=== PATIENT | female | born 1940 | race Caucasian/White ===

== ENCOUNTER 2017-02-08 12:32 | Inpatient (IN) | payer OTHER, MEDICARE ==
[~2017-02-08] VITALS: Ht 170.2 cm; Wt 90.7 kg
--- NOTE | 2017-02-08 12:36 | ED DYSPNEA/ASTHMA COMPLAINT ---
See Addendum History of Present Illness General Chief Complaint: Dyspnea (COPD, CHF, Other) Stated Complaint: FEVER/SOB Source: old records, EMS Exam Limitations: confusion Vital Signs & Intake/Output Vital Signs & Intake/Output Vital Signs Date Time Temp Pulse Resp B/P Pulse O2 O2 Flow FiO2 Ox Delivery Rate 02/08 1320 97 Part 100% ReBreather 02/08 1317 96 Non 10L ReBreather 02/08 1250 85 24 96 Non 10L ReBreather 02/08 1235 97.3 85 30 147/69 71 Room Air F (NORTH DOS SANTOS) Allergies Coded Allergies: Penicillins (02/08/17) Sulfa (Sulfonamide Antibiotics) (02/08/17) amoxicillin (02/08/17) crab (02/08/17) erythromycin base (02/08/17) potassium iodide (02/08/17) Triage Nurses Notes Reviewed? yes Onset: Gradual Duration: getting worse Timing: recent history Severity: severe Activities at Onset: none HPI: Patient is a 76-year-old female with a past medical history of COPD, osteoarthritis, DIABETES, hyperlipidemia, HYPOTHYROIDISM, morbid obesity, opiate abuse, hypertension who presents to emergency room brought in by ambulance in which patient resides at [facility] for concerns of a 3 to four-day history of worsening gradual onset of lethargy confusion fevers chills and decrease O2 saturation and wheezing. It is noted through [facility] 10 the patient had negative chest x-ray however EMS states that patient was febrile and normotensive however O2 saturation on 3 L was noted to be 82%. Blood sugar was 108 on arrival patient's history is limited due to clinical condition of being confused. Old records do indicate the patient has positive urine culture susceptible to ampicillin (NORTH DOS SANTOS) Past History Medical History Any Pertinent Medical History? see below for history Cardiovascular: hypertension, hyperlipidemia Respiratory: COPD Endocrine: diabetes Surgical History Surgical History: non-contributory Family History Hx Contributory? No (NORTH DOS SANTOS) Review of Systems Review of Systems Constitutional: Reports: see HPI, fever. EENTM: Reports: no symptoms. Respiratory: Reports: see HPI, short of breath, wheezing. Cardiovascular: Denies: chest pain, peripheral edema. GI: Reports: no symptoms. Genitourinary: Reports: no symptoms. Musculoskeletal: Reports: no symptoms. Skin: Reports: no symptoms. Neurological/Psychological: Reports: no symptoms. Hematologic/Endocrine: Reports: no symptoms. Immunologic/Allergic: Reports: no symptoms. All Other Systems: Reviewed and Negative (NORTH DOS SANTOS) Physical Exam Physical Exam General Appearance: mild distress Respiratory: wheezing, respiratory distress (MILD) Comments: HEENT: Normal EENT exam, Neck: Supple, no lymphadenopathy, normal range of motion without pain or tenderness Back: , no CVA tenderness. Cardiovascular: Regular rate and rhythms no murmurs rubs or gallops, normal JVP Abdomen: Soft, nontender nondistended, no appreciable organomegaly. Normal bowel sounds. No ascites Extremity: No edema, no calf tenderness to palpation, normal and equal pulses. Right lower leg chronic well-healing old wound anterior aspect Neuro: Alert oriented x 0, motor sensory normal, Skin: No appreciable rash on exposed skin, skin is warm and dry. Psych: Mood and affect is normal, memory and judgment is normal. Core Measures ACS in differential dx? Yes Severe Sepsis Present: No BC x2: Yes Lactic Acid x2: Yes IV ABX Broad Spectrum: Yes NS/LR Started: Yes Septic Shock Present: No (NORTH DOS SANTOS) Progress Differential Diagnosis: asthma, AMI, bronchitis, costochondritis, CHF, COPD, musculoskeletal pain, pericarditis, pulmonary embolism, pneumonia, pneumothorax, unstable angina Plan of Care: Orders Procedure Date/time Status Renal Dialysis Diet 02/08 D Active LACTIC ACID 02/08 1535 Active URINE DRUGS OF ABUSE 02/08 1412 Active URINALYSIS 02/08 1411 Active Patient Data 02/08 1342 Active OXYGEN SETUP (GEN) 02/08 1341 Active Saline Lock 02/08 1341 Active Admit to inpatient 02/08 1341 Active Vital Signs 02/08 1341 Active Activity/Ambulation 02/08 1341 Active Code Status 02/08 1341 Active Intake & Output 02/08 1245 Active EKG 02/08 1240 Active ARTERIAL BLOOD GAS (GEN) 02/08 1235 Complete Telemetry/Posting Specialist 02/08 1235 Active RAPID VIRAL INFLUENZA A 02/08 1235 Complete BLOOD CULTURE 02/08 1235 Active VIRAL CULTURE 02/08 1235 Active THYROID STIMULATING HORMONE 02/08 1235 Complete TROPONIN LEVEL 02/08 1235 Complete LACTIC ACID 02/08 1235 Complete FREE T4 02/08 1235 Complete D-DIMER 02/08 1235 Complete COMPREHENSIVE METABOLIC PANEL 03/14 1235 Complete CBC WITHOUT DIFFERENTIAL 02/08 1235 Complete Current Medications Sig/[place] Start time Last Medication Dose Stop Time Status Admin Sodium Chloride 1,000 ML BOLUS ONE 02/08 1330 AC (Normal Saline 0.9%) 02/08 142 Sodium Chloride 1,000 ML BOLUS ONE 02/08 1330 AC (Normal Saline 0.9%) 02/08 142 Vancomycin HCl 1,000 MG ONCE ONE 02/08 133 CAN Dextrose/Water 250 ML 02/08 142 (D5W) Laboratory Tests 02/08/17 1255: pH 7.35, pCO2 44, pO2 140 H, HCO3 23, ABG O2 Sat (Measured) 98.0, P-50 (Temp Corrected) N, Carboxyhemoglobin 0.3 L, O2 Concentration % 100%, O2 Delivery Method NRB, Phlebotomy Draw Site RIGHT BRACHIAL 02/08/17 125: TSH Cancelled, Free T4 Cancelled 02/08/17 1253: Anion Gap 14, Estimated GFR 11 L, BUN/Creatinine Ratio 16.1, Glucose 165 H, Lactic Acid 1.9, Calcium 8.3 L, Total Bilirubin 0.4, AST 66 H, ALT 43, Alkaline Phosphatase 69, Troponin I 0.02, Total Protein 6.7, Albumin 3.9, Globulin 2.8, Albumin/Globulin Ratio 1.4, TSH 1.660, Free T4 1.55, D-Dimer 635 H, CBC w Diff NO MAN DIFF REQ, RBC 3.60 L, MCV 84.9, MCH 27.6, RDW 16.2 H, MPV 8.8, Gran % 72.4, Lymphocytes % 17.3 L, Monocytes % 9.8 H, Eosinophils % 0.1, Basophils % 0.4, Absolute Granulocytes 5.5, Absolute Lymphocytes 1.3, Absolute Monocytes 0.7 H, Absolute Eosinophils 0, Absolute Basophils 0, PUBS MCHC 32.5 L 02/08/17 1235: Virus Culture Pending, Urine Color Cancelled, Urine Clarity Cancelled, Urine pH Cancelled, Ur Specific [place] Cancelled, Urine Protein Cancelled, Urine Ketones Cancelled, Urine Nitrite Cancelled, Urine Bilirubin Cancelled, Urine Urobilinogen Cancelled, Ur Leukocyte Esterase Cancelled, Ur Microscopic Cancelled, Urine Hemoglobin Cancelled, Urine Glucose Cancelled Microbiology 02/08 1335 BLOOD: Blood Culture - RECD 02/08 1334 NASOPHARYN: Influenza Virus A & B Rapid Smear - COMP INFLUENZA TYPE B 02/08 1253 BLOOD: Blood Culture - RECD 02/08 1235 URINE ROUT: Urine Culture - CAN Cancelled: Cancelled via OE: Per MD Decision Patient had noted hypoxia with 3 L initially of O2 and which this was increased to nonrebreather patient responded well and then she was subsequently decreased to 6 L currently at 91% no respiratory distress. Patient does have concerns of wheezing and crackles and chest x-ray showing concerns OF pneumonia and which patient initially was administered vancomycin and Fortaz however due to critical findings of acute kidney injury that vancomycin was withheld and per hospital staffed they said that they will administer the antibiotics. Fortaz was continued and vancomycin was discontinued. Patient was ordered IV fluid resuscitation. I discussed admission with patient who agrees Patient had elevated d-dimer in which a pulmonary embolism isn't not essentially ruled out however patient will require a VQ scan Patient was given nebulizer treatment and IV steroids (NORTH DOS SANTOS) Diagnostic Imaging: Viewed by Me: Radiology Read. CXR Impression: see comments Initial ED EKG: normal p-waves, normal QRS complex, normal sinus rhythm, 82 BPM NSR Comments: PATIENT: RORY ZUNIGA PRESENT AGE: 76 PATIENT ACCOUNT NO: [id number] : 42 LOCATION: [facility] ORDERING PHYSICIAN: NORTH YOUNG SERVICE DATE: 02/08/17 EXAM TYPE: RAD - XRY-PORTABLE CHEST XRAY EXAMINATION: XR PORTABLE CHEST CLINICAL INFORMATION: Hypoxia. COPD. COMPARISON: None TECHNIQUE: Portable AP view of the chest was obtained. FINDINGS: Evaluation is limited by patient body habitus. Linear opacity in the right upper lobe is consistent with scarring or subsegmental atelectasis. No focal consolidation is demonstrated. There is no evidence for pulmonary edema. Heart size is mildly enlarged. There is unfolding of the thoracic aorta. IMPRESSION: Limited evaluation. Small linear opacity right upper lobe. Mildly enlarged cardiac silhouette. (NORTH DOS SANTOS) Departure Departure Disposition: STILL A PATIENT Condition: Guarded Clinical Impression Primary Impression: Pneumonia Secondary Impressions: Acute kidney failure, COPD (chronic obstructive pulmonary disease), Respiratory failure Referrals: ROB HICKS MD (PCP/Family) Departure Forms: Customer Survey General Discharge Information Admission Note Spoke With: ESTUARDO VERMA MD Documentation of Exam: Documentation of any treatments & extenuating circumstances including Concerns Regarding Discharge (functional status, medication knowledge or non-compliance, living conditions, etc.) that warrant an admission rather than observation: [ Discussed admission with Dr. Verma who agrees with general medicine admission for concerns of pneumonia, respiratory failure and kidney failure in which patient requires IV antibiotics, IV fluid resuscitation and IV steroids and NEB treatments repeat labs outpatient treatment at this time due to critical findings would be medically harmful] (NORTH DOS SANTOS) PA/MOLD MAKER PLASTER Co-Sign Statement Statement: ED Attending supervision documentation- x I saw and evaluated the patient. I have also reviewed all the pertinent lab results and diagnostic results. I agree with the findings and the plan of care as documented in the PA's/MOLD MAKER PLASTER's documentation. [] I have reviewed the ED Record and agree with the PA's/MOLD MAKER PLASTER's documentation. [] Additions or exceptions (if any) to the PAs/MOLD MAKER PLASTER's note and plan are summarized below: [] (BLANCHE ARAGON,ANTONIO) Critical Care Note Critical Care Note Critical Care Time: 30-74 min (NORTH DOS SANTOS)
--- NOTE | 2017-02-08 12:45 | NUR ---
SUSAN FROM [facility] C/C FEVERS AND AMS SINCE TUESDAY. PT ARRIVES AGITATED AND O2 SAT 71% ON ROOM AIR, ONLY IMPROVED TO 77% ON 6LNC. DIFFUSE WHEEZES THROUGHOUT LUNG MENDEZ, TACHYPNIC RATE 30. PLACED ON HIGH FLOW NRB IMPROVED O2 SAT 96% AND RESP THERAPIST PAGED FOR BREATHING TREATMENT. ARRIVES DISORIENTED TO PLACE AND TIME, IRRITABLE AND DEMANDING TO GO HOME. ABLE TO BE VERBALLY DEESCALATED WITH EMOTIONAL SUPPORT PROVIDED. DENIES N/V/D BUT ABDOMEN SLIGHTLY DISTENDED AND LEGS SWOLLEN R>L WITH WELL HEALING CHRONIC ULCER.
--- NOTE | 2017-02-08 12:59 | NUR ---
RT AT BEDSIDE FOR DUONEB AND ABG. LABS DRAWN AND SENT (BLUE, SST X2, LAV, MENDOSA, CULTURES X1 SET). PT REMAINS IRRITABLE AND RESISTANT TO TX. SINUS RATE 83 ON CM AND AFEBRILE BUT COLD AND CLAMMY TO TOUCH. O2 SAT 96% DURING TX
[2017-02-08 13:07] LABS: ABSOLUTE BASOPHIL COUNT 0 /CUMM (0.0-0.2); ABSOLUTE EOSINOPHIL COUNT 0 /CUMM (0.0-0.7); ABSOLUTE GRANULOCYTE CT 5.5 /CUMM (1.4-6.5); ABSOLUTE LYMPH COUNT 1.3 /CUMM (1.2-3.4); ABSOLUTE MONOCYTE COUNT 0.7 /CUMM (0.10-0.60); BASOPHIL % 0.4 % (0.0-2.0); EOSINOPHIL % 0.1 % (0-5); GRANULOCYTE % 72.4 % (42.2-75.2); HEMATOCRIT 30.6 % (37-47); MEAN CORPUSCULAR HGB 27.6 PG (27.0-31.0); MEAN CORPUSCULAR HGB CONC 32.5 G/DL (33.0-37.0); MEAN CORPUSCULAR VOLUME 84.9 FL (81.0-99.0); MEAN PLATELET VOLUME 8.8 FL (7.4-10.4); PLATELET COUNT 214 /CUMM (130-400); RBC DISTRIBUTION WIDTH 16.2 % (11.5-14.5); WHITE BLOOD CELL COUNT 7.6 /CUMM (4.8-10.8)
--- NOTE | 2017-02-08 13:17 | RADIOLOGY REPORT ---
EXAMINATION: XR PORTABLE CHEST CLINICAL INFORMATION: Hypoxia. COPD. COMPARISON: None TECHNIQUE: Portable AP view of the chest was obtained. FINDINGS: Evaluation is limited by patient body habitus. Linear opacity in the right upper lobe is consistent with scarring or subsegmental atelectasis. No focal consolidation is demonstrated. There is no evidence for pulmonary edema. Heart size is mildly enlarged. There is unfolding of the thoracic aorta. IMPRESSION: Limited evaluation. Small linear opacity right upper lobe. Mildly enlarged cardiac silhouette.
--- NOTE | 2017-02-08 13:17 | NUR ---
PT DECREASED TO 60% AND TOLERATING WELL. LETHARGIC AND AROUSABLE TO VERBAL STIMULI
--- NOTE | 2017-02-08 13:36 | NUR ---
FLU SWAB OBTAINED/SENT TO LAB. NORTH YOUNG IN RE-EVAL AND SPEAK WITH PT REGARDING PLAN OF CARE, BAILEY. XIAO MCHUGH AT BEDSIDE FOR BLOOD CULTURE # 2.
--- NOTE | 2017-02-08 13:44 | NUR ---
UPDATE GIVEN TO NURSE AT [facility] REGARDING ADMISSION
--- NOTE | 2017-02-08 13:50 | NUR ---
MED WITH FORTAZ 1GM IV ORDERED, TOLERATED WELL. IVF'S NS 1L BOLUS #1 INFUSING WITHOUT DIFFICULTY AT THIS TIME.
--- NOTE | 2017-02-08 14:01 | NUR ---
CRITICAL TEST RESULTS [id number] RORY ZUNIGA 76 F TESTS AND RESULTS: INFLUENZA B Results received and read back by: ADDY SIM Results received date and time: 02/08/17 1402 The following provider was notified of the results, and read the results back: HANNAH JACKSON Notified date and time: 02/08/17 at 1400
--- NOTE | 2017-02-08 14:24 | NUR ---
PT ADMITTED TO ROOM 184-1
--- NOTE | 2017-02-08 14:27 | NUR ---
DAUGHTER TINO ZUNIGA [phone] ( CELL) , (HOME), PLEASE UPDATE.
--- NOTE | 2017-02-08 14:30 | NUR ---
PT SLEEPING, VERBALLY AROUSABLE. HOUSE STAFF AT BEDSIDE FOR EVAL AT THIS [facility].
--- NOTE | 2017-02-08 15:23 | NUR ---
REPORT CALLED TO TELE NURSE DEIDRE. PT ASKING TO GO HOME "I HAVE TO GET HOME TO MY ", O2 DECREASED TO PT'S BASELINE 4L NC, PT UP TO BEDSIDE COMMODE TO VOID, URINE APPEARS CLOUDY DARK YELLOW, STRONG ODOR. URINE TRIO SENT TO LAB. O2 SATS WHEN RETURNED TO STRETCHER, 77% ON 4L NC, HOUSE STAFF IN TO EVAL AND AWARE. O2 SATS 90-91% ON 6L NC AT THIS TIME.
--- NOTE | 2017-02-08 15:25 | NUR ---
IVF'S NS 1L # 2 BOLUS INFUSING WITHOUT DIFFICULTY AT THIS TIME.
--- NOTE | 2017-02-08 15:49 | NUR ---
PT ACCIDENTLY PULLED IV OUT, # 20 PLACE TO RW, IVF'S NS 1L # 2 RE-STARTED, INFUSING WITHOUT DIFFICULTY AT THIS TIME, HOSPITALIST DR PAVON IN TO EVAL AT PRESENT.
--- NOTE | 2017-02-08 16:00 | NUR ---
PT REQUESTING TO GO BACK TO [facility] TO BE WITH HER , PT SPEAKING ON PHONE WITH DAUGHTER, DR PAVON REMAINS AT BEDSIDE.
--- NOTE | 2017-02-08 16:09 | History & Physical ---
See Addendum NEISHA ARAGON,[facility] 02/08/17 1608: General Information and HPI MD Statement: I have seen and personally examined RORY ZUNIGA and documented this H&P. The patient is a 76 year old F who presented with a patient stated chief complaint of [alter mental status confusion]. Source of Information: patient, old records, W10 Exam Limitations: poor historian History of Present Illness: 76/F with PMH of COPD, hypertension, hyperlipidemia, diabetes who was send [facility] by [facility] because of altered mental status and confusion that started last Tuesday. Initially patient refused admission, because she would like to stay with her at [facility], after more than an hour she agreed to be admitted if we allowed her to leave AMA when she want to. Patient was mildly agitated and did not provide sufficient history. Most of the history was obtained from the nurse home staff and W 10. Last Tuesday she had a fever, confusion and altered mental status soon after she started respiratory distress and started to desaturate. Patient present to the ED 3 days ago for which UA and urine culture was done, result was back positive for enterococcus that sensitive to ampicillin, vancomycin, nitrofurantion. Allergies/Medications Allergies: Coded Allergies: Penicillins (02/08/17) Sulfa (Sulfonamide Antibiotics) (02/08/17) amoxicillin (02/08/17) crab (02/08/17) erythromycin base (02/08/17) potassium iodide (02/08/17) Past History Travel History Traveled to [place] past 21 day No Medical History Neurological: migraine EENT: NONE Cardiovascular: hypertension, hyperlipidemia Respiratory: COPD Gastrointestinal: NONE Hepatic: NONE Renal: NONE Musculoskeletal: osteoarthritis, CHRONIC PAIN Psychiatric: OPIOID ABUSE Endocrine: diabetes Blood Disorders: NONE Cancer(s): NONE Surgical History Surgical History: non-contributory Review of Systems Review of Systems Constitutional: Denies: chills, fever. Comments She refused to give review system, because she was refusing the admissions Exam & Diagnostic Data Last 24 Hrs of Vital Signs/I&O Vital Signs Date Time Temp Pulse Resp B/P Pulse O2 O2 Flow FiO2 Ox Delivery Rate 02/08 1849 93 Nasal 75% Cannula 02/08 184 91 Nasal 75% Cannula 02/08 181 98.5 80 20 138/70 91 Nasal 75% Cannula 02/08 1744 Nasal 70% Cannula 02/08 1620 99.8 88 20 128/90 92 02/08 1534 91 Nasal 6.0L Cannula 02/08 1534 77 Nasal 4.0L Cannula 02/08 1430 97.5 88 24 132/84 91 Nasal 6.0L Cannula 02/08 1320 97 Part 100% ReBreather 02/08 1317 96 Non 10L ReBreather 02/08 1250 85 24 96 Non 10L ReBreather 02/08 1235 97.3 85 30 147/69 71 Room Air Intake & Output 02/08 1600 02/08 0800 02/08 0000 Intake Total 2000 Output Total Balance 1999 Intake, IV 2000 Patient 108.862 kg Weight Physical Exam General Appearance Alert, Oriented X3, not cooperative and refusing admission Skin No Rashes HEENT Atraumatic, PERRLA, dry mucous membrane Cardiovascular Regular Rate, Normal S1, Normal S2, No Murmurs Lungs decreased air entry over both lungs Abdomen Soft, No Tenderness Neurological Normal Speech Extremities right leg has a large scar because of previous nonhealing ulcer that was treated surgically Last 24 Hrs of Labs/Carl[place]: Laboratory Tests 02/08/17 1936: pH 7.33 L, pCO2 44, pO2 89, HCO3 23, ABG O2 Sat (Measured) 95.0 L, P-50 (Temp Corrected) N, Carboxyhemoglobin 0.2 L, O2 Concentration % 75%, Temperature 98.5 , O2 Delivery Method HIGH FLOW N/C, Phlebotomy Draw Site RIGHT BRACHIAL 02/08/17 1800: Lactic Acid 1.0 02/08/17 1800: Anion Gap 10, Estimated GFR 15 L, BUN/Creatinine Ratio 19.0, Urinalysis LIGHT H, Urine Color YEL, Urine Clarity HAZY H, Urine pH 6.0, Ur Specific [place] 1.015, Urine Protein TRACE H, Urine Ketones NEG, Urine Nitrite POS H, Urine Bilirubin NEG, Urine Urobilinogen 0.2, Ur Leukocyte Esterase SMALL H, Ur Microscopic SEDIMENT EXAMINED, Urine RBC 1-3, Urine WBC 15-25 H, Ur Epithelial Cells FEW, Urine Bacteria MOD H, Urine Hemoglobin MOD H, Urine Glucose NEG 02/08/17 1520: Urine Color YEL, Urine Clarity HAZY H, Urine pH 5.5, Ur Specific [place] 1.025, Urine Protein TRACE H, Urine Ketones NEG, Urine Nitrite POS H, Urine Bilirubin NEG, Urine Urobilinogen 0.2, Ur Leukocyte Esterase MOD H, Ur Microscopic SEDIMENT EXAMINED, Urine RBC PACKD H, Urine WBC PACKD H, Ur Epithelial Cells MANY H, Urine Bacteria MANY H, Urine Hemoglobin MOD H, Urine Glucose NEG 02/08/17 1520: Urine Opiates Screen 1387.00, Methadone Screen 82, Barbiturate Screen < 60, Ur Phencyclidine Scrn < 6.00, Amphetamines Screen < 100, U Benzodiazepines Scrn < 85, Urine Cocaine Screen < 50, Urine Cannabis Screen < 5.00, Ur Random Creatinine 136.2, Ur Random Sodium 49, Ur Random Potassium 21.1, Fraction Sodium Excret 1.1 H 02/08/17 1255: pH 7.35, pCO2 44, pO2 140 H, HCO3 23, ABG O2 Sat (Measured) 98.0, P-50 (Temp Corrected) N, Carboxyhemoglobin 0.3 L, O2 Concentration % 100%, O2 Delivery Method NRB, Phlebotomy Draw Site RIGHT BRACHIAL 02/08/17 1253: TSH Cancelled, Free T4 Cancelled 02/08/17 1253: Anion Gap 14, Estimated GFR 11 L, BUN/Creatinine Ratio 16.1, Glucose 165 H, Lactic Acid 1.9, Calcium 8.3 L, Total Bilirubin 0.4, AST 66 H, ALT 43, Alkaline Phosphatase 69, Troponin I 0.02, Total Protein 6.7, Albumin 3.9, Globulin 2.8, Albumin/Globulin Ratio 1.4, TSH 1.660, Free T4 1.55, D-Dimer 635 H, CBC w Diff NO MAN DIFF REQ, RBC 3.60 L, MCV 84.9, MCH 27.6, RDW 16.2 H, MPV 8.8, Gran % 72.4, Lymphocytes % 17.3 L, Monocytes % 9.8 H, Eosinophils % 0.1, Basophils % 0.4, Absolute Granulocytes 5.5, Absolute Lymphocytes 1.3, Absolute Monocytes 0.7 H, Absolute Eosinophils 0, Absolute Basophils 0, PUBS MCHC 32.5 L 02/08/17 1235: Virus Culture Pending, Urine Color Cancelled, Urine Clarity Cancelled, Urine pH Cancelled, Ur Specific [place] Cancelled, Urine Protein Cancelled, Urine Ketones Cancelled, Urine Nitrite Cancelled, Urine Bilirubin Cancelled, Urine Urobilinogen Cancelled, Ur Leukocyte Esterase Cancelled, Ur Microscopic Cancelled, Urine Hemoglobin Cancelled, Urine Glucose Cancelled Microbiology 02/08 1800 URINE ROUT: Urine Culture - RECD 02/08 1335 BLOOD: Blood Culture - RECD 02/08 1334 NASOPHARYN: Influenza Virus A & B Rapid Smear - COMP INFLUENZA TYPE B 02/08 1253 BLOOD: Blood Culture - RECD 02/08 1235 URINE ROUT: Urine Culture - CAN Cancelled: Cancelled via OE: Per MD Decision Assessment/Plan Assessment: #Alter mental status and confusion Patient presented with confusion that started last Tuesday, she was found to have UTI that proven by urine culture that was done 3 days ago. The culture grew enterococci that's sensitive for penicillin and vancomycin, however she is allergic to penicillin. * We will start patient on vancomycin * We will order random Vanco level in the morning and dose accordingly #Acute hypoxic respiratory failure Patient has a history of COPD she is on 4 L of oxygen at home. She was found to have influenza B. . She desaturated in the ED and now she oxygen requirement has increased. * Patient will be on Tamiflu * She will be given oxygen as needed #Acute kidney injury Patient creatinine was 4.1 on admission, it was WNL 3 days ago, this is most likely because of the dehydration. At BUN/creatinine is above 15 which indicated prerenal. * We will order urine electrolytes * We will continue hydration * We will recheck renal function tonight * We will place Vaca to strictly control I/os * If did not improve we will consult nephrology #Hypertension and DM * We will continue antihypertensive medication * We will place patient on Levemir and sliding scale Consistent carbohydrate 3 DVT prophylaxis heparin subcutaneous DNR/DNI As Ranked By This Provider Problem List: 1. Acute kidney failure 2. Respiratory failure Core Measures/Miscellaneous Acute Coronary Syndrome ACS Diagnosis: No Cerebrovascular Accident CVA/TIA Diagnosis: No Congestive Heart Failure CHF Diagnosis: No Venous Thromboembolism VTE Risk Factors: Acute medical illness, Age > 40, Obesity [facility] prophylaxis d/t: No contraindications No VTE Pharm Prophylaxis d/t: No contraindications VTE Diagnosis: No VTE Type: NONE VTE Confirmed by (Test): NONE Severe Sepsis Severe Sepsis Present: No BC x2: Yes Lactic Acid x2: Yes IV ABX Broad Spectrum: Yes NS/LR Started: Yes Septic Shock Septic Shock Present: No Miscellaneous Documentation Attending Case Discussed With: ESTUARDO PAVON MD Primary Care Physician: ROB HICKS MD Patient sees these Specialists ROB HICKS MD Level of Patient Care: Telemetry JOHN ARAGONCATARINA 02/08/17 1752: General Information and HPI Allergies/Medications Home Med list Diltiazem HCl (Cardizem Cd) 180 MG CAP.ER.24H 1 CAP PO DAILY HTN (Reported) Hydrochlorothiazide 25 MG TABLET 1 TAB PO DAILY BLOOD PRESSURE (Reported) Insulin Aspart (Novolog) 100 UNIT/ML VIAL 12 UNITS SC TIDAC DM (Reported) Insulin Detemir (Levemir) 100 UNIT/ML VIAL 26 UNITS SC BID DM (Reported) Levothyroxine Sodium 75 MCG TABLET 1 TAB PO DAILY HYPOTHYROID (Reported) Linagliptin (Tradjenta) 5 MG TABLET 1 TAB PO DAILY DM (Reported) Liraglutide (Victoza 2-Juan) 0.6 MG/0.1 ML (18 MG/3 ML) PEN.INJCTR 1.2 MG SC DAILY DM (Reported) Meloxicam 15 MG TABLET 1 TAB PO DAILY PAIN (Reported) Metformin HCl 1,000 MG TABLET 1 TAB PO BID DM (Reported) Montelukast Sodium 10 MG TABLET 1 TAB PO DAILY COUGH (Reported) Resident Review Statement Resident Statement: examined this patient, discussed with fall intern, agreed with fall intern, discussed with family, reviewed EMR data (avail) Other Findings: 76-year-old female with past medical history of COPD, hypertension, hyperlipidemia, diabetes presents from [facility] with complaints of confusion that started last Tuesday. Patient was unable to give information as she was very agitated and adamant about being discharged. Information was obtained from the halfway staff. According to the staff She was febrile this last Tuesday associated with confusion. Patient also was have respiratory distress which started at the same time. Mohamud has some forgetfullness at base line but other hurley able to make decisions. ROS was unobtainable as she was refusing to be admitted SHe has UA done 3 days ago and clutures are growing enterococcus sensitive to vancomycin, nitrofuratoin, ampicillin Please refer to H&P for Labs and Imaging Assesment and plan: 1. Confusion in the setting of UTI/flu positive: We will admit patietn in GM floor. Start her on Vancomycin as she is allergic to penicillin and she is unable to give information on allergy. We will give one dose and check random vanco and dose accordingly. Will follow up CBC. Start tamiflu renally adjusted. Her dose should be inreased in AM if cr normalises. 2. Acute hyoxic respiratory failure in the setting of flu and h/o COPD: Her O2 sats stabelized and she was in 6 L NC( 4 L at baseline) We will continue TRC nebs. 3. JAIRO: moslty prerenal. We will add on Fena( unclear if this will beof any use as patient received IV fluids) We will continue hydraion. Recheck BEPtonight. If cr does not normalize we will check renal u/. s and nephrology consult in AM. We will place foles in for I/O's 4. HTN: we will continue her home medication 5. DM: we will continue on Levemir and NSS with finger sticks DNR/DNI DVT ppx with heparin ESTUARDO WEBB MD 02/08/172125: Attending MD Review Statement Attending Statement Attending MD Statement: examined this patient, discuss w/resident/PA/HEADER BOSS, agreed w/resident/PA/HEADER BOSS, discussed with family, reviewed EMR data (avail), discussed with nursing, reviewed images, amended to note Attending Assessment/Plan: The patient is a 76 yo female with h/o COPD, HTN, DM2, & HL who was sent from [facility] today to the [place] ED with c/o dyspnea, hypoxemia and cough. She was found to be hypoxic with pulse ox 82% and required oxygen. Was also found to have JAIRO with Cr 3.1. Her rapid flu test in the ED was positive for influenza B. She denied any fever though has had some chills. Cough has been non -productive. She initially wished to leave the ED as her is also a patient at [facility]. Once discussed with me and her daughter (via phone), she agreed to stay. She had been noted to be confused on initial presentation, however her mental status improved post oxygen and treatment. She had a positive urine culture done at the [facility] that grew enterococcus. Physical Exam: VS: T 97.3, P 84, R 30 BP 17/69, PO 71% on RA on presentation- PO 91R on 75% mask- improved post treatment. HEENT: eyes- PERRLA, EOMI nisreen- dry mucosa Neck: no JVD or bruits Chest: diminished breath sounds and mild rhonchi/wheeze Cor: RRR, nl S1, S2 w/o murm Abd: BS+, soft, NT Ext: RLE scar as described above, trace edema Neuro: alert & oriented at time of my exam, non-focal neuro exam Labs/Tests- as above Impression/Plan: #Altered Mental Status- presented with increased confusion that is most likely multifactorial. She has been hypoxemia and with UTI. Also positive for influenza B. Plan: Will treat above and monitor mental status. #Acute & Chronic Hypoxic Respiratory Failure- due to COPD exacerbation and influenza. Oxygen requirement has increased. Flu was not known initially in ED. Plan: Agree with Tamiflu (adjust for renal failure) and follow. #Acute Kidney Injury- most likely secondary to volume depletion. Plan: Agree with hydration & close follow-up. If not improving will do renal US and obtain nephrology consult. #COPD- does have some wheezing. Plan: Albuterol aerosol, etc. Continue to evaluate for steroids, however will hold at present due to known influenza. #HTN- BP as above. Plan: Continue usual medications. #UTI- has enterococcal UTI. Patient is PCN allergic (anaphylaxis) Plan: Agree with 1 dose of Vanco and will decide tomorrow regarding alternatives.
--- NOTE | 2017-02-08 16:18 | NUR ---
NS 1L BOLUS # 3 INFUSING WITHOUT DIFFICULTY AT THIS TIME.
--- NOTE | 2017-02-08 16:19 | NUR ---
PT ROOM # 184-01 VIA STRETCHER WITH DISTRIBUTION AT THIS TIME.
[2017-02-08] MEDS ORDERED: HYDROCHLOROTHIA25 M1 PO (16:40)
[2017-02-08] MEDS ORDERED: LEVOTHYROXINE75 MCG PO (16:41)
[2017-02-08] MEDS ORDERED: TRADJENTA5 M1 PO (16:41)
[2017-02-08] MEDS ORDERED: METFORMIN HCL1000 M1 PO (16:42)
[2017-02-08] MEDS ORDERED: NOVOLOG100 UNIT/2 SC (16:43)
[2017-02-08] MEDS ORDERED: VICTOZA 2-0.6 MG/0.1 SC (16:43)
[2017-02-08] MEDS ORDERED: LEVEMIR100 UNIT/1 SC (16:44)
[2017-02-08] MEDS ORDERED: MELOXICAM15 M1 PO (16:44)
[2017-02-08] MEDS ORDERED: MONTELUKAST SOD10 M1 PO (16:44)
[2017-02-08] MEDS ORDERED: CARDIZEM CD180 M1 PO (16:45)
[2017-02-08 18:12] VITALS: BP 138/70
--- NOTE | 2017-02-08 18:19 | Admission Certification ---
Admission Certification Certification Statement - As attending physician, I certify that at the time of - admission, based on clinical presentation, severity of - symptoms, need for further diagnostic testing and - therapeutic interventions, and risk of adverse outcomes - without in-hospital treatment, in my clinical assessment, - this patient requires an acute hospital stay for a minimum - of two nights or longer. I have also considered psychsocial - factors such as support system, advanced age, financial - issues, cognitive issues, and failed out-patient treatments, - past re-admission history, safety of patient, and lack of - compliance as applicable. Specific rationale supporting this admission is: The patient presents with acute hypoxic respiratory failure secondary to influenza B and acute renal failure. Needs IV hydration, Tamiflu, close respiratory monitoring and nasal oxygen. Close follow-up of renal function.
--- NOTE | 2017-02-08 19:39 | NUR ---
PT ADMITTED FROM ED. CARNEY CATH PLACED, UA/UC SENT. K AND LACTIC SENT. BS 252, COVERED W NOVOLOG AND DIET OREDERED AND PROVIDED TO PT. PROGRESIVELY BECAME AGITATED, RESTLESS, AGITATED, SOB, DIAPHORETIC. 02 SATS 80'S ON 6L. PT PLACED ON HIGH FLOW NC 70 %, INCREASED TO 75%. DR CAREY TO BEDSIDE. ABG DRAWN. PT GIVEN RESP TX. PUT ON BEDSIDE PULSE OX MONITOR. PT SATS STABLE ON 75% NC. LESS AGITATED AT THIS TIME. REPORT GIVEN TO ONCOMING RN.
[2017-02-09 04:54] VITALS: BP 142/86
--- NOTE | 2017-02-09 07:10 | PN- Housestaff ---
MORENA CAREY 02/09/17 0709: Subjective Follow-up For: - UTI - JAIRO - Flu Tele-Events Since Last Visit: Currently [facility] hold Subjective: The patient was comfortable this morning. Has been complaining of difficulty breathing. Has been unhappy that she is being admitted in the hospital. Vitals were stable overnight. Oxygen saturation, drop noted when supplemental oxygen was being titrated down. Gave a history of COPD 1 year, and no clear knowledge of pulmonary evaluation being done. Requested Freddie Ritter MD for evaluation. Discussed with the patient about the possibility of getting ultrasound Dopplers lower extremities to rule out any DVT, ultrasound abdomen to rule out any intra- abdominal pathology. Also recommended CT chest. The patient declined the above -mentioned tests. Review of Systems Constitutional: Reports: see HPI. Objective Last 24 Hrs of Vital Signs/I&O Vital Signs Date Time Temp Pulse Resp B/P Pulse O2 O2 Flow FiO2 Ox Delivery Rate 02/09 0454 96.8 79 22 142/86 94 Nasal 75% Cannula 02/09 0358 97 Nasal 75% Cannula 02/09 0000 97 Nasal 70% Cannula 02/08 2051 95 Nasal 75% Cannula 02/08 1849 93 Nasal 75% Cannula 02/08 1843 91 Nasal 75% Cannula 02/08 1812 98.5 80 20 138/70 91 Nasal 75% Cannula 02/08 1744 Nasal 70% Cannula 02/08 1620 99.8 88 20 128/90 92 02/08 1534 91 Nasal 6.0L Cannula 02/08 1534 77 Nasal 4.0L Cannula 02/08 1430 97.5 88 24 132/84 91 Nasal 6.0L Cannula 02/08 1320 97 Part 100% ReBreather 02/08 1317 96 Non 10L ReBreather 02/08 1250 85 24 96 Non 10L ReBreather 02/08 1235 97.3 85 30 147/69 71 Room Air Intake & Output 02/09 0800 02/09 0000 02/08 1600 Intake Total 1040 2280 2000 Output Total 1900 1800 Balance -746 074 9473 Intake, IV 800 1800 2000 Intake, Oral 240 480 Output, Urine 1900 1800 Patient 200 lb 240 lb Weight Physical Exam General Appearance: No Acute Distress Other Physical Findings: General Exam: AAOx3, No acute distress, Skin: No rashes, no breakdown HEENT: PERRLA Neck: Supple, No JVD No cervical lymphadenopathy CVS: Reg Rate, Normal S1,S2, No MGR Resp: Decreased air entry, no ronchi/rales Abdomen: Soft, No tenderness, Normal Bowel Sounds Neuro: Normal Speech, limited neurological exam, the patient uncooperative. Extremities: No cyanosis, pedal edema Current Medications: Current Medications Sig/[place] Start time Last Medication Dose Route Stop Time Status Admin Acetaminophen 650 MG Q8P PRN 02/08 1715 AC 02/09 PO 0034 Acetaminophen 1,000 MG Q8P PRN 02/08 1715 AC IV Albuterol Sulfate 3 ML BID 02/08 2200 AC 02/08 INH 1846 Albuterol Sulfate 3 ML ONCE ONE 02/08 1245 DC 02/08 INH 02/08 1246 1258 Ceftazidime 0 .STK-MED ONE 02/08 1342 DC .ROUTE Ceftazidime 1,000 MG ONCE ONE 02/08 1330 DC 02/08 IV 02/08 1331 1340 Diltiazem HCl 180 MG DAILY 02/09 1000 AC PO Heparin Sodium 5,000 UNIT Q8 02/08 2200 AC 02/09 (Porcine) SC 0601 Insulin Aspart 0 TIDAC 02/08 1700 AC 02/08 SC 1805 Insulin Detemir 26 UNITS BID 02/08 2200 AC 02/08 SC 2131 Ipratropium [place] 2.5 ML BID 02/08 2200 AC 02/08 INH 1846 Ipratropium [place] 2.5 ML ONCE ONE 02/08 1245 DC 02/08 INH 02/08 1246 1258 Levothyroxine Sodium 0.075 MG DAILY AC 02/09 0700 AC 02/09 PO 0601 Methylprednisolone 0 .STK-MED ONE 02/08 1306 DC .ROUTE Methylprednisolone 125 MG ONCE ONE 02/08 1245 DC 02/08 IV 02/08 1246 1310 Montelukast Sodium 10 MG DAILY 02/09 1000 AC PO Morphine Sulfate 1 MG Q8P PRN 02/08 1715 AC IV Oseltamivir Phosphate 75 MG BID 02/08 2200 CAN PO 02/12 2159 Oseltamivir Phosphate 30 MG 1800 02/08 1800 AC 02/08 PO 02/12 1759 2129 Ramelteon 8 MG ONCE ONE 02/08 2300 DC 02/08 PO 02/08 2301 2249 Sodium Chloride 1,000 ML Q10H 02/08 1645 AC 02/09 IV 0027 Sodium Chloride 1,000 ML BOLUS ONE 02/08 1330 DC 02/08 IV 02/08 1429 1340 Sodium Chloride 1,000 ML BOLUS ONE 02/08 1330 DC 02/08 IV 02/08 1429 1518 Sodium Chloride 1,000 ML BOLUS ONE 02/08 1330 DC / IV 02/08 1429 1620 Sodium Polystyrene 60 ML ONCE ONE 02/08 2015 DC 02/08 Sulfonate PO 02/08 Vancomycin HCl 1,500 MG ONCE ONE 02/08 1730 DC 02/08 Dextrose/Water 250 ML IV 02/08 1829 1957 Vancomycin HCl 1,000 MG ONCE ONE 02/08 1330 CAN Dextrose/Water 250 ML IV 02/08 1429 Last 24 Hrs of Lab/[place] Results Last 24 Hrs of Labs/Mics: Laboratory Tests 02/08/17 1936: pH 7.33 L, pCO2 44, pO2 89, HCO3 23, ABG O2 Sat (Measured) 95.0 L, P-50 (Temp Corrected) N, Carboxyhemoglobin 0.2 L, O2 Concentration % 75%, Temperature 98.5 , O2 Delivery Method HIGH FLOW N/C, Phlebotomy Draw Site RIGHT BRACHIAL 02/08/17 1800: Lactic Acid 1.0 02/08/17 1800: Anion Gap 10, Estimated GFR 15 L, BUN/Creatinine Ratio 19.0, Urinalysis LIGHT H, Urine Color YEL, Urine Clarity HAZY H, Urine pH 6.0, Ur Specific [place] 1.015, Urine Protein TRACE H, Urine Ketones NEG, Urine Nitrite POS H, Urine Bilirubin NEG, Urine Urobilinogen 0.2, Ur Leukocyte Esterase SMALL H, Ur Microscopic SEDIMENT EXAMINED, Urine RBC 1-3, Urine WBC 15-25 H, Ur Epithelial Cells FEW, Urine Bacteria MOD H, Urine Hemoglobin MOD H, Urine Glucose NEG 02/08/17 1520: Urine Color YEL, Urine Clarity HAZY H, Urine pH 5.5, Ur Specific [place] 1.025, Urine Protein TRACE H, Urine Ketones NEG, Urine Nitrite POS H, Urine Bilirubin NEG, Urine Urobilinogen 0.2, Ur Leukocyte Esterase MOD H, Ur Microscopic SEDIMENT EXAMINED, Urine RBC PACKD H, Urine WBC PACKD H, Ur Epithelial Cells MANY H, Urine Bacteria MANY H, Urine Hemoglobin MOD H, Urine Glucose NEG 02/08/17 1520: Urine Opiates Screen 1387.00, Methadone Screen 82, Barbiturate Screen < 60, Ur Phencyclidine Scrn < 6.00, Amphetamines Screen < 100, U Benzodiazepines Scrn < 85, Urine Cocaine Screen < 50, Urine Cannabis Screen < 5.00, Ur Random Creatinine 136.2, Ur Random Sodium 49, Ur Random Potassium 21.1, Fraction Sodium Excret 1.1 H 02/08/17 1255: pH 7.35, pCO2 44, pO2 140 H, HCO3 23, ABG O2 Sat (Measured) 98.0, P-50 (Temp Corrected) N, Carboxyhemoglobin 0.3 L, O2 Concentration % 100%, O2 Delivery Method NRB, Phlebotomy Draw Site RIGHT BRACHIAL 02/08/17 1253: TSH Cancelled, Free T4 Cancelled 02/08/17 1253: Anion Gap 14, Estimated GFR 11 L, BUN/Creatinine Ratio 16.1, Glucose 165 H, Lactic Acid 1.9, Calcium 8.3 L, Total Bilirubin 0.4, AST 66 H, ALT 43, Alkaline Phosphatase 69, Troponin I 0.02, Total Protein 6.7, Albumin 3.9, Globulin 2.8, Albumin/Globulin Ratio 1.4, TSH 1.660, Free T4 1.55, D-Dimer 635 H, CBC w Diff NO MAN DIFF REQ, RBC 3.60 L, MCV 84.9, MCH 27.6, RDW 16.2 H, MPV 8.8, Gran % 72.4, Lymphocytes % 17.3 L, Monocytes % 9.8 H, Eosinophils % 0.1, Basophils % 0.4, Absolute Granulocytes 5.5, Absolute Lymphocytes 1.3, Absolute Monocytes 0.7 H, Absolute Eosinophils 0, Absolute Basophils 0, PUBS MCHC 32.5 L 02/08/17 1235: Virus Culture Pending, Urine Color Cancelled, Urine Clarity Cancelled, Urine pH Cancelled, Ur Specific [place] Cancelled, Urine Protein Cancelled, Urine Ketones Cancelled, Urine Nitrite Cancelled, Urine Bilirubin Cancelled, Urine Urobilinogen Cancelled, Ur Leukocyte Esterase Cancelled, Ur Microscopic Cancelled, Urine Hemoglobin Cancelled, Urine Glucose Cancelled Microbiology 02/08 1800 URINE ROUT: Urine Culture - RECD 02/08 1335 BLOOD: Blood Culture - RECD 02/08 1334 NASOPHARYN: Influenza Virus A & B Rapid Smear - COMP INFLUENZA TYPE B 02/08 1253 BLOOD: Blood Culture - RECD 02/08 1235 URINE ROUT: Urine Culture - CAN Cancelled: Cancelled via OE: Per MD Decision Assessment/Plan Assessment: Mrs. Lynn is a 76-year-old woman with a history of COPD (severe-3.5 L home oxygen), hypertension, diabetes is being evaluated and treated for shortness of breath, hypoxemia, cough and altered mental status. At the time of admission, vitals temperature 97.3, pulse rate 84, respiration 30 , blood pressure 147/69, 71% on room air (improved to 92% on 75% mask), lab findings indicated no leukocytosis (WBC 7.6, hemoglobin 9.9, electrolytes sodium 135, potassium 5.4, chloride 97, serum creatinine 4.1, d-dimer 635, urinalysis revealed leukocyte esterase positive (small), pyuria 15-25, with moderate bacteria and hemoglobin. Past history of enterococci in the urine. Positive for influenza type B. Radiological finding-chest x-ray revealed small linear opacity on the right upper lobe likely from pneumonia. Admission diagnosis: #1 influenza #2 urinary tract infection #3 pneumonia Below is the problem list and plan: #1 shortness of breath-acute hypoxic respiratory failure. Currently requiring higher amount of oxygen to high flow nasal cannula. Reason-likely viral infection. Pulmonary embolism is not completely ruled out. Patient declining all imaging. Continue to taper oxygen as tolerated. No steroids, in view of influenza B positive. Continue Tamiflu. Serum creatinine improved in the last 24 hours. Dose of Tamiflu 3 adjusted. TRC. Inhalers as needed. #2 acute kidney injury-serum creatinine improving. Serum creatinine 1.6. Fluids have been discontinued after current infusion/back. Encourage by mouth intake of fluids. Continues to have elevated serum creatinine and potassium. Kayexalate to be administered in the a.m. after rechecking potassium. #3 altered mental status-patient aggressive at times. Alert and oriented 3. #4 COPD-continue inhalers. Problem List: 1. UTI (urinary tract infection) 2. Acute kidney failure Pain Ratin Pain Location: back Pain Goal: Pain 4 or less Pain Plan: tylenol prn Tomorrow's Labs & Rationales: BEP- abnormal renal function, and sr electrolytes HOOD ARAGONMARIAZENIA 02/09/17 1109: Attending MD Review Statement Attending Statement Attending MD Statement: examined this patient, discuss w/resident/PA/STRAIGHT SLICING MACHINE OPERATOR, agreed w/resident/PA/STRAIGHT SLICING MACHINE OPERATOR, reviewed EMR data (avail) Attending Assessment/Plan: 76F PMH COPD, HTN, HLD, T2DM admitted for shortness of breath and confusion in the setting of Influenza B pneumonia, JAIRO, and Enterococcal UTI. Patient still requiring high flow oxygen and reports intermittent shortness of breath, though she feels adequate right now. No other complaints other than not wanting to be in the hospital. Had been treated with Vancomycin for Enterococcus but no signs of UTI at this time. Cultures thus far have been negative. 1. Influenza B pneumonia 2. Acute on chronic hypoxemic respiratory failure 3. JAIRO 4. Enterococcal UTI Plan - No telemetry monitoring, may go to [facility] when bed [facility] available - Titrate down oyxgen as tolerated - Continue nebulizer treatment - Continue Tamiflu - Pulmonary consult - Continue home medications - DVT PPx
[2017-02-09 08:00] VITALS: BP 148/90
[2017-02-09 08:31] LABS: ABSOLUTE BASOPHIL COUNT 0 /CUMM (0.0-0.2); ABSOLUTE EOSINOPHIL COUNT 0 /CUMM (0.0-0.7); ABSOLUTE GRANULOCYTE CT 5.4 /CUMM (1.4-6.5); ABSOLUTE LYMPH COUNT 0.9 /CUMM (1.2-3.4); ABSOLUTE MONOCYTE COUNT 0.6 /CUMM (0.10-0.60); BASOPHIL % 0.2 % (0.0-2.0); EOSINOPHIL % 0.2 % (0-5); GRANULOCYTE % 77.8 % (42.2-75.2); HEMATOCRIT 29.3 % (37-47); MEAN CORPUSCULAR HGB 27.7 PG (27.0-31.0); MEAN CORPUSCULAR HGB CONC 32.8 G/DL (33.0-37.0); MEAN CORPUSCULAR VOLUME 84.5 FL (81.0-99.0); MEAN PLATELET VOLUME 8.6 FL (7.4-10.4); PLATELET COUNT 185 /CUMM (130-400); RED BLOOD CELL CT 3.47 /CUMM (4.20-5.40); WHITE BLOOD CELL COUNT 6.9 /CUMM (4.8-10.8)
--- NOTE | 2017-02-09 11:01 | Cons- Pulmonary ---
General Information and HPI Consulting Request Date of Consult: 02/09/17 Requested By: crissy History of Present Illness: 76/F with PMH of COPD, hypertension, hyperlipidemia, diabetes who was send him by Jamaal Cramer because of altered mental status and confusion that started last Tuesday. Last Tuesday she had a fever, confusion and altered mental status soon after she started respiratory distress and started to desaturate. Since admission she has been sig hypoxic and was found to have influenza and was in acute renal failure now is improving after ivf pt is a poor historian and wishes not to go through with any further questioning regarding her history No sig sputum but wheeznig Her old records were reviewed from [facility] and she does have copd and previous lung nodules and she had not had a follow up ct Has been on chronic oxygen, but never been intubated Previous echo and cxr and ct suggestive of pulm htn Review of symptoms could not be obtained as patient was anxious and was unable to give good history Follow past history was reviewed she has had previous history of anxiety and opiate use. SIGNIFICANT DATA Chest x-ray revealed bibasilar atelectasis and right upper lobe linear atelectasis with no pulmonary edema Flu swab positive for influenza B Previous urine culture positive for enterococci Initial creatinine is 4.1 now down to 1.6 after IV fluids with adequate urine output with the [place] catheter. Recently she also did have enterococci and a urine which was pansensitive Potassium was slightly elevated Liver enzymes were slightly elevated ABG reviewed which was 7.33/44/89/95 Allergies/Medications Allergies: Coded Allergies: Penicillins (02/08/17) Sulfa (Sulfonamide Antibiotics) (02/08/17) amoxicillin (02/08/17) crab (02/08/17) erythromycin base (02/08/17) potassium iodide (02/08/17) Home Med List: Diltiazem HCl (Cardizem Cd) 180 MG CAP.ER.24H 1 CAP PO DAILY HTN (Reported) Hydrochlorothiazide 25 MG TABLET 1 TAB PO DAILY BLOOD PRESSURE (Reported) Insulin Aspart (Novolog) 100 UNIT/ML VIAL 12 UNITS SC TIDAC DM (Reported) Insulin Detemir (Levemir) 100 UNIT/ML VIAL 26 UNITS SC BID DM (Reported) Levothyroxine Sodium 75 MCG TABLET 1 TAB PO DAILY HYPOTHYROID (Reported) Linagliptin (Tradjenta) 5 MG TABLET 1 TAB PO DAILY DM (Reported) Liraglutide (Victoza 2-Juan) 0.6 MG/0.1 ML (18 MG/3 ML) PEN.INJCTR 1.2 MG SC DAILY DM (Reported) Meloxicam 15 MG TABLET 1 TAB PO DAILY PAIN (Reported) Metformin HCl 1,000 MG TABLET 1 TAB PO BID DM (Reported) Montelukast Sodium 10 MG TABLET 1 TAB PO DAILY COUGH (Reported) Current Medications: Current Medications Sig/[place] Start time Last Medication Dose Route Stop Time Status Admin Acetaminophen 650 MG .STK-MED ONE 02/09 0032 DC PO 02/09 0033 Acetaminophen 650 MG Q8P PRN 02/08 1715 AC 02/09 PO 0034 Acetaminophen 1,000 MG Q8P PRN 02/08 1715 AC IV Albuterol Sulfate 3 ML BID 02/08 2200 AC 02/09 INH 0924 Albuterol Sulfate 3 ML ONCE ONE 02/08 1245 DC 02/08 INH 02/08 1246 1258 Ceftazidime 0 .STK-MED ONE 02/08 1342 DC .ROUTE Ceftazidime 1,000 MG ONCE ONE 02/08 1330 DC 02/08 IV 02/08 1331 1340 Diltiazem HCl 180 MG DAILY 02/09 1000 AC 02/09 PO 1032 Heparin Sodium 5,000 UNIT Q8 02/08 2200 AC 02/09 (Porcine) SC 0601 Insulin Aspart 0 TIDAC 02/08 1700 AC 02/08 SC 1805 Insulin Detemir 26 UNITS BID 02/08 2200 AC 02/09 SC 1031 Ipratropium [place] 2.5 ML BID 02/08 2200 AC 02/09 INH 0924 Ipratropium [place] 2.5 ML ONCE ONE 02/08 1245 DC 02/08 INH 02/08 1246 1258 Levothyroxine Sodium 0.075 MG DAILY AC 02/09 0700 AC 02/09 PO 0601 Methylprednisolone 0 .STK-MED ONE 02/08 1306 DC .ROUTE Methylprednisolone 125 MG ONCE ONE 02/08 1245 DC 02/08 IV 02/08 1246 1310 Montelukast Sodium 10 MG DAILY 02/09 1000 AC 02/09 PO 1032 Morphine Sulfate 1 MG Q8P PRN 02/08 1715 AC IV Oseltamivir Phosphate 30 MG BID 03/15 1035 AC PO 02/13 1034 Oseltamivir Phosphate 75 MG BID 02/08 2200 CAN PO 02/12 2159 Oseltamivir Phosphate 30 MG 1800 02/08 1800 DC 02/08 PO 02/12 1759 2129 Ramelteon 8 MG ONCE ONE 02/08 2300 DC 02/08 PO 02/08 2301 2249 Sodium Chloride 1,000 ML Q10H 02/08 1645 AC 02/09 IV 0027 Sodium Chloride 1,000 ML BOLUS ONE 02/08 1330 DC 02/08 IV 02/08 1429 1340 Sodium Chloride 1,000 ML BOLUS ONE 02/08 1330 DC 02/08 IV 02/08 1429 1518 Sodium Chloride 1,000 ML BOLUS ONE 02/08 1330 DC 02/08 IV 02/08 1429 1620 Sodium Polystyrene 60 ML ONCE ONE 02/08 2015 DC 02/08 Sulfonate PO 02/08 Vancomycin HCl 1,500 MG ONCE ONE 02/08 1730 DC 02/08 Dextrose/Water 250 ML IV 02/08 1829 1957 Vancomycin HCl 1,000 MG ONCE ONE 02/08 1330 CAN Dextrose/Water 250 ML IV 02/08 1429 Past History Travel History Traveled to [place] past 21 day No Medical History Neurological: migraine EENT: NONE Cardiovascular: hypertension, hyperlipidemia Respiratory: COPD Gastrointestinal: NONE Hepatic: NONE Renal: NONE Musculoskeletal: osteoarthritis, CHRONIC PAIN Psychiatric: OPIOID ABUSE Endocrine: diabetes Blood Disorders: NONE Cancer(s): NONE Surgical History Surgical History: non-contributory Psychosocial History Where Do You Live? Extended [facility] Smoking Status: Unknown If Ever Smoked Exam & Diagnostic Data Last 24 Hrs of Vital Signs/I&O Vital Signs Date Time Temp Pulse Resp B/P Pulse O2 O2 Flow FiO2 Ox Delivery Rate 02/09 0925 97 Nasal 80% Cannula 02/09 0924 92 Nasal 70% Cannula 02/09 0800 96.7 93 20 148/90 99 02/09 0454 96.8 79 22 142/86 94 Nasal 75% Cannula 02/09 0358 97 Nasal 75% Cannula 02/09 0000 97 Nasal 70% Cannula 02/08 2051 95 Nasal 75% Cannula 02/08 1849 93 Nasal 75% Cannula 02/08 1843 91 Nasal 75% Cannula 02/08 1812 98.5 80 20 138/70 91 Nasal 75% Cannula 02/08 1744 Nasal 70% Cannula 02/08 1620 99.8 88 20 128/90 92 02/08 1534 91 Nasal 6.0L Cannula 02/08 1534 77 Nasal 4.0L Cannula 02/08 1430 97.5 88 24 132/84 91 Nasal 6.0L Cannula 02/08 1320 97 Part 100% ReBreather 02/08 1317 96 Non 10L ReBreather 02/08 1250 85 24 96 Non 10L ReBreather 02/08 1235 97.3 85 30 147/69 71 Room Air Intake & Output 02/09 1600 02/09 0800 02/09 0000 Intake Total 1040 2280 Output Total 1900 1800 Balance -860 480 Intake, IV 800 1800 Intake, Oral 240 480 Output, Urine 1900 1800 Patient 200 lb Weight Last 48 Hrs of Labs/[place]: Laboratory Tests 02/09/17 0630: Anion Gap 11, Estimated GFR 32 L, BUN/Creatinine Ratio 30.6 H, CBC w Diff NO MAN DIFF REQ, RBC 3.47 L, MCV 84.5, MCH 27.7, RDW 16.0 H, MPV 8.6, Gran % 77.8 H, Lymphocytes % 13.5 L, Monocytes % 8.3, Eosinophils % 0.2, Basophils % 0.2, Absolute Granulocytes 5.4, Absolute Lymphocytes 0.9 L, Absolute Monocytes 0.6, Absolute Eosinophils 0, Absolute Basophils 0, PUBS MCHC 32.8 L, Random Vancomycin 9.9 02/08/17 1936: pH 7.33 L, pCO2 44, pO2 89, HCO3 23, ABG O2 Sat (Measured) 95.0 L, P-50 (Temp Corrected) N, Carboxyhemoglobin 0.2 L, O2 Concentration % 75%, Temperature 98.5 , O2 Delivery Method HIGH FLOW N/C, Phlebotomy Draw Site RIGHT BRACHIAL 02/08/17 1800: Lactic Acid 1.0 02/08/17 1800: Anion Gap 10, Estimated GFR 15 L, BUN/Creatinine Ratio 19.0, Urinalysis LIGHT H, Urine Color YEL, Urine Clarity HAZY H, Urine pH 6.0, Ur Specific [place] 1.015, Urine Protein TRACE H, Urine Ketones NEG, Urine Nitrite POS H, Urine Bilirubin NEG, Urine Urobilinogen 0.2, Ur Leukocyte Esterase SMALL H, Ur Microscopic SEDIMENT EXAMINED, Urine RBC 1-3, Urine WBC 15-25 H, Ur Epithelial Cells FEW, Urine Bacteria MOD H, Urine Hemoglobin MOD H, Urine Glucose NEG 02/08/17 1520: Urine Color YEL, Urine Clarity HAZY H, Urine pH 5.5, Ur Specific [place] 1.025, Urine Protein TRACE H, Urine Ketones NEG, Urine Nitrite POS H, Urine Bilirubin NEG, Urine Urobilinogen 0.2, Ur Leukocyte Esterase MOD H, Ur Microscopic SEDIMENT EXAMINED, Urine RBC PACKD H, Urine WBC PACKD H, Ur Epithelial Cells MANY H, Urine Bacteria MANY H, Urine Hemoglobin MOD H, Urine Glucose NEG 02/08/17 1520: Urine Opiates Screen 1387.00, Methadone Screen 82, Barbiturate Screen < 60, Ur Phencyclidine Scrn < 6.00, Amphetamines Screen < 100, U Benzodiazepines Scrn < 85, Urine Cocaine Screen < 50, Urine Cannabis Screen < 5.00, Ur Random Creatinine 136.2, Ur Random Sodium 49, Ur Random Potassium 21.1, Fraction Sodium Excret 1.1 H 02/08/17 1255: pH 7.35, pCO2 44, pO2 140 H, HCO3 23, ABG O2 Sat (Measured) 98.0, P-50 (Temp Corrected) N, Carboxyhemoglobin 0.3 L, O2 Concentration % 100%, O2 Delivery Method NRB, Phlebotomy Draw Site RIGHT BRACHIAL 02/08/17 1253: TSH Cancelled, Free T4 Cancelled 02/08/17 1253: Anion Gap 14, Estimated GFR 11 L, BUN/Creatinine Ratio 16.1, Glucose 165 H, Lactic Acid 1.9, Calcium 8.3 L, Total Bilirubin 0.4, AST 66 H, ALT 43, Alkaline Phosphatase 69, Troponin I 0.02, Total Protein 6.7, Albumin 3.9, Globulin 2.8, Albumin/Globulin Ratio 1.4, TSH 1.660, Free T4 1.55, D-Dimer 635 H, CBC w Diff NO MAN DIFF REQ, RBC 3.60 L, MCV 84.9, MCH 27.6, RDW 16.2 H, MPV 8.8, Gran % 72.4, Lymphocytes % 17.3 L, Monocytes % 9.8 H, Eosinophils % 0.1, Basophils % 0.4, Absolute Granulocytes 5.5, Absolute Lymphocytes 1.3, Absolute Monocytes 0.7 H, Absolute Eosinophils 0, Absolute Basophils 0, PUBS MCHC 32.5 L 02/08/17 1235: Virus Culture Pending, Urine Color Cancelled, Urine Clarity Cancelled, Urine pH Cancelled, Ur Specific [place] Cancelled, Urine Protein Cancelled, Urine Ketones Cancelled, Urine Nitrite Cancelled, Urine Bilirubin Cancelled, Urine Urobilinogen Cancelled, Ur Leukocyte Esterase Cancelled, Ur Microscopic Cancelled, Urine Hemoglobin Cancelled, Urine Glucose Cancelled Microbiology 02/08 1334 NASOPHARYN: Influenza Virus A & B Rapid Smear - COMP INFLUENZA TYPE B Assessment/Plan Impression/Plan: Physical Exam General Appearance Alert, Oriented X3, not cooperative and refusing admission Skin No Rashes HEENT Atraumatic, PERRLA, dry mucous membrane Cardiovascular Regular Rate, Normal S1, Normal S2, No Murmurs Lungs decreased air entry over both lungs Abdomen Soft, No Tenderness Neurological Normal Speech Extremities right leg has a large scar because of previous nonhealing ulcer that was treated surgically IMPRESSION This is a lady with multiple medical issues which include significant COPD on 4- 5 L of nasal cannula, hypertension, hyperlipidemia, anxiety, diabetes, recent UTI now comes in with altered mental status with * Acute hypoxemic respiratory failure most likely related to worsening chronic lung disease with end-stage COPD with influenza B causing her to have influenza pneumonitis * Unlikely that she has heart failure * Pulmonary embolism may need to be ruled out as a chest x-ray was not too remarkable but patient is not too keen on getting any further testing * Significant acute renal failure with recent UTI probable dehydration which is improved significantly but rule out any obstructive uropathy * Hypertension and diabetes * Anxiety and depression * Previous lung nodules but patient had refused further workup before per patient but she does not want to go through to many testing RECOMMENDATION * Continue Tamiflu * Continue other medications * If patient is willing we'll get ultrasound of the entire abdomen and pelvis to rule out any other intra-abdominal pathology, and lower ext doppler * Patient would require a CT scan of the chest which we will decide later if she is willing to go through any testing * Hold on any steroids * [id number] nebulizer * Hold further fluids patient probably can drink more * Hold any antibacterial antibiotics for now * Follow electrolytes Overall prognosis is guarded Patient wishes to be DNR Consult Acknowledgment - Thank you for your consult request.
[2017-02-09 17:04] VITALS: BP 150/64
[2017-02-10] VITALS (7 sets, daily range): BP systolic 170–198; BP diastolic 70–100
[2017-02-10 08:23] LABS: ABSOLUTE BASOPHIL COUNT 0 /CUMM (0.0-0.2); ABSOLUTE EOSINOPHIL COUNT 0 /CUMM (0.0-0.7); ABSOLUTE GRANULOCYTE CT 6.4 /CUMM (1.4-6.5); ABSOLUTE LYMPH COUNT 1.5 /CUMM (1.2-3.4); ABSOLUTE MONOCYTE COUNT 0.7 /CUMM (0.10-0.60); BASOPHIL % 0.3 % (0.0-2.0); EOSINOPHIL % 0 % (0-5); GRANULOCYTE % 73.8 % (42.2-75.2); HEMATOCRIT 31.6 % (37-47); MEAN CORPUSCULAR HGB 27.6 PG (27.0-31.0); MEAN CORPUSCULAR HGB CONC 32.7 G/DL (33.0-37.0); MEAN CORPUSCULAR VOLUME 84.4 FL (81.0-99.0); MEAN PLATELET VOLUME 8.6 FL (7.4-10.4); PLATELET COUNT 197 /CUMM (130-400); RBC DISTRIBUTION WIDTH 16.3 % (11.5-14.5); RED BLOOD CELL CT 3.74 /CUMM (4.20-5.40); WHITE BLOOD CELL COUNT 8.6 /CUMM (4.8-10.8)
--- NOTE | 2017-02-10 08:29 | PN- Housestaff ---
MORENA CAREY 02/10/17 0828: Subjective Follow-up For: Altered mental status Complaints: no complaints Tele-Events Since Last Visit: Gen med hold. Subjective: She was comfortable in the am. No complaints. Vitals were stable, but the blood pressure was elevated this am. Review of Systems Constitutional: Reports: see HPI. Objective Last 24 Hrs of Vital Signs/I&O Vital Signs Date Time Temp Pulse Resp B/P Pulse O2 O2 Flow FiO2 Ox Delivery Rate 02/10 0503 96 Nasal 50% Cannula 02/10 0124 98 Nasal 50% Cannula 02/10 0000 Aerosol 50% Mask 02/09 1704 97.0 82 20 150/64 96 02/09 1600 Nasal 70% Cannula 02/09 1550 89 Nasal 7.0L Cannula 02/09 0925 97 Nasal 80% Cannula 02/09 0924 92 Nasal 70% Cannula Intake & Output 02/10 1600 02/10 0800 02/10 0000 Intake Total 720 Output Total 2700 Balance -1980 Intake, Oral 720 Number 1 Bowel Movements Output, Urine 2700 Physical Exam General Appearance: No Acute Distress Other Physical Findings: General Exam: AAOx3, No acute distress, Skin: No rashes, no breakdown HEENT: PERRLA, EOMI Neck: Supple, No JVD No cervical lymphadenopathy CVS: Reg Rate, Normal S1,S2, No MGR Resp: Normal air entry, ronchi B/L Abdomen: Soft, No tenderness, Normal Bowel Sounds Neuro: Normal Speech, Strength 5/5 b/l x 4 extremities, Sensation intact, CN III -XII NL, Reflexes 2+ Extremities: No cyanosis, pedal edema Current Medications: Current Medications Sig/[place] Start time Last Medication Dose Route Stop Time Status Admin Acetaminophen 650 MG .STK-MED ONE 02/10 2108 DC PO 02/09 2109 Acetaminophen 650 MG Q8P PRN 02/08 1715 AC 02/09 PO 211 Acetaminophen 1,000 MG Q8P PRN 02/08 171 AC IV Albuterol Sulfate 3 ML EVERY 4 HRS/AWAKE 02/10 2000 AC 02/09 INH 2044 Albuterol Sulfate 3 ML BID 02/08 220 DC 02/09 INH 0924 Diltiazem HCl 180 MG DAILY 02/09 1000 AC 02/09 PO 1032 Heparin Sodium 5,000 UNIT Q8 02/08 2200 AC 02/10 (Porcine) SC 0600 Insulin Aspart 0 TIDAC 02/08 1700 AC 02/09 SC 1716 Insulin Detemir 26 UNITS BID 02/08 2200 AC 02/09 SC 2113 Ipratropium [place] 2.5 ML EVERY 4 HRS/AWAKE 02/09 2000 AC 02/09 INH 2045 Ipratropium [place] 2.5 ML BID 02/08 2200 DC 02/09 INH 0924 Levothyroxine Sodium 0.075 MG DAILY AC 02/09 0700 AC 02/10 PO 0651 Montelukast Sodium 10 MG DAILY 02/09 1000 AC 02/09 PO 1032 Morphine Sulfate 1 MG Q8P PRN 02/08 1715 AC IV Oseltamivir Phosphate 30 MG BID 02/09 1035 AC 02/09 PO 02/13 1034 2113 Oseltamivir Phosphate 30 MG 1800 02/08 1800 DC 02/08 PO 02/12 1759 2129 Ramelteon 8 MG ONCE ONE 02/09 211 DC 02/09 PO 02/09 211 2113 Sodium Chloride 1,000 ML Q10H 02/08 1645 DC 02/09 IV 1156 Last 24 Hrs of Lab/[place] Results Last 24 Hrs of Labs/Mics: Laboratory Tests 02/10/17 0634: Sodium Pending, Potassium Pending, Chloride Pending, Carbon Dioxide Pending, Anion Gap Pending, BUN Pending, Creatinine Pending, BUN/Creatinine Ratio Pending , CBC w Diff Pending, WBC Pending, RBC Pending, Hgb Pending, Hct Pending, MCV Pending, MCH Pending, RDW Pending, Plt Count Pending, MPV Pending, PUBS MCHC Pending Assessment/Plan Assessment: Mrs. Lynn is a 76-year-old woman with a history of COPD (severe-3.5 L home oxygen), hypertension, diabetes is being evaluated and treated for shortness of breath, hypoxemia, cough and altered mental status. Admission diagnosis: #1 influenza #2 urinary tract infection #3 pneumonia Below is the problem list and plan: #1 shortness of breath-acute hypoxic respiratory failure. Currently requiring higher amount of oxygen to high flow nasal cannula. Reason-likely viral infection. Pulmonary embolism is not completely ruled out. Patient declining all imaging. Continue to taper oxygen as tolerated. No steroids, in view of influenza B positive. Continue Tamiflu. Serum creatinine improved in the last 24 hours. Dose of Tamiflu 3 adjusted. TRC. Inhalers as needed. #2 acute kidney injury-serum creatinine improving. Serum creatinine 0.9. Potassium 4.2. #3 altered mental status-patient aggressive at times. Alert and oriented 3. #4 COPD-continue inhalers. #5 HTN- Anti-hypertensives have been resumed. Started on hydrochlorthiazide. W10 information from [facility] was inaccurate. As per the PCP(on file) Dr. Sousa, the no doesnt take care of the pt, and is unsure of the reason for the pt to be not be on losartan. Talked to the nurse from [facility], and started Losartan 100mg po daily. Given hydralazine x2 iv. continue to monitor closely. #6 diabetes-blood sugars 174, 176, 134. Continue long-acting and short-acting insulin. Restart oral medications at the time of discharge. Problem List: 1. UTI (urinary tract infection) 2. Acute kidney failure 3. Respiratory failure 4. COPD (chronic obstructive pulmonary disease) Pain Ratin Pain Location: Lower extremities Pain Goal: Pain 4 or less Pain Plan: Tylenol when necessary Tomorrow's Labs & Rationales: Basic electrolyte panel-the patient had elevated serum creatinine and potassium. CHRISTOPHER MORATAYA MD 02/10/17 1115: Attending MD Review Statement Attending Statement Attending MD Statement: examined this patient, discuss w/resident/PA/[employer]ISER, agreed w/resident/PA/[employer]PRAISER, reviewed EMR data (avail) Attending Assessment/Plan: 76F PMH COPD, HTN, HLD, T2DM admitted for shortness of breath and confusion in the setting of Influenza B pneumonia, JAIRO, and Enterococcal UTI. Patient still requiring high flow oxygen and reports intermittent shortness of breath, though she feels adequate right now. No other complaints other than not wanting to be in the hospital. Had been treated with Vancomycin for Enterococcus but no signs of UTI at this time. Cultures thus far have been negative. 1. Influenza B pneumonia 2. Acute on chronic hypoxemic respiratory failure 3. JAIRO 4. Enterococcal UTI Plan - No telemetry monitoring, may go to [facility] when bed is available - Titrate down oyxgen as tolerated - Continue nebulizer treatment - Continue Tamiflu - Pulmonary consult - Continue home medications - DVT PPx
--- NOTE | 2017-02-10 12:28 | PN- Pulmonary ---
Subjective HPI/Critical Care Issues: Little more cooperative today less anxious Still has a hypertension Less anxious Does not wish to go through any invasive workup as she thinks they're too many things going on Review of symptoms otherwise unreliable Oxygenation seems to have improved Objective Current Medications: Current Medications Sig/[place] Start time Last Medication Dose Route Stop Time Status Admin Acetaminophen 650 MG .STK-MED ONE 02/10 2108 DC PO 02/09 210 Acetaminophen 650 MG Q8P PRN 02/08 1715 AC 02/09 PO 211 Acetaminophen 1,000 MG Q8P PRN 02/08 1715 AC IV Albuterol Sulfate 3 ML EVERY 4 HRS/AWAKE 02/10 2000 AC 02/10 INH 1130 Albuterol Sulfate 3 ML BID 02/08 2200 DC 02/09 INH 0924 Diltiazem HCl 180 MG DAILY 02/09 1000 AC 02/10 PO 0913 Heparin Sodium 5,000 UNIT Q8 02/08 2200 AC 02/10 (Porcine) SC 0600 Hydralazine HCl 5 MG ONCE ONE 02/10 1015 DC 02/10 IV 02/10 1016 1015 Hydrochlorothiazide 25 MG DAILY 02/10 1000 AC 02/10 PO 1015 Insulin Aspart 0 TIDAC 02/08 1700 AC 02/09 SC 1716 Insulin Detemir 26 UNITS BID 02/08 2200 AC 02/10 SC 1015 Ipratropium [place] 2.5 ML EVERY 4 HRS/AWAKE 02/10 2000 AC 02/10 INH 1130 Ipratropium [place] 2.5 ML BID 02/08 2200 DC 02/09 INH 0924 Levothyroxine Sodium 0.075 MG DAILY AC 02/09 0700 AC 02/10 PO 0651 Montelukast Sodium 10 MG DAILY 02/09 1000 AC 02/10 PO 0915 Morphine Sulfate 1 MG Q8P PRN 02/08 1715 AC IV Oseltamivir Phosphate 30 MG BID 02/09 1035 AC 02/10 PO 02/13 1034 0915 Ramelteon 8 MG ONCE ONE 02/09 2115 DC 02/09 PO 02/10 2116 2113 Sodium Chloride 1,000 ML Q10H 02/08 1645 DC 02/09 IV 1156 Laboratory Tests 02/10 02/09 0634 0630 Chemistry Sodium (137 - 145 mmol/L) 140 139 Potassium (3.5 - 5.1 mmol/L) 4.2 5.3 H Chloride (98 - 107 mmol/L) 100 100 Carbon Dioxide (22 - 30 mmol/L) 30 28 Anion Gap (5 - 16) 10 11 BUN (7 - 17 mg/dL) 29 H 49 H Creatinine (0.5 - 1.0 mg/dL) 0.9 1.6 H Estimated GFR (>60 ml/min) > 60 32 L BUN/Creatinine Ratio (7 - 25 %) 32.2 H 30.6 H Hematology CBC w Diff NO MAN DIFF REQ NO MAN DIFF REQ WBC (4.8 - 10.8 /CUMM) 8.6 6.9 RBC (4.20 - 5.40 /CUMM) 3.74 L 3.47 L Hgb (12.0 - 16.0 G/DL) 10.3 L 9.6 L Hct (37 - 47 %) 31.6 L 29.3 L MCV (81.0 - 99.0 FL) 84.4 84.5 MCH (27.0 - 31.0 PG) 27.6 27.7 RDW (11.5 - 14.5 %) 16.3 H 16.0 H Plt Count (130 - 400 /CUMM) 197 185 MPV (7.4 - 10.4 FL) 8.6 8.6 Gran % (42.2 - 75.2 %) 73.8 77.8 H Lymphocytes % (20.5 - 51.1 %) 17.5 L 13.5 L Monocytes % (1.7 - 9.3 %) 8.4 8.3 Eosinophils % (0 - 5 %) 0 0.2 Basophils % (0.0 - 2.0 %) 0.3 0.2 Absolute Granulocytes (1.4 - 6.5 /CUMM) 6.4 5.4 Absolute Lymphocytes (1.2 - 3.4 /CUMM) 1.5 0.9 L Absolute Monocytes (0.10 - 0.60 /CUMM) 0.7 H 0.6 Absolute Eosinophils (0.0 - 0.7 /CUMM) 0 0 Absolute Basophils (0.0 - 0.2 /CUMM) 0 0 PUBS MCHC (33.0 - 37.0 G/DL) 32.7 L 32.8 L Toxicology Random Vancomycin (ug/ml) 9.9 02/08 02/08 1936 1800 Blood Gas pH (7.35 - 7.45 PH) 7.33 L pCO2 (35 - 45 TORR) 44 pO2 (80 - 100 TORR) 89 HCO3 (21 - 28 MEQ/L) 23 ABG O2 Sat (Measured) (>96.0 %) 95.0 L P-50 (Temp Corrected) N Carboxyhemoglobin (1.5 - 5.0 %) 0.2 L O2 Concentration % 75% Temperature (97.0 - 100.0 FARH) 98.5 O2 Delivery Method HIGH FLOW N/C Chemistry Lactic Acid (0.7 - 2.1 mmol/L) 1.0 Miscellaneous Phlebotomy Draw Site RIGHT BRACHIAL 02/08 02/08 1800 1520 Chemistry Sodium (137 - 145 mmol/L) 134 L Potassium (3.5 - 5.1 mmol/L) 5.4 H Chloride (98 - 107 mmol/L) 97 L Carbon Dioxide (22 - 30 mmol/L) 28 Anion Gap (5 - 16) 10 BUN (7 - 17 mg/dL) 59 H Creatinine (0.5 - 1.0 mg/dL) 3.1 H Estimated GFR (>60 ml/min) 15 L BUN/Creatinine Ratio (7 - 25 %) 19.0 Urines Urinalysis LIGHT H Urine Color (YEL,AMB,STR) YEL YEL Urine Clarity (CLEAR) HAZY H HAZY H Urine pH (5.0 - 8.0) 6.0 5.5 Ur Specific [place] (1.001 - 1.035) 1.015 1.025 Urine Protein (NEG,<30 MG/DL) TRACE H TRACE H Urine Ketones (NEG) NEG NEG Urine Nitrite (NEG) POS H POS H Urine Bilirubin (NEG) NEG NEG Urine Urobilinogen (0.1 - 1.0 EU/dl) 0.2 0.2 Ur Leukocyte Esterase (NEG) SMALL H MOD H Ur Microscopic SEDIMENT EXAMINED SEDIMENT EXAMINED Urine RBC (0 - 5 /HPF) 1-3 PACKD H Urine WBC (0 - 2 /HPF) 15-25 H PACKD H Ur Epithelial Cells (NONE,FEW) FEW MANY H Urine Bacteria (NEG/NONE) MOD H MANY H Urine Hemoglobin (NEG) MOD H MOD H Urine Glucose (N MG/DL) NEG NEG 02/08 02/08 02/08 1520 1255 1253 Blood Gas pH (7.35 - 7.45 PH) 7.35 pCO2 (35 - 45 TORR) 44 pO2 (80 - 100 TORR) 140 H HCO3 (21 - 28 MEQ/L) 23 ABG O2 Sat (Measured) (>96.0 %) 98.0 P-50 (Temp Corrected) N Carboxyhemoglobin (1.5 - 5.0 %) 0.3 L O2 Concentration % 100% O2 Delivery Method NRB Chemistry TSH Cancelled Free T4 Cancelled Miscellaneous Phlebotomy Draw Site RIGHT BRACHIAL Toxicology Urine Opiates Screen (>2000 NG/ML) 1387.00 Methadone Screen (>300 NG/ML) 82 Barbiturate Screen (>200 NG/ML) < 60 Ur Phencyclidine Scrn (>25 NG/ML) < 6.00 Amphetamines Screen (>1000 NG/ML) < 100 U Benzodiazepines Scrn (>200 NG/ML) < 85 Urine Cocaine Screen (>300 NG/ML) < 50 Urine Cannabis Screen (>50 NG/ML) < 5.00 Urines Ur Random Creatinine (mg/dL) 136.2 Ur Random Sodium (30 - 90 mmol/L) 49 Ur Random Potassium (mmol/L) 21.1 Fraction Sodium Excret (<1% %) 1.1 H 02/08 02/08 1253 1235 Chemistry Sodium (137 - 145 mmol/L) 135 L Potassium (3.5 - 5.1 mmol/L) 5.3 H Chloride (98 - 107 mmol/L) 93 L Carbon Dioxide (22 - 30 mmol/L) 28 Anion Gap (5 - 16) 14 BUN (7 - 17 mg/dL) 66 H Creatinine (0.5 - 1.0 mg/dL) 4.1 H Estimated GFR (>60 ml/min) 11 L BUN/Creatinine Ratio (7 - 25 %) 16.1 Glucose (65 - 99 mg/dL) 165 H Lactic Acid (0.7 - 2.1 mmol/L) 1.9 Calcium (8.4 - 10.2 mg/dL) 8.3 L Total Bilirubin (0.2 - 1.3 mg/dL) 0.4 AST (14 - 36 U/L) 66 H ALT (9 - 52 U/L) 43 Alkaline Phosphatase (<127 U/L) 69 Troponin I (< 0.11 ng/ml) 0.02 Total Protein (6.3 - 8.2 g/dL) 6.7 Albumin (3.5 - 5.0 g/dL) 3.9 Globulin (1.9 - 4.2 gm/dL) 2.8 Albumin/Globulin Ratio (1.1 - 2.2 %) 1.4 TSH (0.270 - 4.200 uIU/mL) 1.660 Free T4 (0.78 - 2.44 ng/dL) 1.55 Coagulation D-Dimer (70 - 232 ng/ml) 635 H Hematology CBC w Diff NO MAN DIFF REQ WBC (4.8 - 10.8 /CUMM) 7.6 RBC (4.20 - 5.40 /CUMM) 3.60 L Hgb (12.0 - 16.0 G/DL) 9.9 L Hct (37 - 47 %) 30.6 L MCV (81.0 - 99.0 FL) 84.9 MCH (27.0 - 31.0 PG) 27.6 RDW (11.5 - 14.5 %) 16.2 H Plt Count (130 - 400 /CUMM) 214 MPV (7.4 - 10.4 FL) 8.8 Gran % (42.2 - 75.2 %) 72.4 Lymphocytes % (20.5 - 51.1 %) 17.3 L Monocytes % (1.7 - 9.3 %) 9.8 H Eosinophils % (0 - 5 %) 0.1 Basophils % (0.0 - 2.0 %) 0.4 Absolute Granulocytes (1.4 - 6.5 /CUMM) 5.5 Absolute Lymphocytes (1.2 - 3.4 /CUMM) 1.3 Absolute Monocytes (0.10 - 0.60 /CUMM) 0.7 H Absolute Eosinophils (0.0 - 0.7 /CUMM) 0 Absolute Basophils (0.0 - 0.2 /CUMM) 0 PUBS MCHC (33.0 - 37.0 G/DL) 32.5 L Serology Virus Culture Pending Urines Urine Color Cancelled Urine Clarity Cancelled Urine pH Cancelled Ur Specific [place] Cancelled Urine Protein Cancelled Urine Ketones Cancelled Urine Nitrite Cancelled Urine Bilirubin Cancelled Urine Urobilinogen Cancelled Ur Leukocyte Esterase Cancelled Ur Microscopic Cancelled Urine Hemoglobin Cancelled Urine Glucose Cancelled Microbiology Date/Time Procedure - Status Source Growth 02/08 1800 Urine Culture - RES URINE ROUT GRAM NEGATIVE RODS 02/08 1335 Blood Culture - RES BLOOD 02/08 1334 Influenza Virus A & B Rapid Smear - COMP NASOPHARYN INFLUENZA TYPE B 02/08 1253 Blood Culture - RES BLOOD 02/08 1235 Urine Culture - CAN URINE ROUT Cancelled: Cancelled via OE: Per MD Decision Vital Signs & I&O Last 24 Hrs of Vitals and I&O: Vital Signs Date Time Temp Pulse Resp B/P Pulse O2 O2 Flow FiO2 Ox Delivery Rate 02/10 1140 190/84 02/10 1133 93 Nasal 6.0L Cannula 02/10 1015 200/102 02/10 0910 196/70 02/10 0850 94 Nasal 50% Cannula 02/10 0835 97.6 73 20 198/100 94 Nasal 2.0L Cannula 02/10 0503 96 Nasal 50% Cannula 02/10 0124 98 Nasal 50% Cannula 02/10 0000 Aerosol 50% Mask 02/09 1704 97.0 82 20 150/64 96 02/09 1600 Nasal 70% Cannula 02/09 1550 89 Nasal 7.0L Cannula Intake & Output 02/10 1600 02/10 0800 02/10 0000 Intake Total 200 720 Output Total 1100 2700 Balance -900 -1980 Intake, Oral 200 720 Number 1 1 Bowel Movements Output, Urine 1100 2700 Impression/Plan Impression/Plan Impression/Plan: Physical Exam General Appearance Alert, Oriented X3, not cooperative and refusing admission Skin No Rashes HEENT Atraumatic, PERRLA, dry mucous membrane Cardiovascular Regular Rate, Normal S1, Normal S2, No Murmurs Lungs decreased air entry over both lungs Abdomen Soft, No Tenderness Neurological Normal Speech Extremities right leg has a large scar because of previous nonhealing ulcer that was treated surgically IMPRESSION This is a lady with multiple medical issues which include significant COPD on 4- 5 L of nasal cannula, hypertension, hyperlipidemia, anxiety, diabetes, recent UTI now comes in with altered mental status with * Slowly improving Acute hypoxemic respiratory failure most likely related to worsening chronic lung disease with end-stage COPD with influenza B causing her to have influenza pneumonitis * Unlikely that she has heart failure * Pulmonary embolism may need to be ruled out as a chest x-ray was not too remarkable but patient is not too keen on getting any further testing * Significant acute renal failure with recent UTI probable dehydration which is improved significantly but rule out any obstructive uropathy * Hypertension and diabetes * Anxiety and depression * Previous lung nodules but patient had refused further workup before per patient but she does not want to go through to many testing RECOMMENDATION * Continue Tamiflu * Continue other medications * If patient is willing we'll get ultrasound of the entire abdomen and pelvis to rule out any other intra-abdominal pathology, and lower ext doppler * Patient would require a CT scan of the chest which we will decide later if she is willing to go through any testing * Hold on any steroids * [id number] nebulizer * Hold further fluids patient probably can drink more * Consider treating UTI and patient might be willing to get ultrasound of the abdomen and lower extremity. * Follow electrolytes Overall prognosis is guarded Patient wishes to be DNR
--- NOTE | 2017-02-10 13:03 | Discharge Summary ---
Visit Information Visit Dates Admission Date: 02/08/17 Discharge Date: 02/15/17 Hospital Course Course Attending Physician: CHRISTOPHER MORATAYA MD Primary Care Physician: ROB HICKS MD Consulting Request: 1 Consulting Specialty: Pulmonary Disease Consulting Physician: Freddie Ritter MD Reason for Consult: COPD Consulting Request: 2 Consulting Specialty: Nephrology Consulting Physician: Dr. Meléndez Reason for Consult: acute kidney injury Consulting Request: 3 Consulting Specialty: Cardiology Consulting Physician: Dr. Ríos Reason for Consult: hypertension Hospital Course: Mrs. Lynn, 76-year-old female with significant past medical history of hypertension, diabetes, hyperlipidemia COPD [on 3.5 L of oxygen at home via nasal cannula, who presented to the hospital emergency department from an assisted living facility for altered mental status, and hypoxemia. Of note, since approximately 1 week prior to admission, the patient was noted to have a fever, and some altered mentation along with respiratory desaturation. Vitals on admissions revealed a temperature 97.3, pulse rate 84, respiratory rate 30, blood pressure 147/69, saturating 71% on room air. She was placed on nonrebreather oxygen supplementation and subsequently improved to 92%. Problems managed during her hospital stay Dyspnea * Patient does have a significant history of COPD and is on home O2. Previous records indicate that she also has pulmonary hypertension. During the initial part of the hospital stay, she required higher supplemental oxygen(high flow NC) , was tapered to nasal cannula 3 L. Although pulmonary embolism was in the differential, no further workup was done as the patient declined other radiological tests. * Chest x-ray revealed bibasilar atelectasis and right upper lobe linear atelectasis without pulmonary edema. She was also found to be influenza positive and started on Tamiflu subsequently. Acute kidney injury * B1/creatinine on admission 66/4.1. She did appear clinically dehydrated. * She was hydrated with intravenous fluid resuscitation, and subsequently her BUN/creatinine improved to normal levels, 29/0.9. After restarting losartan and hydrochlorothiazide, kidney function worsened. Upon discontinuing losartan and hydrochlorothiazide, kidney function improved. Advised to follow up on restarting these medications(especially losartan at 25mg po daily) by the primary care physician at a later date when kidney function is normal. Hypertension * Initially the patient's blood pressure was slightly elevated, 147/69 however this trended downwards to the 120s-130s systolically. * Unfortunately, her blood pressure continued to rise, for which she was acutely treated with hydralazine intravenously and started on hydrochlorothiazide 25 mg daily, as well as losartan 100 mg daily given her diabetes, which were later discontinued upon worsening kidney function. * Her blood pressure remained refractory and she was also started on labetolol 100mg BID, which was titrated up to 200mg BID, along with amlodipine 10 mg by mouth at bedtime, hydralazine 100 mg by mouth twice a day. * Renal ultrasound was inconclusive, and hence renal artery stenosis was not completely ruled out. Although CTA was considered, but was deferred for a later date when kidney function is resolved. Positive urine culture * Urinalysis on admission was positive for nitrite and moderate leukocyte esterase. White blood cells were also noted however many epithelial cells are also noted. * Urine culture from February 04 did grow enterococcus, and she was treated w 1 dose of vancomycin IV in the ED, however the patient denied any urinary symptoms and ABx were not continued. * Repeat UCx 12/11/16 grew E. coli, and considering the pattern of sensitivities, she was to be treated with fosfomycin 3gm q48h x 3 times. Since, urinary obstruction likely from a neurogenic bladder was in the differential, it was thought prudent to treat the pt w/ an antibiotic. Allergies: Coded Allergies: Penicillins (02/08/17) Sulfa (Sulfonamide Antibiotics) (02/08/17) amoxicillin (02/08/17) crab (02/08/17) erythromycin base (02/08/17) potassium iodide (02/08/17) Pertinent Lab Results: RAD - XRY-PORTABLE CHEST XRAY 02/08/17-1235 Limited evaluation. Small linear opacity right upper lobe. Mildly enlarged cardiac silhouette. US - US-ABD/PELV ORGAN DOPPLER; US-RENAL/KIDNEY 02/13/17-1101 Right renal stone. 1.6 x 1.8 x 1 cm peripheral echogenic area in the upper pole of the right kidney. Differential would include a parenchymal junctional defect and partial volume averaging with the perinephric fat and possible angiomyolipoma. Follow-up CT or MR recommended. Small right renal stone. Normal left kidney. Renal Doppler exam nondiagnostic as the patient could not hold her breath and the renal arteries and aorta were not well visualized. CARD - ECHOCARDIOGRAM 02/13/17 1. Normal EF of 65% with impaired LV relaxation. 2. Mild left ventricular hypertrophy. 3. Mild aortic regurgitation. 4. Trace tricuspid regurgitation. URINE CULTURE Final 02/11/17-913 Approx. 40,000 colonies per ml of: ESCHERICHIA COLI 1. ESCHERICHIA COLI RX AB ------ -- AMPICILLIN R CEFAZOLIN R AMOXICILLIN/CLAVULINIC ACID R AMPICILLIN/SULBACTAM I CEFOXITIN R CEFTAZIDIME S CIPROFLOXACIN R GENTAMICIN S MEROPENEM S NITROFURANTOIN S TRIMETHOPRIM/SULFAMETHOXAZOLE R Disposition Summary Disposition Principal Diagnosis: COPD Additional Diagnosis: Hypertension Discharge Disposition: SNF Discharge Instructions General Discharge Information Code Status: Do Not Resucitate/Intubat Patient's Diet: Low salt Patient's Activity: As tolerated Follow-Up Instructions/Appts: Please follow up with Dr. Hicks in 1-2 weeks of discharge. Please follow up with Dr. Ritter to establish care as Medications at Discharge Discharge Medications: Stop taking the following medications: Hydrochlorothiazide (Hydrochlorothiazide) 25 MG TABLET ORAL DAILY Meloxicam (Meloxicam) 15 MG TABLET ORAL DAILY Diltiazem HCl (Cardizem Cd) 180 MG CAP.ER.24H ORAL DAILY Losartan Potassium (Losartan Potassium) 100 MG TABLET ORAL DAILY Qty = 30 Continue taking these medications: Levothyroxine Sodium (Levothyroxine Sodium) 75 MCG TABLET 1 Tablet ORAL DAILY Comments: Last Taken: 02/15/17 Time: 0650 Linagliptin (Tradjenta) 5 MG TABLET 1 Tablet ORAL DAILY Comments: Last Taken: NOT GIVEN IN HOSPITAL Time: Metformin HCl (Metformin HCl) 1,000 MG TABLET 1 Tablet ORAL TWICE DAILY Comments: Last Taken: NOT GIVEN IN HOSPITAL Time: Liraglutide (Victoza 2-Juan) 0.6 MG/0.1 ML (18 MG/3 ML) PEN.INJCTR 1.2 Milligram Inject into fatty tissue DAILY Comments: Last Taken: NOT GIVEN IN HOSPITAL Time: Insulin Aspart (Novolog) 100 UNIT/ML VIAL 12 Units Inject into fatty tissue 3 TIMES DAILY BEFORE MEALS Comments: Last Taken: 02/15/17 Time: 1155 (RECEIVED 1 UNIT PER SS) Insulin Detemir (Levemir) 100 UNIT/ML VIAL 26 Units Inject into fatty tissue TWICE DAILY Comments: Last Taken: 02/15/17 Time: 0935 Montelukast Sodium (Montelukast Sodium) 10 MG TABLET 1 Tablet ORAL DAILY Comments: Last Taken: 02/15/17 Time: 0850 Start taking the following new medications: Hydralazine HCl (Hydralazine HCl) 100 MG TABLET 1 Tablet ORAL TWICE DAILY Qty = 90 No Refills Comments: Last Taken: 02/15/17 Time: 0850 Labetalol HCl (Labetalol HCl) 200 MG TABLET 1 Tablet ORAL TWICE DAILY Qty = 60 No Refills Comments: Last Taken: 02/15/17 Time: 0850 Amlodipine Besylate (Norvasc) 10 MG TABLET 1 Tablet ORAL 2000 Qty = 30 Refills = 1 Comments: Last Taken: NOT GIVEN IN HOSPITAL Time: Ipratropium [place] (Ipratropium [place]) 0.2 MG/ML (0.02 %) SOLUTION 1 Vial Inhale Solution 4 TIMES A DAY as needed for COPD Qty = 300 No Refills Comments: Last Taken: 02/14/17 Time: 1110 Fosfomycin Tromethamine (Monurol) 3 GRAM PACKET 1 Packet ORAL Q48H Qty = 3 No Refills Comments: Last Taken: NOT GIVEN IN HOSPITAL Time: Copies To: KURT ARAGON,JORDIN PETER MD,DARLYN Gardner MD Review Statement Documenting Attending: CHRISTOPHER MORATAYA MD
[2017-02-11] VITALS (8 sets, daily range): BP systolic 149–210; BP diastolic 60–102
--- NOTE | 2017-02-11 05:48 | PN- Housestaff ---
MORENA CAREY 02/11/17 0547: Subjective Follow-up For: - AMS sec to UTI. Subjective: Pt was comforable. No complaints. Bp remained elevated despite addition of losartan. Added labetolol with good control of blood pressure. Remained afebrile. Currently on 5L oxygen w/ good oxygen saturation. Review of Systems Constitutional: Reports: see HPI. Objective Last 24 Hrs of Vital Signs/I&O Vital Signs Date Time Temp Pulse Resp B/P Pulse O2 O2 Flow FiO2 Ox Delivery Rate 02/11 0056 97.2 68 24 176/86 93 Nasal 6.0L Cannula 02/11 0000 Nasal 5.0L Cannula 02/10 1939 184/80 02/10 1721 78 190/80 02/10 1720 65 20 196/80 90 Nasal 6.0L Cannula 02/10 1640 94 Nasal 6.0L Cannula 02/10 1600 90 Nasal 6.0L Cannula 02/10 1435 170/74 02/10 1303 182/78 02/10 1241 182/78 02/10 1140 190/84 02/10 1133 93 Nasal 6.0L Cannula 02/10 1015 200/102 02/10 0910 196/70 02/10 0850 94 Nasal 50% Cannula 02/10 0835 97.6 73 20 198/100 94 Nasal 2.0L Cannula 02/10 0800 95 Nasal 7.0L Cannula Intake & Output 02/11 0800 02/11 0000 02/10 1600 Intake Total 420 300 Output Total 1500 1000 Balance -1080 -700 Intake, IV 20 Intake, Oral 400 300 Number 1 Bowel Movements Output, Urine 1500 1000 Physical Exam General Appearance: No Acute Distress Skin: No Breakdown HEENT: PERRLA, EOMI Neck: No JVD, No thryomegaly Lymphatic: Cervical nl Cardiovascular: Normal S1, Normal S2 Lungs: cathie ronchi Abdomen: Soft, No Tenderness Neurological: Normal Speech, Strength at 5/5 X4 Ext Extremities: No Cyanosis, No Edema Vascular: Pulses Symmetrical Current Medications: Current Medications Sig/[place] Start time Last Medication Dose Route Stop Time Status Admin Acetaminophen 650 MG .STK-MED ONE 02/10 173 DC PO 02/10 173 Acetaminophen 650 MG Q8P PRN 02/08 171 AC 02/11 PO 0112 Acetaminophen 1,000 MG Q8P PRN 03/14 1715 AC IV Albuterol Sulfate 3 ML EVERY 4 HRS/AWAKE 02/10 2000 AC 02/10 INH 2138 Diltiazem HCl 180 MG DAILY 02/09 1000 AC 02/10 PO 0913 Heparin Sodium 5,000 UNIT Q8 02/08 2200 AC 02/10 (Porcine) SC 2146 Hydralazine HCl 5 MG ONCE ONE 02/10 1300 DC 02/10 IV 02/10 1301 1303 Hydralazine HCl 5 MG ONCE ONE 02/10 1015 DC 02/10 IV 02/10 1016 1015 Hydrochlorothiazide 25 MG DAILY 02/10 1000 AC 02/10 PO 1015 Insulin Aspart 0 TIDAC 02/08 1700 AC 02/10 SC 1731 Insulin Detemir 26 UNITS BID 02/08 2200 AC 02/10 SC 2145 Ipratropium [place] 2.5 ML EVERY 4 HRS/AWAKE 02/10 2000 AC 02/10 INH 2138 Levothyroxine Sodium 0.075 MG DAILY AC 02/09 0700 AC 02/10 PO 0651 Losartan Potassium 100 MG DAILY 02/10 1545 AC 02/10 PO 1721 Melatonin 5 MG AT BEDTIME 02/11 2200 AC PO Montelukast Sodium 10 MG DAILY 02/09 1000 AC 02/10 PO 0915 Morphine Sulfate 1 MG Q8P PRN 02/08 1715 AC IV Ondansetron HCl 4 MG ONCE ONE 02/10 213 DC 02/10 IV 02/10 2131 213 Oseltamivir Phosphate 30 MG BID 02/09 1035 AC 02/10 PO 02/13 1034 2341 Oxycodone/ 1 TAB ONCE ONE 02/10 1915 [place] 02/10 Acetaminophen PO 02/10 Patient Medication 1 ED .STK-MED ONE 02/10 1420 [place] Teaching ED 02/10 1421 Ramelteon 8 MG ONCE ONE 02/10 1915 [place] 02/10 PO 02/10 Last 24 Hrs of Lab/[place] Results Last 24 Hrs of Labs/Mics: Laboratory Tests 02/10/17 0634: Anion Gap 10, Estimated GFR > 60, BUN/Creatinine Ratio 32.2 H, CBC w Diff NO MAN DIFF REQ, RBC 3.74 L, MCV 84.4, MCH 27.6, RDW 16.3 H, MPV 8.6, Gran % 73.8 , Lymphocytes % 17.5 L, Monocytes % 8.4, Eosinophils % 0, Basophils % 0.3, Absolute Granulocytes 6.4, Absolute Lymphocytes 1.5, Absolute Monocytes 0.7 H, Absolute Eosinophils 0, Absolute Basophils 0, PUBS MCHC 32.7 L Assessment/Plan Assessment: Mrs. Lynn is a 76-year-old woman with a history of COPD (severe-3.5 L home oxygen), hypertension, diabetes is being evaluated and treated for shortness of breath, hypoxemia, cough and altered mental status. Admission diagnosis: #1 influenza #2 urinary tract infection #3 pneumonia Below is the problem list and plan: #1 shortness of breath-acute hypoxic respiratory failure. Currently requiring higher amount of oxygen to high flow nasal cannula. Reason-likely viral infection. Pulmonary embolism is not completely ruled out. Patient declining all imaging. Continue to taper oxygen as tolerated. No steroids, in view of influenza B positive. Continue Tamiflu. Serum creatinine improved in the last 24 hours. Dose of Tamiflu dose adjusted. TRC. Inhalers as needed. #2 acute kidney injury-serum creatinine and potassium improving. #3 altered mental status-patient aggressive at times. Alert and oriented 3. #4 COPD-continue inhalers. #5 HTN- Anti-hypertensives have been resumed. Started on hydrochlorthiazide, losartan and labetolol. Pt currently on cardizem. #6 diabetes-blood sugars well controlled. Continue long-acting and short-acting insulin. Restart oral medications at the time of discharge. Problem List: 1. UTI (urinary tract infection) 2. Acute kidney failure Pain Ratin Pain Location: back Pain Goal: Pain 4 or less Pain Plan: tylenol prn Tomorrow's Labs & Rationales: cbc bep CHRISTOPHER MORATAYA MD 02/11/17 1039: Attending MD Review Statement Attending Statement Attending MD Statement: examined this patient, discuss w/resident/PA/PHYSICIAN CODING SPECIALIST, agreed w/resident/PA/PHYSICIAN CODING SPECIALIST, reviewed EMR data (avail) Attending Assessment/Plan: 76F PMH COPD, HTN, HLD, T2DM admitted for shortness of breath and confusion in the setting of Influenza B pneumonia, JAIRO, and Enterococcal positive urine culture, for which she received one dose of Vancomycin. Suspect this is likely colonization given absence of symptoms, fever, or leukocytosis. Patient improving, breathing is better, oxygen requirements near baseline (at 5L NC, baseline is 3.5-4L). Urine culture growing E.coli, suspect colonization. Hypertensive 210/95. Resident spoke with patient's PCP yesterday, discovered she should be on Losartan, which has been started. 1. Influenza B pneumonia 2. Acute on chronic hypoxemic respiratory failure 3. JAIRO 4. Enterococcal urine culture 5. Hypertensive urgency Plan - Given BP, may restart telemetry - Continue HCTZ and Losartan - Will start Labetalol and monitor - Titrate down oyxgen as tolerated - Continue nebulizer treatment - Continue Tamiflu - Pulmonary consult - Continue home medications - DVT PPx - Anticipated discharge tomorrow, please send CMR for review
--- NOTE | 2017-02-11 08:23 | NUR ---
Physical Therapy. PT consult received and chart reviewed. Pt's BP currently 210/95, deferring PT evaluation at this time and will f/u as appropriate.
[2017-02-11] MEDS ORDERED: LOSARTAN POTAS100 M1 PO (09:19)
--- NOTE | 2017-02-11 13:34 | PN- Pulmonary ---
Subjective HPI/Critical Care Issues: Relatively stable Still anxious and agitated attimes Objective Current Medications: Current Medications Sig/Mad[place] Start time Last Medication Dose Route Stop Time Status Admin Acetaminophen 650 MG .STK-MED ONE 02/11 0106 DC PO 02/11 0107 Acetaminophen 650 MG .STK-MED ONE 02/10 1736 DC PO 02/10 1737 Acetaminophen 650 MG Q8P PRN 02/08 1715 AC 02/11 PO 0112 Acetaminophen 1,000 MG Q8P PRN 02/08 1715 AC IV Albuterol Sulfate 3 ML EVERY 4 HRS/AWAKE 02/10 2000 AC 02/11 INH 1110 Diltiazem HCl 180 MG DAILY 02/09 1000 AC 02/11 PO 1054 Heparin Sodium 5,000 UNIT Q8 02/08 2200 AC 02/10 (Porcine) SC 2146 Hydralazine HCl 10 MG ONCE ONE 02/11 0745 DC 02/11 IV 02/11 0746 0750 Hydrochlorothiazide 25 MG DAILY 02/10 1000 AC 02/11 PO 1054 Insulin Aspart 0 TIDAC 02/08 1700 AC 02/10 SC 1731 Insulin Detemir 26 UNITS BID 02/08 2200 AC 02/11 SC 1100 Ipratropium [place] 2.5 ML EVERY 4 HRS/AWAKE 02/10 2000 AC 02/11 INH 1110 Labetalol HCl 100 MG ONCE ONE 02/11 0930 DC 02/11 PO 02/11 0931 1054 Levothyroxine Sodium 0.075 MG DAILY AC 02/09 0700 AC 02/11 PO 0648 Losartan Potassium 100 MG DAILY 02/10 1545 AC 02/11 PO 1054 Melatonin 5 MG AT BEDTIME 02/11 2200 AC PO Montelukast Sodium 10 MG DAILY 02/09 1000 AC 02/11 PO 1054 Morphine Sulfate 1 MG Q8P PRN 02/08 1715 AC IV Ondansetron HCl 4 MG ONCE ONE 02/10 2130 DC 02/10 IV 02/10 2131 2130 Oseltamivir Phosphate 30 MG BID 02/09 1035 AC 02/11 PO 02/13 1034 1055 Oxycodone/ 1 TAB ONCE ONE 02/10 1915 DC 02/10 Acetaminophen PO 02/11 1916 191 Patient Medication 1 ED .STK-MED ONE 02/10 1420 [place] Teaching ED 02/10 1421 Ramelteon 8 MG ONCE ONE 02/10 1915 DC 02/10 PO 02/10 Vital Signs & I&O Last 24 Hrs of Vitals and I&O: Vital Signs Date Time Temp Pulse Resp B/P Pulse O2 O2 Flow FiO2 Ox Delivery Rate 02/11 1315 150/72 02/11 1115 94 Nasal 3.0L Cannula 02/11 1054 68 180/84 02/11 1054 68 180/84 02/11 0927 184/72 02/11 0920 204/74 02/11 0800 94 Nasal 5.0L Cannula 02/11 0759 96.9 75 17 210/95 94 Nasal 5.0L Cannula 02/11 0758 96 Nasal 5.0L Cannula 02/11 0750 68 180/84 02/11 0056 97.2 68 24 176/86 93 Nasal 6.0L Cannula 02/11 0000 Nasal 5.0L Cannula 02/10 1939 184/80 02/10 1721 78 190/80 02/10 1720 65 20 196/80 90 Nasal 6.0L Cannula 02/10 1640 94 Nasal 6.0L Cannula 02/10 1600 90 Nasal 6.0L Cannula 02/10 1435 170/74 Intake & Output 02/11 1600 02/11 0800 02/11 0000 Intake Total 120 240 420 Output Total 768 670 8343 Balance -180 -360 -1080 Intake, IV 20 Intake, Oral 120 240 400 Number 0 Bowel Movements Output, Urine 188 226 5299 Impression/Plan Impression/Plan Impression/Plan: Physical Exam General Appearance Alert, Oriented X3, not cooperative and refusing admission Skin No Rashes HEENT Atraumatic, PERRLA, dry mucous membrane Cardiovascular Regular Rate, Normal S1, Normal S2, No Murmurs Lungs decreased air entry over both lungs Abdomen Soft, No Tenderness Neurological Normal Speech Extremities right leg has a large scar because of previous nonhealing ulcer that was treated surgically IMPRESSION This is a lady with multiple medical issues which include significant COPD on 4- 5 L of nasal cannula, hypertension, hyperlipidemia, anxiety, diabetes, recent UTI now comes in with altered mental status with * Slowly improving Acute hypoxemic respiratory failure most likely related to worsening chronic lung disease with end-stage COPD with influenza B causing her to have influenza pneumonitis * Unlikely that she has heart failure * Pulmonary embolism may need to be ruled out as a chest x-ray was not too remarkable but patient is not too keen on getting any further testing * Significant acute renal failure with recent UTI probable dehydration which is improved significantly but rule out any obstructive uropathy * Hypertension and diabetes * Anxiety and depression * Previous lung nodules but patient had refused further workup before per patient but she does not want to go through to many testing RECOMMENDATION * Continue Tamiflu * Continue other medications * Pt wishes no further imaging * Hold on any steroids * [id number] nebulizer * Consider rx for uti as she came in with renal failure with (nitrofurantoin for few weeks if symptomatic) * Follow electrolytes Ok to dc if sats are good Patient wishes to be DNR
--- NOTE | 2017-02-11 21:25 | Patient Discharge Instructions ---
Discharge Instructions General Discharge Information You were seen/treated for: - Influenza - COPD Watch for these problems: - fever, shorntess of breath, chest pain - buring urination. Special Instructions: - Please see your PCP within one week of discharge. - Please see your applications programmer within one week of discharge. - Please check BEP within one week. Please discuss with your PCP about restarting Losartan and Thiazide drug after kidney function is normalized. - Straight cath protocol BID to assess for urinary retention. If she continues to retain urine, please talk to PCP for a urological consultation. Acute Coronary Syndrome Inclusion Criteria At DC or during hospital stay patient has or had the following: ACS DIAGNOSIS No Discharge Core Measures Meds if any: Prescribed or Continued at Discharge Meds if any: NOT Prescribed or Continued at Discharge Congestive Heart Failure Inclusion Criteria At DC or during hospital stay patient has or had the following: CHF DIAGNOSIS No Discharge Core Measures Meds if any: Prescribed or Continued at Discharge Meds if any: NOT Prescribed or Continued at Discharge Cerebrovascular accident Inclusion Criteria At DC or during hospital stay patient has or had the following: CVA/TIA Diagnosis No Discharge Core Measures Meds if any: Prescribed or Continued at Discharge Meds if any: NOT Prescribed or Continued at Discharge Venous thromboembolism Inclusion Criteria VTE Diagnosis No VTE Type NONE VTE Confirmed by (Test) NONE Discharge Core Measures - Per Current guidelines, there needs to be overlap - treatment for the first 5 days of Warfarin therapy. - If discharged on Warfarin prior to 5 days of - overlap therapy, the patient will need to be - assessed for post discharge needs including - *Post discharge parental anticoagulation - *Warfarin and/or parental anticoagulation education - *Follow up date to check INR post discharge At least 5 days overlap therapy as Inpatient No Meds if any: Prescribed or Continued at Discharge Note: Overlap Therapy is Warfarin and Anticoagulant Meds if any: NOT Prescribed or Continued at Discharge
[2017-02-12 00:11] VITALS: BP 142/72
[2017-02-12 08:28] VITALS: BP 203/76
--- NOTE | 2017-02-12 08:40 | PN- Housestaff ---
MALLORY ARAGON,YESIKA 02/12/17 0840: Subjective Follow-up For: - AMS sec to UTI. Subjective: Patient seen and examined at bedside. Blood pressure continues to be elevated up to 200/70s systolically. Offers no new complaints. Denies any dyspnea, chest pain, palpitations, f/c, headache, dizziness, lightheadedness, n/v/c/d. Feeling well overall. Review of Systems Constitutional: Reports: see HPI. Objective Last 24 Hrs of Vital Signs/I&O Vital Signs Date Time Temp Pulse Resp B/P Pulse O2 O2 Flow FiO2 Ox Delivery Rate 02/12 0828 98.3 54 18 203/76 94 Nasal 3.0L Cannula 02/12 0826 95 Nasal 3.0L Cannula 02/12 0823 95 Nasal 3.0L Cannula 02/12 0011 98.0 67 22 142/72 93 Nasal Cannula 02/12 0000 Nasal 3.0L Cannula 02/11 2305 158/60 02/11 2217 64 202/102 02/11 2215 202/102 02/11 1915 94 Nasal 3.0L Cannula 02/11 1625 98.6 63 20 149/64 92 Nasal 5.0L Cannula 02/11 1600 Nasal 3.0L Cannula 02/11 1315 150/72 02/11 1115 94 Nasal 3.0L Cannula 02/11 1054 68 180/84 02/11 1054 68 180/84 02/11 0927 184/72 02/11 0920 204/74 Intake & Output 02/12 1600 02/12 0800 02/12 0000 Intake Total 50 490 Output Total 600 2 Balance -550 488 Intake, IV 10 Intake, Oral 50 480 Output, Other 2 Output, Urine 600 Patient 90.718 kg Weight Physical Exam General Appearance: Alert, Oriented X3, Cooperative Other Physical Findings: Skin: No Breakdown HEENT: PERRLA, EOMI Neck: No JVD, No thryomegaly Lymphatic: Cervical nl Cardiovascular: Normal S1, Normal S2 Lungs: cathie ronchi Abdomen: Soft, No Tenderness Neurological: Normal Speech, Strength at 5/5 X4 Ext Extremities: No Cyanosis, No Edema Vascular: Pulses Symmetrical Current Medications: Current Medications Sig/[place] Start time Last Medication Dose Route Stop Time Status Admin Acetaminophen 650 MG Q8P PRN 02/08 1715 AC 02/11 PO 0112 Acetaminophen 1,000 MG Q8P PRN 02/08 1715 AC IV Albuterol Sulfate 3 ML EVERY 4 HRS/AWAKE 02/10 2000 AC 02/12 INH 0818 Diltiazem HCl 180 MG DAILY 02/09 1000 AC 02/11 PO 1054 Heparin Sodium 5,000 UNIT Q8 02/08 2200 AC 02/12 (Porcine) SC 0614 Hydrochlorothiazide 25 MG DAILY 02/10 1000 AC 02/11 PO 1054 Insulin Aspart 0 TIDAC 02/08 1700 AC 02/11 SC 1723 Insulin Detemir 26 UNITS BID 02/08 2200 AC 02/11 SC 2217 Ipratropium [place] 2.5 ML EVERY 4 HRS/AWAKE 02/10 2000 AC 02/12 INH 0818 Labetalol HCl 100 MG BID 02/11 2200 AC 02/11 PO 2217 Labetalol HCl 100 MG ONCE ONE 02/11 0930 DC 02/11 PO 02/11 0931 1054 Levothyroxine Sodium 0.075 MG DAILY AC 02/09 0700 AC 02/12 PO 0615 Losartan Potassium 100 MG DAILY 02/10 1545 AC 02/11 PO 1054 Melatonin 5 MG AT BEDTIME 02/11 2200 AC 02/11 PO 2216 Montelukast Sodium 10 MG DAILY 02/09 1000 AC 02/11 PO 1054 Morphine Sulfate 1 MG Q8P PRN 02/08 1715 AC IV Ondansetron HCl 4 MG ONCE ONE 02/11 2345 DC 02/12 IV 02/11 2346 0625 Ondansetron HCl 4 MG ONCE ONE 02/11 1915 DC 02/11 IV 02/11 1916 1955 Oseltamivir Phosphate 30 MG BID 02/09 1035 AC 02/11 PO 02/13 1034 2217 Last 24 Hrs of Lab/[place] Results Last 24 Hrs of Labs/Mics: Laboratory Tests 02/11/17 0959: Anion Gap 12, Estimated GFR > 60, BUN/Creatinine Ratio 20.0 Assessment/Plan Assessment: Mrs. Lynn is a 76-year-old woman with a history of COPD (severe-3.5 L home oxygen), hypertension, diabetes is being evaluated and treated for shortness of breath, hypoxemia, cough and altered mental status. Admission diagnosis: #1 influenza #2 urinary tract infection #3 pneumonia Below is the problem list and plan: #1 shortness of breath-acute hypoxic respiratory failure. Currently requiring higher amount of oxygen to high flow nasal cannula. Reason-likely viral infection. Pulmonary embolism is not completely ruled out. Patient declining all imaging. Continue to taper oxygen as tolerated. No steroids, in view of influenza B positive. Continue Tamiflu. Serum creatinine stable as of yesterday. Dose of Tamiflu dose adjusted. TRC. Inhalers as needed. #2 acute kidney injury-serum creatinine and potassium improving. #3 altered mental status-patient aggressive at times. Alert and oriented 3. #4 COPD-continue inhalers. #5 HTN- Anti-hypertensives have been resumed. Started on hydrochlorthiazide, losartan and labetolol. Pt currently on cardizem. Blood pressure continues to be elevated up to 200/70s * Cardio consulted, follow recs #6 diabetes-blood sugars well controlled. Continue long-acting and short-acting insulin. Restart oral medications at the time of discharge. Problem List: 1. Pneumonia 2. COPD (chronic obstructive pulmonary disease) 3. Respiratory failure 4. Acute kidney failure 5. UTI (urinary tract infection) Pain Ratin Pain Location: 0 Pain Goal: Remain pain free Pain Plan: tylenol prn Tomorrow's Labs & Rationales: cbc freddy FRANCISCO MD,SANCHEZ 02/12/17 1235: Attending MD Review Statement Attending Statement Attending MD Statement: examined this patient, discuss w/resident/PA/VACUUM FORM OPERATOR, agreed w/resident/PA/VACUUM FORM OPERATOR, reviewed EMR data (avail), discussed with nursing, discussed with case mgmt, reviewed images, amended to note Attending Assessment/Plan: 76-year-old female with past medical history significant for COPD on 3-5 L of home oxygen, hypertension, hyperlipidemia, type 2 diabetes mellitus is being admitted and being treated for post influenza pneumonia.She was seen and examined this morning and is doing fine. She did not have any fever and her leukocytosis resolved. Her active issue is her uncontrollable blood pressure. Her home medications are diltiazem and low-dose hydrochlorothiazide. Her blood pressure remains elevated after adding losartan and high-dose labetalol. Note patient is asymptomatic but we would get a cardiology consultation for resistant hypertension. Patient would stay on the floor today and will discharge if her blood pressure remains stable tomorrow.
[2017-02-12 16:06] VITALS: BP 153/61
--- NOTE | 2017-02-12 18:33 | Cons- Cardiology ---
General Information and HPI Consulting Request Date of Consult: 02/12/17 Requested By: CHRISTOPHER MORATAYA MD History of Present Illness: Emily is a 76 year old female with history of hypertension, dyslipidemia and diabetes. She also carries a history of COPD. She was initially sent to [facility] for evaluation of mental status changes with confusion and fever. She was hypoxic with respiratory distress and was discovered to have influenza that is now being treated with Tamiflu. Her hospital course was complicated by acute renal failure that is now improving. She is also noted to have difficult to control blood pressure. At baseline this patient is only mildly active and walks slowly with a walker. She denies orthopnea. She also denies any chest discomfort, lightheadedness or palpitations. Increased levels of activity will elicit shortness of breath. Finally, this patient has a persistent right lower extremity discomfort. To review some pertinent past history this patient has lung nodules in addition to her COPD and has been on chronic oxygem therapy. A prior echo was remarkable for pulmonary hypertension. Allergies/Medications Allergies: Coded Allergies: Penicillins (02/08/17) Sulfa (Sulfonamide Antibiotics) (02/08/17) amoxicillin (02/08/17) crab (02/08/17) erythromycin base (02/08/17) potassium iodide (02/08/17) Home Med List: Diltiazem HCl (Cardizem Cd) 180 MG CAP.ER.24H 1 CAP PO DAILY HTN (Reported) Hydrochlorothiazide 25 MG TABLET 1 TAB PO DAILY BLOOD PRESSURE (Reported) Insulin Aspart (Novolog) 100 UNIT/ML VIAL 12 UNITS SC TIDAC DM (Reported) Insulin Detemir (Levemir) 100 UNIT/ML VIAL 26 UNITS SC BID DM (Reported) Levothyroxine Sodium 75 MCG TABLET 1 TAB PO DAILY HYPOTHYROID (Reported) Linagliptin (Tradjenta) 5 MG TABLET 1 TAB PO DAILY DM (Reported) Liraglutide (Victoza 2-Juan) 0.6 MG/0.1 ML (18 MG/3 ML) PEN.INJCTR 1.2 MG SC DAILY DM (Reported) Losartan Potassium 100 MG TABLET 1 TAB PO DAILY high blood pressure (Reported ) Meloxicam 15 MG TABLET 1 TAB PO DAILY PAIN (Reported) Metformin HCl 1,000 MG TABLET 1 TAB PO BID DM (Reported) Montelukast Sodium 10 MG TABLET 1 TAB PO DAILY COUGH (Reported) Past History Travel History Traveled to [place] past 21 day No Medical History Neurological: migraine EENT: NONE Cardiovascular: hypertension, hyperlipidemia Respiratory: COPD Gastrointestinal: NONE Hepatic: NONE Renal: NONE Musculoskeletal: osteoarthritis, CHRONIC PAIN Psychiatric: OPIOID ABUSE Endocrine: diabetes Blood Disorders: NONE Cancer(s): NONE Surgical History Surgical History: non-contributory Psychosocial History Where Do You Live? [facility] Smoking Status: Unknown If Ever Smoked Exam & Diagnostic Data Vital Signs and I&O Vital Signs Date Time Temp Pulse Resp B/P Pulse O2 O2 Flow FiO2 Ox Delivery Rate 02/12 1630 96 Nasal 3.0L Cannula 02/12 1610 95 Nasal 3.0L Cannula 02/12 1606 98.0 57 18 153/61 93 Nasal 3.0L Cannula 02/12 1205 162/70 02/12 0907 194/74 02/12 0907 194/74 02/12 0828 98.3 54 18 203/76 94 Nasal 3.0L Cannula 02/12 0826 95 Nasal 3.0L Cannula 02/12 0823 95 Nasal 3.0L Cannula 02/12 0011 98.0 67 22 142/72 93 Nasal Cannula 02/12 0000 Nasal 3.0L Cannula 02/11 2305 158/60 02/11 2217 64 202/102 02/11 2215 202/102 02/11 1915 94 Nasal 3.0L Cannula Intake & Output 02/12 1600 02/12 0800 02/12 0000 02/11 1600 02/11 0800 02/11 0000 Intake Total 400 50 490 360 240 420 Output Total 600 600 2 481 209 4607 Balance -200 -550 488 60 -360 -1080 Intake, IV 10 20 Intake, Oral 400 50 480 360 240 400 Number 1 0 0 Bowel Movements Output, Other 2 Output, Urine [id number] [id number] Patient 200 lb Weight Physical Exam: General: WD/obese female in NAD; alert and oriented x 3 HEENT: NC/AT, PERRL, EOMI, clear oropharynx Neck: no JVD, no carotid bruit Heart: RRR with 2/6 systolic murmur Lungs: no crackles or wheezing with decreased air movement bilaterally Abdomen: soft, obese, NT, +ve bowel sounds Extremities: no edema, surgical excision of RLE Assessment/Plan Assessment/Plan * This patient has poorly controlled BP. It has come down with multiple medications. I would not be more aggressive at this time since she has already dropped by about 50mmHg in the last 12 hours. Tomorrow we will again consider advancing her drug regimen, if needed. * In consideration of four antihypertensive medications being needed at reasonably high doses I would consider the possibility of renal artery stenosis. This patient should begin with an ultrasound of the renal arteries. * Obtain an echocardiogram to evaluate for myocardial thickening and to assess her RV pressures. Consult Acknowledgment - Thank you for your consult request.
[2017-02-12 22:00] VITALS: BP 150/70
--- NOTE | 2017-02-13 08:10 | PN- Housestaff ---
ALVERTO TOLEDO 02/13/17 0810: Subjective Follow-up For: HTN urgency influenza Acute on chronic respiratory failure Tele-Events Since Last Visit: srinus rhythm with a rate of 50s-60s with some PACs. 3 beat tachycardia noted at 743pm Subjective: Patient seen and examined at the bedside. Much less anxious but she is a little upset that her blood pressure means refractory and she remains admitted. She states she would like to see her however understands that she can't be discharged safely with her blood pressure was high. She denies any headache, visual changes, tinnitus, dizziness, nausea or vomiting. She also denies any chest pain palpitations. Low K noted 3.4 Review of Systems Constitutional: Reports: no symptoms, see HPI. Objective Last 24 Hrs of Vital Signs/I&O Vital Signs Date Time Temp Pulse Resp B/P Pulse O2 O2 Flow FiO2 Ox Delivery Rate 02/13 0846 02/13 0846 98.3 58 18 208/93 95 Nasal 3.0L Cannula 02/13 0841 02/13 0816 95 Nasal 3.0L Cannula 02/13 0000 94 Nasal 3.0L Cannula 02/12 2200 98.3 61 16 150/70 94 Nasal 3.0L Cannula 02/12 2102 61 150/70 02/12 1630 96 Nasal 3.0L Cannula 02/12 1610 95 Nasal 3.0L Cannula 02/12 1606 98.0 57 18 153/61 93 Nasal 3.0L Cannula 02/12 1205 162/70 Intake & Output 02/13 1600 02/13 0800 02/13 0000 Intake Total 100 Output Total 450 150 Balance -450 -50 Intake, Oral 100 Output, Urine 450 150 Physical Exam General Appearance: Alert, Oriented X3, Cooperative, No Acute Distress HEENT: Atraumatic, EOMI Neck: Supple, No JVD Cardiovascular: Regular Rate, Normal S1, Normal S2 Lungs: mild expiratory wheezing noted diffusely Abdomen: Soft, No Tenderness, decreased bowel sounds Extremities: No Cyanosis, No Edema Current Medications: Current Medications Sig/[place] Start time Last Medication Dose Route Stop Time Status Admin Acetaminophen 650 MG Q8P PRN 02/08 1715 AC 02/12 PO 2053 Acetaminophen 1,000 MG Q8P PRN 02/08 1715 AC IV Albuterol Sulfate 3 ML EVERY 4 HRS/AWAKE 02/10 2000 AC 02/13 INH 0814 Diltiazem HCl 180 MG DAILY 02/09 1000 AC 02/12 PO 0906 Docusate Sodium 100 MG BID 02/13 1006 AC PO Heparin Sodium 5,000 UNIT Q8 02/08 2200 AC 02/13 (Porcine) SC 0638 Hydralazine HCl 10 MG ONCE ONE 02/13 0830 DC 02/13 IV 02/13 0831 0846 Hydrochlorothiazide 25 MG DAILY 02/10 1000 AC 02/13 PO 0841 Insulin Aspart 0 TIDAC 02/08 1700 AC 02/12 SC 1206 Insulin Detemir 26 UNITS BID 02/08 2200 AC 02/12 SC 2101 Ipratropium [place] 2.5 ML EVERY 4 HRS/AWAKE 02/10 2000 AC 02/13 INH 0814 Labetalol HCl 200 MG BID 02/12 2200 AC 02/12 PO 2102 Levothyroxine Sodium 0.075 MG DAILY AC 02/09 0700 AC 02/13 PO 0638 Losartan Potassium 100 MG DAILY 02/10 1545 AC 02/13 PO 0841 Melatonin 5 MG AT BEDTIME 02/11 2200 AC 02/12 PO 2101 Montelukast Sodium 10 MG DAILY 02/09 1000 AC 02/13 PO 0841 Morphine Sulfate 1 MG Q8P PRN 02/08 1715 AC IV Oseltamivir Phosphate 30 MG BID 02/09 1035 AC 02/13 PO 02/13 1034 0839 Senna/Docusate Sodium 1 TAB BID 02/13 1006 UNVr PO Last 24 Hrs of Lab/[place] Results Last 24 Hrs of Labs/Mics: Laboratory Tests 02/13/17 0900: Sodium Pending, Potassium Pending, Chloride Pending, Carbon Dioxide Pending, Anion Gap Pending, BUN Pending, Creatinine Pending, BUN/Creatinine Ratio Pending , Cortisol AM Sample Pending, CBC w Diff Pending, WBC Pending, RBC Pending, Hgb Pending, Hct Pending, MCV Pending, MCH Pending, RDW Pending, Plt Count Pending, MPV Pending, PUBS MCHC Pending Assessment/Plan Assessment: Mrs. Lynn, 76-year-old female with significant past medical history of hypertension, diabetes, hyperlipidemia COPD [on 3.5 L of oxygen at home via nasal cannula, who presented to the hospital emergency department from an assisted living facility for altered mental status, and hypoxemia. Problem List/Assessment and Plan Dyspnea * Currently at baseline. She is saturating 95% on 3 L of oxygen via nasal cannula. * Most likely her acute on chronic respiratory failure was secondary to influenza which is currently being treated with Tamiflu. * Continue Tamiflu for a total of 14 days. * Pulmonary embolism is still not completely ruled out as the patient declined imaging however as her oxygen saturation is improving, now less likely. * Continue to taper oxygen as tolerated with TRC/nebs. No steroids, in view of influenza B positive. HTN urgency * Patient remains hypertensive which is delaying her discharge. * Review of her vitals over the last few days reveals that she has these episodes of retention in the morning. * Currently on 4 antihypertensive meds and refractory. A renal ultrasound was ordered yesterday to evaluate for renal artery stenosis, however we will also evaluate with cortisol level - ?ectopic ACTH production/cushings? * ?hyperaldosteronism? in light of her hypokalemia as well, but that is acute and her sodium is not significantly elevated - we will consider plasma aldosterone/plasma renin activity ratio * 10 mg of IV hydralazine given this am to acutely lower BP. Anti-hypertensives have been resumed. Started on hydrochlorthiazide, losartan and labetolol. Pt currently on cardizem. Blood pressure continues to be elevated up to 200/90s * Cardio consult appreciated Acute kidney injury * resolved * K 3.4, we will give 40meq of PO potassium Altered mental status * much improved * Alert and oriented 3. COPD w superimposing influenza * improving * continue TRC/nebs and tamiflu Diabetes * blood sugars well controlled on current regimen. * Continue long-acting and short-acting insulin. * Restart oral medications at the time of discharge. Problem List: 1. Acute kidney failure Pain Ratin Pain Location: na Pain Goal: Remain pain free (na) Pain Plan: na Tomorrow's Labs & Rationales: BEP in the am DANIEL FRANCISCO MD 02/13/17 1222: Attending MD Review Statement Attending Statement Attending MD Statement: examined this patient, discuss w/resident/PA/[employer] CLERK SAL[employer]ERSON, agreed w/resident/PA/RECORD CLERK SALESPERSON, discussed with family, reviewed EMR data (avail), discussed with nursing, discussed with case mgmt, reviewed images, amended to note Attending Assessment/Plan: 76-year-old female with past medical history significant for COPD on 3-5 L of home oxygen, hypertension, hyperlipidemia, type 2 diabetes mellitus is being admitted and being treated for post influenza pneumonia.She was seen and examined this morning and is doing fine. She did not have any fever and her leukocytosis resolved. Her active issue is her uncontrollable blood pressure. Her home medications are diltiazem and low-dose hydrochlorothiazide. Her blood pressure remains elevated after adding losartan and high-dose labetalol. Cardiology input appreciated and we are currently investigating her for secondary HTN by doing an US for KELLY. Patient would stay on the floor today and will discharge if her blood pressure remains stable tomorrow.
[2017-02-13 08:46] VITALS: BP 208/93
[2017-02-13 10:18] LABS: ABSOLUTE BASOPHIL COUNT 0 /CUMM (0.0-0.2); ABSOLUTE EOSINOPHIL COUNT 0.1 /CUMM (0.0-0.7); ABSOLUTE LYMPH COUNT 2.7 /CUMM (1.2-3.4); ABSOLUTE MONOCYTE COUNT 0.9 /CUMM (0.10-0.60); BASOPHIL % 0.3 % (0.0-2.0); EOSINOPHIL % 0.6 % (0-5); GRANULOCYTE % 65.8 % (42.2-75.2); HEMATOCRIT 35.3 % (37-47); MEAN CORPUSCULAR HGB 27.2 PG (27.0-31.0); MEAN CORPUSCULAR HGB CONC 32.1 G/DL (33.0-37.0); MEAN CORPUSCULAR VOLUME 84.6 FL (81.0-99.0); MEAN PLATELET VOLUME 8.5 FL (7.4-10.4); PLATELET COUNT 266 /CUMM (130-400); RBC DISTRIBUTION WIDTH 15.2 % (11.5-14.5); RED BLOOD CELL CT 4.17 /CUMM (4.20-5.40); WHITE BLOOD CELL COUNT 10.7 /CUMM (4.8-10.8)
[2017-02-13 10:51] VITALS: BP 154/78
--- NOTE | 2017-02-13 14:54 | PN- Cardiology ---
Subjective Subjective: * No complaints of chest discomfort, shortness of breath, lightheadedness of palpitations. She reported having a headache this morning in the setting of severe hypertension with BP greater than 200mmHg systolic. * Labetolol held this morning due to concern regarding her heart rate in the 50' s * potassium low at 3.4 Objective Vital Signs and I&Os Vital Signs Date Time Temp Pulse Resp B/P Pulse O2 O2 Flow FiO2 Ox Delivery Rate 02/13 1158 94 Nasal 3.0L Cannula 02/13 1051 154/78 02/13 0846 202/90 02/13 0846 98.3 58 18 208/93 95 Nasal 3.0L Cannula 02/13 0841 20202/13 0816 95 Nasal 3.0L Cannula 02/13 0000 94 Nasal 3.0L Cannula 02/12 2200 98.3 61 16 150/70 94 Nasal 3.0L Cannula 02/12 2102 61 150/70 02/12 1630 96 Nasal 3.0L Cannula 02/12 1610 95 Nasal 3.0L Cannula 02/12 1606 98.0 57 18 153/61 93 Nasal 3.0L Cannula Intake & Output 02/13 1600 02/13 0800 02/13 0000 02/12 1600 02/12 0800 02/12 0000 Intake Total 400 100 400 50 490 Output Total 700 450 150 600 600 2 Balance -300 -450 -50 -200 -550 488 Intake, IV 10 Intake, Oral 400 100 400 50 480 Number 2 1 Bowel Movements Output, Other 2 Output, Urine 700 450 150 600 600 Patient 200 lb Weight Physical Exam: General: WD/obese female in NAD; alert and oriented x 3 Neck: no JVD, no carotid bruit Heart: RRR with 2/6 systolic murmur Lungs: no crackles or wheezing with decreased air movement bilaterally Extremities: no edema, surgical excision of RLE Assessment/Plan Assessment/Plan * This patient has poorly controlled BP. Her Labetolol was held this morning due to concern over a heart rate in the 50's. The combination of Diltizem and a beta danuta could certainly result in bradycardia and even heart block. For now I would restart Labetolol at 200mg BID with the holding parameter of 54BPM or less. Continue Diltizem, HCTZ and Losartan. * In consideration of four antihypertensive medications being needed at reasonably high doses I would consider the possibility of renal artery stenosis. This patient should begin with an ultrasound of the renal arteries. * Obtain an echocardiogram to evaluate for myocardial thickening and to assess her RV pressures. Continue telemetry? Yes
--- NOTE | 2017-02-13 16:27 | ULTRASOUND REPORT ---
EXAMINATION: RENAL ULTRASOUND AND DOPPLER EXAM CLINICAL INFORMATION: Hypertension. Evaluate for renal artery stenosis. COMPARISON: None. TECHNIQUE: Doppler, color and grayscale evaluation of the kidneys. The patient could not hold her breath and Doppler exam is limited. FINDINGS: Right kidney: The right kidney measures 11.2 x 5.1 x 5.7 cm. Renal cortical thickness and echogenicity is normal. There is a 1.6 x 1.8 x 1 cm peripheral echogenic focus in the upper pole of the right kidney questionable for junctional parenchymal defect and partial volume averaging with the perinephric fat versus echogenic lesion such as angiomyolipoma. There is a 8 x 3 x 6 mm discrete echogenic density with twinkle artifact suggestive of small stone. No hydronephrosis is seen. Left kidney: Left kidney measures 13.2 x 6.2 x 6.6 cm in dimension. Renal cortical thickness and echogenicity is normal. No renal stone, mass or hydronephrosis is seen. Renal Doppler exam is markedly limited as the patient could not hold her breath. Renal arteries were not well visualized. The right renal artery was visualized distally in the hilum of the kidney only. The systolic velocity was normal estimated at 70 cm/s. The left renal artery was not well visualized. Left renal artery peak systolic velocities range from 140 to 177 cm/s. The abdominal aorta was not well visualized and peak systolic velocity in the aorta and renal artery to aorta ratios could not be obtained. Indirect evaluation of the renal arteries in the kidneys was not attempted. IMPRESSION: Right renal stone. 1.6 x 1.8 x 1 cm peripheral echogenic area in the upper pole of the right kidney. Differential would include a parenchymal junctional defect and partial volume averaging with the perinephric fat and possible angiomyolipoma. Follow-up CT or MR recommended. Small right renal stone. Normal left kidney. Renal Doppler exam nondiagnostic as the patient could not hold her breath and the renal arteries and aorta were not well visualized.
[2017-02-13 16:30] VITALS: BP 116/64
[2017-02-13 22:00] VITALS: BP 154/74
[2017-02-14 08:15] VITALS: BP 188/90
--- NOTE | 2017-02-14 08:25 | ECHOCARDIOGRAM REPORT ---
RORY ZUNIGA Age: 76 : 1940 Gender: F Exam Date: 02/13/2017 10:24 Exam Location: 1 [facility] Ht (in): 67 Wt (lb): 199 BSA: 2.09 BP: 150 / 70 Ordering Physician: ALVERTO TOLEDO MD Referring Physician: Mike Ríos MD, PhD Technologist: Vivi Velasquez [facility] Room Number: 184-01 Indications: HYPERTENSION Rhythm: Sinus Technical Quality: technically limited FINDINGS Left Ventricle Normal left ventricular size with mild left ventricular hypertrophy. Normal systolic function with no obvious regional wall motion abnormalities. Diastolic filling pattern is consistent with impaired LV relaxation. The ejection fraction is visually estimated at 65%. Right Ventricle The right ventricle is normal in size and function. Right Atrium The right atrium is normal in size. Left Atrium The left atrium is normal in size. The interatrial septum is intact. Mitral Valve The mitral valve is normal in structure and function. There is no mitral regurgitation. Aortic Valve Structurally normal aortic valve without significant sclerosis or stenosis. There is mild aortic regurgitation. Tricuspid Valve The tricuspid valve is normal in structure and function. There is trace tricuspid regurgitation. Pulmonary artery systolic pressure is normal. Pulmonic Valve Structurally normal pulmonic valve. There is no pulmonic regurgitation. Pericardium Normal pericardium without effusion. No pleural effusion. Great Vessels Normal aortic root dimension. The aortic arch and great vessels are well seen and are normal. CONCLUSIONS 1. Normal EF of 65% with impaired LV relaxation. 2. Mild left ventricular hypertrophy. 3. Mild aortic regurgitation. 4. Trace tricuspid regurgitation. Mike Ríos M.D. (Electronically Signed) Final Date: 14 February 2017 08:24 MEASUREMENTS (Male / Female) Normal Values 2D ECHO LV Diastolic Diameter PLAX 4.2 cm 4.2 - 5.9 / 3.9 - 5.3 cm LV Systolic Diameter PLAX 2.6 cm 2.1 - 4.0 cm LV Fractional Shortening PLAX 38.1 % 25 - 46 % LV Ejection Fraction 2D Teich 68.7 % IVS Diastolic Thickness 1.5 cm LVPW Diastolic Thickness 1.5 cm LV Relative Wall Thickness 0.7 RV Internal Dim ED PLAX 3.0 cm 1.9 - 3.8 cm LVOT Diameter 1.9 cm Aortic Root Diameter 3.1 cm LA Systolic Diameter LX 3.5 cm 3.0 - 4.0 / 2.7 - 3.8 cm LA Volume 33.0 cm 18 - 58 / 22 - 52 cm Ascending Aorta Diameter 3.5 cm DOPPLER AV Peak Velocity 254.0 cm/s AV Peak Gradient 25.8 mmHg AV Mean Velocity 182.0 cm/s AV Mean Gradient 15.0 mmHg AV Velocity Time Integral 52.9 cm LVOT Peak Velocity 191.0 cm/s LVOT Peak Gradient 14.6 mmHg LVOT Mean Velocity 150.0 cm/s LVOT Mean Gradient 10.0 mmHg LVOT Velocity Time Integral 41.8 cm LVOT Stroke Volume 118.5 cm AV Area Cont Eq vti 2.2 cm AV Area Cont Eq pk 2.1 cm MV Peak Velocity 99.3 cm/s MV Peak Gradient 3.9 mmHg MV Mean Velocity 49.3 cm/s MV Mean Gradient 1.0 mmHg Mitral E Point Velocity 72.6 cm/s Mitral A Point Velocity 102.0 cm/s Mitral E to A Ratio 0.7 MV PHT Velocity 83.0 cm/s MV Deceleration [place] 274.0 cm/s MV Pressure Half Time 90.9 ms MV Area PHT 2.4 cm MV Deceleration Time 313.0 ms TR Peak Velocity 193.0 cm/s TR Peak Gradient 14.9 mmHg Right Atrial Pressure 5.0 mmHg Pulmonary Artery Systolic Pressu 19.9 mmHg Right Ventricular Systolic Press 19.9 mmHg LV E' Lateral Velocity 9.8 cm/s Mitral E to LV E' Lateral Ratio 7.4 LV E' Septal Velocity 8.3 cm/s Mitral E to LV E' Septal Ratio 8.8
--- NOTE | 2017-02-14 09:19 | PN- Housestaff ---
MORENA CAREY 02/14/17 0918: Subjective Follow-up For: - Flu - HTN Tele-Events Since Last Visit: Normal sinus rhythm, heart [id number] 0.22-0.24. Heart rate ranged between 58-60 bpm. Subjective: Pt is comfortable this am. She was noted to have high blood pressure SBP >180, and was very anxious about the elevated blood pressure, that is delaying her discharge. Remained afebrile overnight. No other complaints. Currently on 3L oxygen, which is her baseline. Renal artery ultrasound was done, which was inconclusives. Spoke to Dr. Ríos, who suggested that we could pursue CT angio for a definitive evidence. Possibly hydrating her w/ fluids, and be able to image her w/ contrast. Radiologist, Dr. Salgado concurred w/ the plan and would like to get a CTA, and repeat US would not be beneficial. Review of Systems Constitutional: Reports: see HPI. Objective Last 24 Hrs of Vital Signs/I&O Vital Signs Date Time Temp Pulse Resp B/P Pulse O2 O2 Flow FiO2 Ox Delivery Rate 02/14 0815 98.1 59 22 188/90 95 Nasal 3.0L Cannula 02/14 0756 96 Nasal 3.0L Cannula 02/14 0000 Nasal 3.0L Cannula 02/13 2200 98.5 78 24 154/74 94 Nasal 3.0L Cannula 02/13 2140 78 154/74 02/13 1650 94 Nasal 3.0L Cannula 02/13 1635 95 Nasal 3.0L Cannula 02/13 1630 98.3 67 20 116/64 94 Nasal 3.0L Cannula 02/13 1514 80 154/74 02/13 1158 94 Nasal 3.0L Cannula 02/13 1051 154/78 Intake & Output 02/14 1600 02/14 0800 02/14 0000 Intake Total 100 450 Output Total 300 700 Balance -200 -250 Intake, IV 0 0 Intake, Oral 100 450 Number 0 0 Bowel Movements Output, Urine 300 700 Physical Exam General Appearance: No Acute Distress Other Physical Findings: General Exam: AAOx3, No acute distress, Skin: No rashes, no breakdown HEENT: PERRLA, EOMI Neck: Supple, No JVD No cervical lymphadenopathy CVS: Reg Rate, Normal S1,S2, No MGR Resp: Normal air entry, no ronchi/rales Abdomen: Soft, No tenderness, Normal Bowel Sounds Neuro: Normal Speech, Strength 5/5 b/l x 4 extremities, Sensation intact, CN III -XII NL, Reflexes 2+ Extremities: No cyanosis, pedal edema Current Medications: Current Medications Sig/[place] Start time Last Medication Dose Route Stop Time Status Admin Acetaminophen 650 MG .STK-MED ONE 02/13 2011 DC PO 02/14 2012 Acetaminophen 650 MG Q8P PRN 02/08 1715 AC 02/13 PO 2013 Acetaminophen 1,000 MG Q8P PRN 02/08 1715 AC IV Albuterol Sulfate 3 ML EVERY 4 HRS/AWAKE 02/10 2000 AC 02/14 INH 0750 Diltiazem HCl 180 MG DAILY 02/09 1000 AC 02/13 PO 1401 Docusate Sodium 100 MG BID 02/13 1006 AC 02/13 PO 2140 Heparin Sodium 5,000 UNIT Q8 02/08 2200 AC 02/14 (Porcine) SC 0615 Hydrochlorothiazide 25 MG DAILY 02/10 1000 AC 02/13 PO 0841 Insulin Aspart 0 TIDAC 02/08 1700 AC 02/12 SC 1206 Insulin Detemir 26 UNITS BID 02/08 2200 AC 02/13 SC 2140 Ipratropium [place] 2.5 ML EVERY 4 HRS/AWAKE 02/10 2000 AC 02/14 INH 0750 Labetalol HCl 200 MG BID 02/12 2200 AC 02/13 PO 2140 Levothyroxine Sodium 0.075 MG DAILY AC 02/09 0700 AC 02/14 PO 0615 Losartan Potassium 100 MG DAILY 02/10 1545 AC 02/13 PO 0841 Melatonin 5 MG AT BEDTIME 02/11 2200 AC 02/13 PO 2140 Montelukast Sodium 10 MG DAILY 02/09 1000 AC 02/13 PO 0841 Morphine Sulfate 1 MG Q8P PRN 02/08 1715 AC IV Oseltamivir Phosphate 30 MG BID 02/09 1035 DC 02/13 PO 02/13 1034 0839 Potassium Chloride 40 MEQ ONCE ONE 02/13 1045 DC 02/13 PO 02/13 1046 1114 Senna/Docusate Sodium 1 TAB BID 02/13 1006 AC 02/13 PO 2140 Last 24 Hrs of Lab/[place] Results Last 24 Hrs of Labs/Mics: Laboratory Tests 02/14/17 0644: Anion Gap 10, Estimated GFR 29 L, BUN/Creatinine Ratio 17.1, Magnesium 1.7 Assessment/Plan Assessment: Mrs. Lynn, 76-year-old female with significant past medical history of hypertension, diabetes, hyperlipidemia COPD [on 3.5 L of oxygen at home via nasal cannula, who presented to the hospital emergency department from an assisted living facility for altered mental status, and hypoxemia. Below is the problem list and plan: #1 Dyspnea: Currently at baseline. She is saturating 95% on 3 L of oxygen via nasal cannula. Most likely her acute on chronic respiratory failure was secondary to influenza which is currently being treated with Tamiflu. Oseltamivir.-Tamiflu has been discontinued after 5 days of therapy.Pulmonary embolism is still not completely ruled out as the patient declined imaging however as her oxygen saturation is improving, now less likely. Continue to taper oxygen as tolerated with TRC/nebs. No steroids, in view of influenza B positivity. #2 HTN urgency: Patient remains hypertensive which is delaying her discharge. Currently on 4 antihypertensives. Likely resistant hypertension. Inadequate information from the healthcare provider at [facility], as the patient has not been seen by a physician recently. Renal ultrasound was inconclusive as the patient could not hold her breath. CT angiogram to evaluate the renal arteries would be prudent at this time. Serum creatinine elevated (1.7). May try to hydrate the patient with half normal saline at a lower rate, to correct acute kidney injury. Since the patient is hypertensive, will use hydralazine as needed. The patient is currently on thiazide, and would benefit from chlorthalidone/spironolactone. Would not change any medications at this time, would defer the decision to the clinical services manager. Await aldosterone/renin ratio results. Hyperaldosteronism (likely secondary) is also on differential and is not completely ruled out. Echocardiogram (02/13/2017), revealed left ventricular ejection fraction greater than 65%. No obvious regional wall motion abnormalities were seen. Right ventricular systolic pressure 19.9. #3 Acute kidney injury- Sr Cr 1.7. Baseline 1.0. Half normal saline, gentle hydration. Reevaluate in the p.m. if the patient can receive IV contrast. #4 Altered mental status-improved #5 COPD w superimposing influenza- no steroids. Continue TRC nebs. Dr. Ritter advising. #6 Diabetes- blood sugars well controlled on current regimen. Continue long- acting and short-acting insulin. Restart oral medications at the time of discharge. Problem List: 1. UTI (urinary tract infection) 2. Acute kidney failure Pain Ratin Pain Location: none Pain Goal: Pain 4 or less Pain Plan: tylenol prn Tomorrow's Labs & Rationales: - no labs CHRISTOPHER MORATAYA MD 02/14/17 1327: Attending MD Review Statement Attending Statement Attending MD Statement: examined this patient, discuss w/resident/PA/PRODUCT MANAGEMENT INTERNSHIP, agreed w/resident/PA/[employer] MANA[employer] INTER[employer], reviewed EMR data (avail) Attending Assessment/Plan: 76F PMH COPD, HTN, HLD, T2DM admitted for shortness of breath and confusion in the setting of Influenza B pneumonia, JAIRO, and Enterococcal positive urine culture, for which she received one dose of Vancomycin. Suspect this is likely colonization given absence of symptoms, fever, or leukocytosis. Patient is back to baseline breathing, however, her blood pressure remains highly elevated despite increasing anti-hypertensive doses. She remains asymptomatic in this respect. Creatinine is increased today to 1.7. 1. Influenza B pneumonia 2. Acute on chronic hypoxemic respiratory failure 3. JAIRO 4. Enterococcal urine culture 5. Hypertensive urgency Plan - Continue on telemetry - Discontinue HCTZ and Losartan - Continue Labetalol - Continue Hydralazine - Follow pulmonary and nephrology recommendations - Continue nebulizer treatment - Completed Tamiflu course - Continue home medications - DVT PPx
--- NOTE | 2017-02-14 12:59 | Cons- Nephrology ---
General Information and HPI Consulting Request Date of Consult: 02/14/17 Requested By: CHRISTOPHER MORATAYA MD Reason for Consult: JAIRO Source of Information: patient, old records Exam Limitations: no limitations History of Present Illness: 76 yr old WF w mult med problems including obesity, long standing DM, difficult to control HTN & COPD admit 02/08/17 from [facility] w change mental status & hypoxic & hypercapnic resp failure. Found to have Influenza B & begun on Tamiflu w clinicial improvement. Baseline near normal renal function w Cr ~ 1.0 last month & found to have JAIRO w Cr 4.1 in setting thiazide diuretic, ARB, & NSAID. NSAID d /c but continued on thiazide & ARB w Cr improvement 0.9 till today when noted elevated 1.7. I/O persitently negative during hospitalization & ? had urinary retention requiring Vaca early in hospitalization. No IV contrast but BP labile w/o overt hypotension. No vomiitng or diarrhea. SOB better & no cough. Has also had lower UTI but no hx pyelo or stones. No hx diabetic retinopathy & dip proteinuria minimal on previous u/a. Allergies/Medications Allergies: Coded Allergies: Penicillins (02/08/17) Sulfa (Sulfonamide Antibiotics) (02/08/17) amoxicillin (02/08/17) crab (02/08/17) erythromycin base (02/08/17) potassium iodide (02/08/17) Home Med List: Diltiazem HCl (Cardizem Cd) 180 MG CAP.ER.24H 1 CAP PO DAILY HTN (Reported) Hydrochlorothiazide 25 MG TABLET 1 TAB PO DAILY BLOOD PRESSURE (Reported) Insulin Aspart (Novolog) 100 UNIT/ML VIAL 12 UNITS SC TIDAC DM (Reported) Insulin Detemir (Levemir) 100 UNIT/ML VIAL 26 UNITS SC BID DM (Reported) Levothyroxine Sodium 75 MCG TABLET 1 TAB PO DAILY HYPOTHYROID (Reported) Linagliptin (Tradjenta) 5 MG TABLET 1 TAB PO DAILY DM (Reported) Liraglutide (Victoza 2-Juan) 0.6 MG/0.1 ML (18 MG/3 ML) PEN.INJCTR 1.2 MG SC DAILY DM (Reported) Losartan Potassium 100 MG TABLET 1 TAB PO DAILY high blood pressure (Reported ) Meloxicam 15 MG TABLET 1 TAB PO DAILY PAIN (Reported) Metformin HCl 1,000 MG TABLET 1 TAB PO BID DM (Reported) Montelukast Sodium 10 MG TABLET 1 TAB PO DAILY COUGH (Reported) Current Medications: Current Medications Sig/Mad[place] Start time Last Medication Dose Route Stop Time Status Admin Acetaminophen 650 MG .STK-MED ONE 02/13 2011 DC PO 02/14 2012 Acetaminophen 650 MG Q8P PRN 02/08 1715 AC 02/13 PO 2013 Acetaminophen 1,000 MG Q8P PRN 02/08 1715 AC IV Albuterol Sulfate 3 ML EVERY 4 HRS/AWAKE 02/10 2000 AC 02/14 INH 1108 Diltiazem HCl 180 MG DAILY 02/09 1000 AC 02/14 PO 1051 Docusate Sodium 100 MG BID 02/13 1006 AC 02/14 PO 1051 Heparin Sodium 5,000 UNIT Q8 02/08 2200 AC 02/14 (Porcine) SC 0615 Hydralazine HCl 50 MG ONCE ONE 02/14 1130 DC PO 02/14 1131 Hydrochlorothiazide 25 MG DAILY 02/10 1000 AC 02/14 PO 1050 Insulin Aspart 0 TIDAC 02/08 1700 AC 02/12 SC 1206 Insulin Detemir 26 UNITS BID 02/08 2200 AC 02/14 SC 1051 Ipratropium [place] 2.5 ML EVERY 4 HRS/AWAKE 02/10 2000 AC 02/14 INH 1108 Labetalol HCl 200 MG BID 02/12 2200 AC 02/14 PO 1051 Levothyroxine Sodium 0.075 MG DAILY AC 02/09 0700 AC 02/14 PO 0615 Losartan Potassium 100 MG DAILY 02/10 1545 AC 02/14 PO 1051 Melatonin 5 MG AT BEDTIME 02/11 2200 AC 02/13 PO 2140 Montelukast Sodium 10 MG DAILY 02/09 1000 AC 02/14 PO 1050 Morphine Sulfate 1 MG Q8P PRN 02/08 1715 AC IV Oseltamivir Phosphate 30 MG BID 02/14 1115 DC PO 02/18 2159 Senna/Docusate Sodium 1 TAB BID 02/13 1006 AC 02/14 PO 1051 Sodium Chloride 1,000 ML Q13H 02/14 1000 AC 02/14 IV 02/14 2259 1115 Review of Systems Review of Systems Constitutional: Reports: no symptoms. EENTM: Reports: no symptoms. Cardiovascular: Reports: no symptoms. Respiratory: Reports: see HPI. Denies: short of breath, sputum production. GI: Denies: no symptoms. Genitourinary: Denies: no symptoms. Musculoskeletal: Denies: no symptoms. Skin: Denies: no symptoms. Neurological/Psychological: Denies: no symptoms. Hematologic/Endocrine: Denies: no symptoms. Immunologic/Allergic: Denies: no symptoms. All Other Systems: Reviewed and Negative Past History Travel History Traveled to [place] past 21 day No Medical History Neurological: migraine EENT: NONE Cardiovascular: hypertension, hyperlipidemia Respiratory: COPD Gastrointestinal: NONE Hepatic: NONE Renal: NONE Musculoskeletal: osteoarthritis, CHRONIC PAIN Psychiatric: OPIOID ABUSE Endocrine: diabetes Blood Disorders: NONE Cancer(s): NONE Surgical History Surgical History: non-contributory Family History Relations & Conditions If Any: FH: diabetes mellitus Relation not specified Psychosocial History Where Do You Live? Extended Care Facility Smoking Status: Former Smoker ETOH Use: denies use Exam & Diagnostic Data Vital Signs and I&O Vital Signs Date Time Temp Pulse Resp B/P Pulse O2 O2 Flow FiO2 Ox Delivery Rate 02/14 1051 188/84 02/14 1051 188/84 02/14 0936 97 Nasal 3.0L Cannula 02/14 0815 98.1 59 22 188/90 95 Nasal 3.0L Cannula 02/14 0756 96 Nasal 3.0L Cannula 02/14 0000 Nasal 3.0L Cannula 02/13 2200 98.5 78 24 154/74 94 Nasal 3.0L Cannula 02/13 2140 78 154/74 02/13 1650 94 Nasal 3.0L Cannula 02/13 1635 95 Nasal 3.0L Cannula 02/13 1630 98.3 67 20 116/64 94 Nasal 3.0L Cannula 02/13 1514 80 154/74 Intake & Output 02/14 1600 02/14 0400 02/13 1600 02/13 0400 02/12 1600 02/12 0400 Intake Total 100 450 400 100 450 490 Output Total 209 225 3054 150 1200 2 Balance -200 -250 -750 -50 -750 488 Intake, IV 0 0 10 Intake, Oral 100 450 400 100 450 480 Number 0 0 2 1 Bowel Movements Output, Other 2 Output, Urine 093 127 0031 150 1200 Patient 200 lb Weight Physical Exam General Appearance: well developed/nourished, no apparent distress, alert Head: atraumatic, normal appearance Eyes: Bilateral: normal appearance. 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 Skin: intact, normal color, warm/dry Lymphatic: no anterior cervical laura (no axil adenopathy) Results Pertinent Lab Results: Laboratory Tests 02/14 02/13 0644 0900 Chemistry Sodium (137 - 145 mmol/L) 138 137 Potassium (3.5 - 5.1 mmol/L) 3.9 3.4 L Chloride (98 - 107 mmol/L) 97 L 96 L Carbon Dioxide (22 - 30 mmol/L) 32 H 32 H Anion Gap (5 - 16) 10 10 BUN (7 - 17 mg/dL) 29 H 19 H Creatinine (0.5 - 1.0 mg/dL) 1.7 H 0.9 Estimated GFR (>60 ml/min) 29 L > 60 BUN/Creatinine Ratio (7 - 25 %) 17.1 21.1 Magnesium (1.6 - 2.3 mg/dL) 1.7 Cortisol AM Sample (4.46 - 22.7 ug/dL) 23.1 H Hematology CBC w Diff NO MAN DIFF REQ WBC (4.8 - 10.8 /CUMM) 10.7 RBC (4.20 - 5.40 /CUMM) 4.17 L Hgb (12.0 - 16.0 G/DL) 11.3 L Hct (37 - 47 %) 35.3 L MCV (81.0 - 99.0 FL) 84.6 MCH (27.0 - 31.0 PG) 27.2 RDW (11.5 - 14.5 %) 15.2 H Plt Count (130 - 400 /CUMM) 266 MPV (7.4 - 10.4 FL) 8.5 Gran % (42.2 - 75.2 %) 65.8 Lymphocytes % (20.5 - 51.1 %) 24.9 Monocytes % (1.7 - 9.3 %) 8.4 Eosinophils % (0 - 5 %) 0.6 Basophils % (0.0 - 2.0 %) 0.3 Absolute Granulocytes (1.4 - 6.5 /CUMM) 7.0 H Absolute Lymphocytes (1.2 - 3.4 /CUMM) 2.7 Absolute Monocytes (0.10 - 0.60 /CUMM) 0.9 H Absolute Eosinophils (0.0 - 0.7 /CUMM) 0.1 Absolute Basophils (0.0 - 0.2 /CUMM) 0 PUBS MCHC (33.0 - 37.0 G/DL) 32.1 L Imaging/Other Studies: Renal US & Doppler: Right kidney: The right kidney measures 11.2 x 5.1 x 5.7 cm. Renal cortical thickness and echogenicity is normal. There is a 1.6 x 1.8 x 1 cm peripheral echogenic focus in the upper pole of the right kidney questionable for junctional parenchymal defect and partial volume averaging with the perinephric fat versus echogenic lesion such as angiomyolipoma. There is a 8 x 3 x 6 mm discrete echogenic density with twinkle artifact suggestive of small stone. No hydronephrosis is seen. Left kidney: Left kidney measures 13.2 x 6.2 x 6.6 cm in dimension. Renal cortical thickness and echogenicity is normal. No renal stone, mass or hydronephrosis is seen. Renal Doppler exam is markedly limited as the patient could not hold her breath. Renal arteries were not well visualized. The right renal artery was visualized distally in the hilum of the kidney only. The systolic velocity was normal estimated at 70 cm/s. The left renal artery was not well visualized. Left renal artery peak systolic velocities range from 140 to 177 cm/s. The abdominal aorta was not well visualized and peak systolic velocity in the aorta and renal artery to aorta ratios could not be obtained. Indirect evaluation of the renal arteries in the kidneys was not attempted. IMPRESSION: Right renal stone. 1.6 x 1.8 x 1 cm peripheral echogenic area in the upper pole of the right kidney. Differential would include a parenchymal junctional defect and partial volume averaging with the perinephric fat and possible angiomyolipoma. Follow-up CT or MR recommended. Small right renal stone. Normal left kidney. Renal Doppler exam nondiagnostic as the patient could not hold her breath and the renal arteries and aorta were not well visualized. CXR: IMPRESSION: Limited evaluation. Small linear opacity right upper lobe. Mildly enlarged cardiac silhouette. ECHO: 1. Normal EF of 65% with impaired LV relaxation. 2. Mild left ventricular hypertrophy. 3. Mild aortic regurgitation. 4. Trace tricuspid regurgitation. Assessment/Plan Assessment/Recommendations Assessment: 1. JAIRO: ? prerenal due to over diuresis in setting of RAAS interruption; need to exclude urinary retention. Will screen for GN & AIN --> will repeat u/a. Doubt paraprotein but will exclude. Needs trial of volume expansion as thiazide & ARB held. 2. HTN: difficult to control --> ? underlying diabetic nephropathy; can't exclude KELLY but no urgency to evaluate w IV contrast study now given JAIRO & very hi risk ATN. Once renal function improved can consider CTA or MRA. Can increase labetolol as pulse tolerates & start hydralazine tid. 3. ? R renal mass: ? angiomyolipoma --> can w/u w CT or MR once stable Recommendations: 1. repeat u/a 2. urine prot/Cr ratio 3. SPEP 4. Vaca cath 5. hold HCTZ & losartan 6. increase hydralazine 50 mg tid 7. change IV NS 75 ml/hr 8. no CTA or renal A gram for now
--- NOTE | 2017-02-14 13:30 | PN- Pulmonary ---
Subjective HPI/Critical Care Issues: Pt is comfortable this am. She was noted to have high blood pressure SBP >180, and was very anxious about the elevated blood pressure, that is delaying her discharge. Remained afebrile overnight. No other complaints. Currently on 3L oxygen, which is her baseline. Objective Current Medications: Current Medications Sig/Madison Start time Last Medication Dose Route Stop Time Status Admin Acetaminophen 650 MG .STK-MED ONE 02/13 2011 DC PO 02/14 2012 Acetaminophen 650 MG Q8P PRN 02/08 1715 AC 02/13 PO 2013 Acetaminophen 1,000 MG Q8P PRN 02/08 1715 AC IV Albuterol Sulfate 3 ML EVERY 4 HRS/AWAKE 02/10 2000 AC 02/14 INH 1108 Diltiazem HCl 180 MG DAILY 02/09 1000 AC 02/14 PO 1051 Docusate Sodium 100 MG BID 02/13 1006 AC 02/14 PO 1051 Heparin Sodium 5,000 UNIT Q8 02/08 2200 AC 02/14 (Porcine) SC 1316 Hydralazine HCl 50 MG TID 02/14 1315 AC PO Hydralazine HCl 50 MG ONCE ONE 02/14 1130 DC PO 02/14 1131 Hydrochlorothiazide 25 MG DAILY 02/10 1000 DC 02/14 PO 1050 Insulin Aspart 0 TIDAC 02/08 1700 AC 02/14 SC 1307 Insulin Detemir 26 UNITS BID 02/080 AC 02/14 SC 1051 Ipratropium [place] 2.5 ML EVERY 4 HRS/AWAKE 02/09 2000 AC 02/14 INH 1108 Labetalol HCl 200 MG BID 02/12 2200 AC 02/14 PO 1051 Levothyroxine Sodium 0.075 MG DAILY AC 02/09 0700 AC 02/14 PO 0615 Losartan Potassium 100 MG DAILY 02/10 1545 DC 02/14 PO 1051 Melatonin 5 MG AT BEDTIME 02/11 2200 AC 02/13 PO 2140 Montelukast Sodium 10 MG DAILY 02/09 1000 AC 02/14 PO 1050 Morphine Sulfate 1 MG Q8P PRN 02/08 1715 AC IV Oseltamivir Phosphate 30 MG BID 02/14 1115 DC PO 02/18 2159 Senna/Docusate Sodium 1 TAB BID 02/13 1006 AC 02/14 PO 1051 Sodium Chloride 1,000 ML Q13H 02/14 1315 AC 02/14 IV 1316 Sodium Chloride 1,000 ML Q13H 02/14 1000 DC 02/14 IV 02/14 3243 5265 Vital Signs & I&O Last 24 Hrs of Vitals and I&O: Vital Signs Date Time Temp Pulse Resp B/P Pulse O2 O2 Flow FiO2 Ox Delivery Rate 02/14 1051 188/84 02/14 1051 188/84 02/14 0936 97 Nasal 3.0L Cannula 02/14 0815 98.1 59 22 188/90 95 Nasal 3.0L Cannula 02/14 0756 96 Nasal 3.0L Cannula 02/14 0000 Nasal 3.0L Cannula 02/13 2200 98.5 78 24 154/74 94 Nasal 3.0L Cannula 02/13 2140 78 154/74 02/13 1650 94 Nasal 3.0L Cannula 02/13 1635 95 Nasal 3.0L Cannula 02/13 1630 98.3 67 20 116/64 94 Nasal 3.0L Cannula 02/13 1514 80 154/74 Intake & Output 02/14 1600 02/14 0800 02/14 0000 Intake Total 100 450 Output Total 300 700 Balance -200 -250 Intake, IV 0 0 Intake, Oral 100 450 Number 0 0 Bowel Movements Output, Urine 300 700 Impression/Plan Impression/Plan Impression/Plan: Physical Exam General Appearance Alert, Oriented X3, not cooperative and refusing admission Skin No Rashes HEENT Atraumatic, PERRLA, dry mucous membrane Cardiovascular Regular Rate, Normal S1, Normal S2, No Murmurs Lungs decreased air entry over both lungs Abdomen Soft, No Tenderness Neurological Normal Speech Extremities right leg has a large scar because of previous nonhealing ulcer that was treated surgically IMPRESSION This is a lady with multiple medical issues which include significant COPD on 4- 5 L of nasal cannula, hypertension, hyperlipidemia, anxiety, diabetes, recent UTI now comes in with altered mental status with * Improved Acute hypoxemic respiratory failure most likely related to worsening chronic lung disease with end-stage COPD with influenza B causing her to have influenza pneumonitis * Pt wishes no further pulm testing * Significant acute renal failure with recent UTI probable dehydration May have bladder outlet obstruction * Hypertension and diabetes, with uncontrolled htn which is concerning to the patient * Anxiety and depression * Previous lung nodules but patient had refused further workup before per patient but she does not want to go through to many testing RECOMMENDATION * Continue other medications * Pt wishes no further imaging * Nebs tid and prn WIll follow Patient wishes to be DNR
[2017-02-14 15:58] VITALS: BP 142/72
--- NOTE | 2017-02-14 17:34 | PN- Cardiology ---
Subjective Subjective: * No complaints of headache, lightheadedness or shortness of breath. * Blood pressure is improved although not quite to our goal. * creatinine has risen to 1.7 with improved potassium Objective Vital Signs and I&Os Vital Signs Date Time Temp Pulse Resp B/P Pulse O2 O2 Flow FiO2 Ox Delivery Rate 02/14 1635 148/70 02/14 1558 98.6 62 18 142/72 95 Nasal 3.0L Cannula 02/14 1232 146/70 02/14 1051 188/84 02/14 1051 188/84 02/14 0936 97 Nasal 3.0L Cannula 02/14 0815 98.1 59 22 188/90 95 Nasal 3.0L Cannula 02/14 0756 96 Nasal 3.0L Cannula 02/14 0000 Nasal 3.0L Cannula 02/13 2200 98.5 78 24 154/74 94 Nasal 3.0L Cannula 02/13 2140 78 154/74 Intake & Output 02/14 1600 02/14 0800 02/14 0000 02/13 1600 02/13 0800 02/13 0000 Intake Total 400 100 450 400 100 Output Total 750 300 700 700 450 150 Balance -350 -200 -250 -300 -450 -50 Intake, IV 0 0 Intake, Oral 400 100 450 400 100 Number 0 0 2 Bowel Movements Output, Urine 750 300 700 700 450 150 Physical Exam: General: WD/obese female in NAD; alert and oriented x 3 Neck: no JVD, no carotid bruit Heart: RRR with 2/6 systolic murmur Lungs: no crackles or wheezing with decreased air movement bilaterally Extremities: no edema, surgical excision of RLE Assessment/Plan Assessment/Plan * This patient has BP although it is note to our goal. Begin hydralazine 100mg BID. Continue current dose of Labetolol and diltiazem. Due to her worsening renal function I would stop HCTZ and also hold Losartan. * In consideration of multiple antihypertensive medications being needed at reasonably high doses I would consider the possibility of renal artery stenosis. A renal ultrasound was non-diagnostic. I would pursue a CT angiogram once her renal function improves to baseline. Continue telemetry? Yes
[2017-02-14 23:56] VITALS: BP 136/70
--- NOTE | 2017-02-15 05:54 | PN- Housestaff ---
MORENA CAREY 02/15/17 0553: Subjective Follow-up For: - Flu - HTN Tele-Events Since Last Visit: Normal sinus rhythm, heart rate 57-69, overnight telemetry events. Subjective: The patient comfortable this morning. Did not have any complaints. Oxygen saturation above 92% on 3 L supplemental oxygen. Discussed w/ Dr. Morataya, and started Fosfomycin for a total of 3 doses. Review of Systems Constitutional: Reports: see HPI. Objective Last 24 Hrs of Vital Signs/I&O Vital Signs Date Time Temp Pulse Resp B/P Pulse O2 O2 Flow FiO2 Ox Delivery Rate 02/15 0000 Nasal 3.0L Cannula 02/14 2356 98.4 69 18 136/70 96 Nasal Cannula 02/14 2106 83 02/14 2106 83 02/14 1921 95 Nasal 3.0L Cannula 02/14 1748 94 Nasal 3.0L Cannula 02/14 1635 148/70 02/14 1558 98.6 62 18 142/72 95 Nasal 3.0L Cannula 02/14 1232 146/70 02/14 1051 188/84 02/14 1051 188/84 02/14 0936 97 Nasal 3.0L Cannula 02/14 0815 98.1 59 22 188/90 95 Nasal 3.0L Cannula 02/14 0756 96 Nasal 3.0L Cannula Intake & Output 02/15 0800 02/15 0000 02/14 1600 Intake Total 1080 400 Output Total 550 750 Balance 530 -350 Intake, IV 600 Intake, Oral 480 400 Output, Urine 550 750 Physical Exam General Appearance: No Acute Distress Other Physical Findings: General Exam: AAOx3, No acute distress, Skin: No rashes, no breakdown HEENT: PERRLA, EOMI Neck: Supple, No JVD No cervical lymphadenopathy CVS: Reg Rate, Normal S1,S2, No MGR Resp: Normal air entry, no ronchi/rales Abdomen: Soft, No tenderness, Normal Bowel Sounds Neuro: Normal Speech, Strength 5/5 b/l x 4 extremities, Sensation intact, CN III -XII NL, Reflexes 2+ Extremities: No cyanosis, pedal edema Current Medications: Current Medications Sig/Madison Start time Last Medication Dose Route Stop Time Status Admin Acetaminophen 650 MG Q8P PRN 02/08 1715 AC 02/13 PO 2013 Acetaminophen 1,000 MG Q8P PRN 02/08 1715 AC 02/14 IV 1640 Albuterol Sulfate 3 ML TID 02/14 2200 AC 02/14 INH 1920 Albuterol Sulfate 3 ML EVERY 4 HRS/AWAKE 02/10 2000 DC 02/14 INH 1108 Diltiazem HCl 180 MG DAILY 02/09 1000 AC 02/14 PO 1051 Docusate Sodium 100 MG BID 02/13 1006 AC 02/14 PO 2106 Heparin Sodium 5,000 UNIT Q8 02/08 2200 AC 02/14 (Porcine) SC 210 Hydralazine HCl 100 MG BID 02/14 2200 AC 02/14 PO 210 Hydralazine HCl 50 MG TID 02/14 1315 DC 02/14 PO 1635 Hydralazine HCl 50 MG ONCE ONE 02/14 1130 DC PO 02/14 1131 Hydrochlorothiazide 25 MG DAILY 02/10 1000 DC 02/14 PO 1050 Insulin Aspart 0 TIDAC 02/08 1700 AC 02/14 SC 1307 Insulin Detemir 26 UNITS BID 02/08 2200 AC 02/14 SC 2107 Ipratropium [place] 2.5 ML TID 02/14 2200 AC 02/14 INH 1919 Ipratropium [place] 2.5 ML EVERY 4 HRS/AWAKE 02/10 2000 DC 02/14 INH 1108 Labetalol HCl 200 MG BID 02/12 220 AC 02/14 PO 210 Levothyroxine Sodium 0.075 MG DAILY AC 02/09 0700 AC 02/14 PO 0615 Losartan Potassium 100 MG DAILY 02/10 1545 DC 02/14 PO 1051 Melatonin 5 MG AT BEDTIME 02/11 2200 AC 02/14 PO 210 Montelukast Sodium 10 MG DAILY 02/09 1000 AC 02/14 PO 1050 Morphine Sulfate 1 MG Q8P PRN 02/08 1715 AC IV Oseltamivir Phosphate 30 MG BID 02/14 1115 DC PO 02/18 2159 Senna/Docusate Sodium 1 TAB BID 02/13 1006 AC 02/14 PO 2106 Sodium Chloride 1,000 ML Q13H 02/14 1315 AC 02/15 IV 0143 Sodium Chloride 1,000 ML Q13H 02/14 1000 DC 02/14 IV 02/14 2259 1115 Last 24 Hrs of Lab/[place] Results Last 24 Hrs of Labs/Mics: Laboratory Tests 02/14/17 1825: Anion Gap 10, Estimated GFR 34 L, BUN/Creatinine Ratio 20.7 02/14/17 1304: Ur Random Creatinine Cancelled, U Random Total Protein Cancelled 02/14/17 1304: Urine Color YEL, Urine Clarity HAZY H, Urine pH 6.0, Ur Specific [place] 1.020, Urine Protein 30 H, Urine Ketones NEG, Urine Nitrite POS H, Urine Bilirubin NEG, Urine Urobilinogen 0.2, Ur Leukocyte Esterase MOD H, Ur Microscopic SEDIMENT EXAMINED, Urine RBC RARE, Urine WBC 10-15 H, Ur Epithelial Cells FEW, Urine Bacteria MANY H, Urine Hemoglobin TRACE-LYSED, Urine Glucose NEG 02/14/17 1230: Ref Lab Test Result Pending, Ur Random Creatinine 99.0, Ur Random Sodium 68, Ur Random Potassium 37.0, Fraction Sodium Excret 0.8 02/14/17 0644: Anion Gap 10, Estimated GFR 29 L, BUN/Creatinine Ratio 17.1, Magnesium 1.7 Microbiology 02/14 130 URINE ROUT: Urine Culture - RECD Assessment/Plan Assessment: Mrs. Lynn, 76-year-old female with significant past medical history of hypertension, diabetes, hyperlipidemia COPD [on 3.5 L of oxygen at home via nasal cannula, who presented to the hospital emergency department from an assisted living facility for altered mental status, and hypoxemia. Below is the problem list and plan: #1 Dyspnea: Currently at baseline. She is saturating 95% on 3 L of oxygen via nasal cannula. Most likely her acute on chronic respiratory failure was secondary to influenza which is currently being treated with Tamiflu. Oseltamivir.-Tamiflu has been discontinued after 5 days of therapy.Pulmonary embolism is still not completely ruled out as the patient declined imaging however as her oxygen saturation is improving, now less likely. Continue to taper oxygen as tolerated with TRC/nebs. No steroids, in view of influenza B positivity. #2 HTN urgency: Patient remains hypertensive which is delaying her discharge. Currently on 4 antihypertensives. Likely resistant hypertension. Started the patient on hydralazine 100 mg by mouth twice a day, labetalol 200 mg by mouth twice a day, amlodipine 10 mg by mouth daily (at bedtime). Hold losartan and hydrochlorothiazide at this time, as the patient has increased serum creatinine. Discontinue fluids. Reassess blood pressure in the afternoon. would benefit from chlorthalidone/spironolactone. Would not change any medications at this time, would defer the decision to the separator operator. Await aldosterone/renin ratio results. Hyperaldosteronism (likely secondary) is also on differential and is not completely ruled out. Echocardiogram (02/13/2017), revealed left ventricular ejection fraction greater than 65%. No obvious regional wall motion abnormalities were seen. Right ventricular systolic pressure 19.9. #3 Acute kidney injury- Sr Cr 1.1. Baseline 1.0. Half normal saline, gentle hydration. Reevaluate in the p.m. if the patient can receive IV contrast. #4 Altered mental status-improved #5 COPD w superimposing influenza- no steroids. Continue [facility] nebs. Dr. Ritter advising. #6 Diabetes- blood sugars well controlled on current regimen. Continue long- acting and short-acting insulin. Restart oral medications at the time of discharge. Problem List: 1. UTI (urinary tract infection) 2. Acute kidney failure Pain Ratin Pain Location: Lower back Pain Goal: Pain 4 or less Pain Plan: IV morphine Tomorrow's Labs & Rationales: no labs necessary, the patient discharged. CHRISTOPHER MORATAYA MD 02/15/17 1101: Attending MD Review Statement Attending Statement Attending MD Statement: examined this patient, discuss w/resident/PA/E [employer]ER[employer] STRATEGIST, agreed w/resident/PA/E [employer] STRATEGIST, reviewed EMR data (avail) Attending Assessment/Plan: 76F PMH COPD, HTN, HLD, T2DM admitted for shortness of breath and confusion in the setting of Influenza B pneumonia, JAIRO, and Enterococcal positive urine culture, for which she received one dose of Vancomycin. Suspect this is likely colonization given absence of symptoms, fever, or leukocytosis. Patient is back to baseline breathing. BP is improved and now controlled. Creatinine improved to 1.1. 1. Influenza B pneumonia 2. Acute on chronic hypoxemic respiratory failure 3. JAIRO 4. Enterococcal urine culture 5. Hypertensive urgency Plan - Stable for discharge - Discontinue HCTZ and Losartan - Continue Labetalol, Amlodipine, and Hydralazine - Follow pulmonary and nephrology recommendations - Completed Tamiflu course - Continue home medications - Outpatient follow up with cardiology and nephrology for evaluation for possible renal artery stenosis
[2017-02-15 08:00] VITALS: BP 178/80
[2017-02-15] MEDS ORDERED: LABETALOL HCL200 M1 PO (10:20)
[2017-02-15] MEDS ORDERED: NORVASC10 M1 PO (10:21)
[2017-02-15] MEDS ORDERED: IPRATROPIU0.2 MG/1 M INH/SOL (10:23)
--- NOTE | 2017-02-15 10:39 | PN- Pulmonary ---
Subjective HPI/Critical Care Issues: Doing better Pulmonary hurley back to normal Complaints of mild headache Afebrile Objective Current Medications: Current Medications Sig/[place] Start time Last Medication Dose Route Stop Time Status Admin Acetaminophen 650 MG Q8P PRN 02/08 171 AC 02/13 PO 2013 Acetaminophen 1,000 MG Q8P PRN 02/08 1715 AC 02/15 IV 0843 Albuterol Sulfate 3 ML TID 02/14 2200 AC 02/15 INH 0807 Albuterol Sulfate 3 ML EVERY 4 HRS/AWAKE 02/10 2000 DC 02/14 INH 1108 Amlodipine Besylate 10 MG 02/15 AC PO Diltiazem HCl 180 MG DAILY 02/09 1000 DC 02/15 PO 0848 Docusate Sodium 100 MG BID 02/13 1006 AC 02/15 PO 0848 Heparin Sodium 5,000 UNIT Q8 02/08 2200 AC 02/15 (Porcine) SC 0648 Hydralazine HCl 100 MG BID 02/14 2200 AC 02/15 PO 0848 Hydralazine HCl 50 MG TID 02/14 1315 DC 02/14 PO 1635 Hydralazine HCl 50 MG ONCE ONE 02/14 1130 DC PO 02/14 1131 Hydrochlorothiazide 25 MG DAILY 02/10 1000 DC 02/14 PO 1050 Insulin Aspart 0 TIDAC 02/08 1700 AC 02/14 SC 1307 Insulin Detemir 26 UNITS BID 02/08 2200 AC 02/15 SC 0936 Ipratropium [place] 2.5 ML TID 02/140 AC 02/15 INH 0807 Ipratropium [place] 2.5 ML EVERY 4 HRS/AWAKE 02/10 2000 DC 02/14 INH 1108 Labetalol HCl 200 MG BID 02/12 220 AC 02/15 PO 0847 Levothyroxine Sodium 0.075 MG DAILY AC 02/09 0700 AC 02/15 PO 0648 Losartan Potassium 100 MG DAILY 02/10 1545 DC 02/14 PO 1051 Melatonin 5 MG AT BEDTIME 02/11 2200 AC 02/14 PO 2106 Montelukast Sodium 10 MG DAILY 02/09 1000 AC 02/15 PO 0847 Morphine Sulfate 1 MG Q8P PRN 02/08 171 AC IV Oseltamivir Phosphate 30 MG BID 02/14 1115 DC PO 02/18 2159 Senna/Docusate Sodium 1 TAB BID 02/13 1006 AC 02/15 PO 0847 Sodium Chloride 1,000 ML Q13H 02/14 1315 AC 02/15 IV 0143 Sodium Chloride 1,000 ML Q13H 02/14 1000 DC 02/14 IV 02/14 2259 1115 Vital Signs & I&O Last 24 Hrs of Vitals and I&O: Laboratory Tests 02/15 02/15 02/14 02/14 0910 0910 1825 1304 Chemistry Sodium (137 - 145 mmol/L) 134 L 134 L Potassium (3.5 - 5.1 mmol/L) 3.9 3.8 Chloride (98 - 107 mmol/L) 99 94 L Carbon Dioxide (22 - 30 mmol/L) 29 29 Anion Gap (5 - 16) 5 10 BUN (7 - 17 mg/dL) 22 H 31 H Creatinine (0.5 - 1.0 mg/dL) 1.1 H 1.5 H Estimated GFR (>60 ml/min) 49 L 34 L BUN/Creatinine Ratio (7 - 25 %) 20.0 20.7 Prot Electrophoresis Pending Total Protein (PEP) Pending Albumin % (PEP) Pending [id number] Pending Gdecc-3-Ivubgcvbg Pending Pwjb-3-Wztgrxvo Pending Nhfl-5-Pwnkfpub Pending Gamma Globulins Pending Abnorm Protein Band 1 Pending Abnorm Protein Band 2 Pending Abnorm Protein Band 3 Pending Urines Ur Random Creatinine Cancelled U Random Total Protein Cancelled 02/14 02/14 02/14 1304 1230 0644 Chemistry Sodium (137 - 145 mmol/L) 138 Potassium (3.5 - 5.1 mmol/L) 3.9 Chloride (98 - 107 mmol/L) 97 L Carbon Dioxide (22 - 30 mmol/L) 32 H Anion Gap (5 - 16) 10 BUN (7 - 17 mg/dL) 29 H Creatinine (0.5 - 1.0 mg/dL) 1.7 H Estimated GFR (>60 ml/min) 29 L BUN/Creatinine Ratio (7 - 25 %) 17.1 Magnesium (1.6 - 2.3 mg/dL) 1.7 Miscellaneous Ref Lab Test Result Pending Urines Urine Color (YEL,AMB,STR) YEL Urine Clarity (CLEAR) HAZY H Urine pH (5.0 - 8.0) 6.0 Ur Specific [place] (1.001 - 1.035) 1.020 Urine Protein (NEG,<30 MG/DL) 30 H Urine Ketones (NEG) NEG Urine Nitrite (NEG) POS H Urine Bilirubin (NEG) NEG Urine Urobilinogen (0.1 - 1.0 EU/dl) 0.2 Ur Leukocyte Esterase (NEG) MOD H Ur Microscopic SEDIMENT EXAMINED Urine RBC (0 - 5 /HPF) RARE Urine WBC (0 - 2 /HPF) 10-15 H Ur Epithelial Cells (NONE,FEW) FEW Urine Bacteria (NEG/NONE) MANY H Urine Hemoglobin (NEG) TRACE-LYSED Ur Random Creatinine (mg/dL) 99.0 Ur Random Sodium (30 - 90 mmol/L) 68 Ur Random Potassium (mmol/L) 37.0 Fraction Sodium Excret (<1% %) 0.8 Urine Glucose (N MG/DL) NEG Microbiology Date/Time Procedure - Status Source Growth 02/14 1304 Urine Culture - RECD URINE ROUT Vital Signs Date Time Temp Pulse Resp B/P Pulse O2 O2 Flow FiO2 Ox Delivery Rate 02/15 0848 98.8 64 20 178/02/15 0847 98.8 64 20 178/80 02/15 0814 98 Nasal 3.0L Cannula 02/15 0800 94 Nasal 3.0L Cannula 02/15 0800 98.8 64 20 178/80 96 Nasal 3.0L Cannula 02/15 0000 Nasal 3.0L Cannula 02/14 2356 98.4 69 18 136/70 96 Nasal Cannula 02/14 2106 83 02/14 2106 83 02/14 1921 95 Nasal 3.0L Cannula 02/14 1748 94 Nasal 3.0L Cannula 02/14 1635 148/70 02/14 1558 98.6 62 18 142/72 95 Nasal 3.0L Cannula 02/14 1232 146/70 02/14 1051 188/84 02/14 1051 188/84 Intake & Output 02/15 1600 02/15 0800 02/15 0000 Intake Total 650 1080 Output Total 850 550 Balance -200 530 Intake, IV 600 600 Intake, Oral 50 480 Output, Urine 850 550 Impression/Plan Impression/Plan Impression/Plan: Physical Exam General Appearance Alert, Oriented X3, not cooperative and refusing admission Skin No Rashes HEENT Atraumatic, PERRLA, dry mucous membrane Cardiovascular Regular Rate, Normal S1, Normal S2, No Murmurs Lungs decreased air entry over both lungs Abdomen Soft, No Tenderness Neurological Normal Speech Extremities right leg has a large scar because of previous nonhealing ulcer that was treated surgically IMPRESSION This is a lady with multiple medical issues which include significant COPD on 4- 5 L of nasal cannula, hypertension, hyperlipidemia, anxiety, diabetes, recent UTI now comes in with altered mental status with * Improved Acute hypoxemic respiratory failure most likely related to worsening chronic lung disease with end-stage COPD with influenza B causing her to have influenza pneumonitis * Pt wishes no further pulm testing * improving acute renal failure with recent UTI probable dehydration May have bladder outlet obstruction * Hypertension and diabetes, with uncontrolled htn which is concerning to the patient * Anxiety and depression * Previous lung nodules but patient had refused further workup before per patient but she does not want to go through to many testing RECOMMENDATION * Continue other medications * Pt wishes no further imaging * Nebs tid and prn WIll follow Patient wishes to be DNR
[2017-02-15] MEDS ORDERED: HYDRALAZINE HC100 M1 PO (10:52)
[2017-02-15 11:47] VITALS: BP 138/52
--- NOTE | 2017-02-15 12:10 | PN- Nephrology ---
Assessment/Plan Assessment: 1. JAIRO: improved & near baseline --> ? retention ? prerenal 2. HTN: labile but better control; would leave off thiazide & can restart losartan as out pt @ lower dose ~ 25 mg/day if needed 3. ? R renal mass: needs CT or MR 4. UTI: Ecoli in urine earlier in hosp resistent mult antibiotics & now gram neg rods --> needs antibitoic coverage based on sensitivities Suggestion: 1. d/c IV fluids 2. needs voiding trial & urology eval re retention --> ? neurogenic bladder - can do as outpt @ [facility] 3. no thiazide 4. losartan 25 mg qday if BP >130/[address] or MR as outpt 6. antibiotic coverage E coli based on sensitivities Subjective Subjective: No SOB; no cough Eating ? 450 ml residual urine on Vaca placement yeterday Objective Vital Signs and I&Os Vital Signs Date Time Temp Pulse Resp B/P Pulse O2 O2 Flow FiO2 Ox Delivery Rate 02/15 1147 62 138/52 02/15 0848 98.8 64 20 178/80 02/15 0847 98.8 64 20 178/80 02/15 0814 98 Nasal 3.0L Cannula 02/15 0800 94 Nasal 3.0L Cannula 02/15 0800 98.8 64 20 178/80 96 Nasal 3.0L Cannula 02/15 0000 Nasal 3.0L Cannula 02/14 2356 98.4 69 18 136/70 96 Nasal Cannula 02/14 2106 83 02/14 2106 83 02/14 1921 95 Nasal 3.0L Cannula 02/14 1748 94 Nasal 3.0L Cannula 02/14 1635 148/70 02/14 1558 98.6 62 18 142/72 95 Nasal 3.0L Cannula 02/14 1232 146/70 Intake & Output 02/15 1600 02/15 0400 02/14 1600 02/14 0400 02/13 1600 02/13 0400 Intake Total 650 1080 500 450 400 100 Output Total 488 351 4120 700 1150 150 Balance -200 530 -550 -250 -750 -50 Intake, IV 600 600 0 0 Intake, Oral 50 480 500 450 400 100 Number 0 0 2 Bowel Movements Output, Urine 164 809 1101 700 1150 150 Physical Exam General Appearance: well developed/nourished, no apparent distress, alert Head: atraumatic, normal appearance Ears, Nose, Throat: normal ENT inspection Respiratory: no respiratory distress, quiet respiration, rhonchi Cardiovascular: regular rate/rhythm Abdomen: soft, non-tender, no organomegaly Extremities: no edema Neurologic/Psychiatric: awake, alert Skin: intact, normal color Lymphatic: no anterior cervical laura Current Medications: Current Medications Sig/[place] Start time Last Medication Dose Route Stop Time Status Admin Acetaminophen 650 MG Q8P PRN 02/08 171 AC 02/13 PO 2014 Acetaminophen 1,000 MG Q8P PRN 02/08 1715 AC 02/15 IV 0843 Albuterol Sulfate 3 ML TID 02/14 2200 AC 02/15 INH 0807 Albuterol Sulfate 3 ML EVERY 4 HRS/AWAKE 02/10 2000 DC 02/14 INH 1108 Amlodipine Besylate 10 MG 02/15 AC PO Diltiazem HCl 180 MG DAILY 02/09 1000 DC 02/15 PO 0848 Docusate Sodium 100 MG BID 02/13 1006 AC 02/15 PO 0848 Heparin Sodium 5,000 UNIT Q8 02/08 2200 AC 02/15 (Porcine) SC 0648 Hydralazine HCl 100 MG BID 02/14 220 AC 02/15 PO 0848 Hydralazine HCl 50 MG TID 02/14 1315 DC 02/14 PO 1635 Hydrochlorothiazide 25 MG DAILY 02/10 1000 DC 02/14 PO 1050 Insulin Aspart 0 TIDAC 02/08 1700 AC 02/15 SC 1155 Insulin Detemir 26 UNITS BID 02/080 AC 02/15 SC 0936 Ipratropium [place] 2.5 ML TID 02/14 220 AC 02/15 INH 0807 Ipratropium [place] 2.5 ML EVERY 4 HRS/AWAKE 02/10 2000 DC 02/14 INH 1108 Labetalol HCl 200 MG BID 02/12 220 AC 02/15 PO 0847 Levothyroxine Sodium 0.075 MG DAILY AC 02/09 0700 AC 02/15 PO 0648 Losartan Potassium 100 MG DAILY 02/10 1545 DC 02/14 PO 1051 Melatonin 5 MG AT BEDTIME 02/11 2200 AC 02/14 PO 2106 Montelukast Sodium 10 MG DAILY 02/09 1000 AC 02/15 PO 0847 Morphine Sulfate 1 MG Q8P PRN 02/08 171 AC IV Senna/Docusate Sodium 1 TAB BID 02/13 1006 AC 02/15 PO 0847 Sodium Chloride 1,000 ML Q13H 02/14 1315 AC 02/15 IV 0143 Sodium Chloride 1,000 ML Q13H 02/14 1000 DC 02/14 IV 02/14 2259 1115 Results Pertinent Lab Results: Laboratory Tests 02/15 02/15 02/15 02/15 02/14 1116 1007 0910 0910 1825 Chemistry Sodium (137 - 145 mmol/L) 134 L 134 L Potassium (3.5 - 5.1 mmol/L) 3.9 3.8 Chloride (98 - 107 mmol/L) 99 94 L Carbon Dioxide (22 - 30 mmol/L) 29 29 Anion Gap (5 - 16) 5 10 BUN (7 - 17 mg/dL) 22 H 31 H Creatinine (0.5 - 1.0 mg/dL) 1.1 H 1.5 H Estimated GFR (>60 ml/min) 49 L 34 L BUN/Creatinine Ratio (7 - 25 %) 20.0 20.7 Prot Electrophoresis Pending Total Protein (PEP) Pending Albumin % (PEP) Pending Uaqcf-4-Ccqrzxvml Pending Vwtxi-2-Xejbiokhf Pending Lcxr-7-Knhvofrf Pending Vdry-3-Azjbsjex Pending Gamma Globulins Pending Abnorm Protein Band 1 Pending Abnorm Protein Band 2 Pending Abnorm Protein Band 3 Pending Miscellaneous Ref Lab Test Result Pending Urines Ur Random Creatinine Cancelled U Random Total Protein Cancelled 02/14 02/14 02/14 1304 1304 1230 Miscellaneous Ref Lab Test Result Pending Urines Urine Color (YEL,AMB,STR) YEL Urine Clarity (CLEAR) HAZY H Urine pH (5.0 - 8.0) 6.0 Ur Specific [place] (1.001 - 1.035) 1.020 Urine Protein (NEG,<30 MG/DL) 30 H Urine Ketones (NEG) NEG Urine Nitrite (NEG) POS H Urine Bilirubin (NEG) NEG Urine Urobilinogen (0.1 - 1.0 EU/dl) 0.2 Ur Leukocyte Esterase (NEG) MOD H Ur Microscopic SEDIMENT EXAMINED Urine RBC (0 - 5 /HPF) RARE Urine WBC (0 - 2 /HPF) 10-15 H Ur Epithelial Cells (NONE,FEW) FEW Urine Bacteria (NEG/NONE) MANY H Urine Hemoglobin (NEG) TRACE-LYSED Ur Random Creatinine (mg/dL) Cancelled 99.0 U Random Total Protein Cancelled Ur Random Sodium (30 - 90 mmol/L) 68 Ur Random Potassium (mmol/L) 37.0 Fraction Sodium Excret (<1% %) 0.8 Urine Glucose (N MG/DL) NEG 02/14 02/13 0644 0900 Chemistry Sodium (137 - 145 mmol/L) 138 137 Potassium (3.5 - 5.1 mmol/L) 3.9 3.4 L Chloride (98 - 107 mmol/L) 97 L 96 L Carbon Dioxide (22 - 30 mmol/L) 32 H 32 H Anion Gap (5 - 16) 10 10 BUN (7 - 17 mg/dL) 29 H 19 H Creatinine (0.5 - 1.0 mg/dL) 1.7 H 0.9 Estimated GFR (>60 ml/min) 29 L > 60 BUN/Creatinine Ratio (7 - 25 %) 17.1 21.1 Magnesium (1.6 - 2.3 mg/dL) 1.7 Cortisol AM Sample (4.46 - 22.7 ug/dL) 23.1 H Hematology CBC w Diff NO MAN DIFF REQ WBC (4.8 - 10.8 /CUMM) 10.7 RBC (4.20 - 5.40 /CUMM) 4.17 L Hgb (12.0 - 16.0 G/DL) 11.3 L Hct (37 - 47 %) 35.3 L MCV (81.0 - 99.0 FL) 84.6 MCH (27.0 - 31.0 PG) 27.2 RDW (11.5 - 14.5 %) 15.2 H Plt Count (130 - 400 /CUMM) 266 MPV (7.4 - 10.4 FL) 8.5 Gran % (42.2 - 75.2 %) 65.8 Lymphocytes % (20.5 - 51.1 %) 24.9 Monocytes % (1.7 - 9.3 %) 8.4 Eosinophils % (0 - 5 %) 0.6 Basophils % (0.0 - 2.0 %) 0.3 Absolute Granulocytes (1.4 - 6.5 /CUMM) 7.0 H Absolute Lymphocytes (1.2 - 3.4 /CUMM) 2.7 Absolute Monocytes (0.10 - 0.60 /CUMM) 0.9 H Absolute Eosinophils (0.0 - 0.7 /CUMM) 0.1 Absolute Basophils (0.0 - 0.2 /CUMM) 0 PUBS MCHC (33.0 - 37.0 G/DL) 32.1 L
[2017-02-15] MEDS ORDERED: MONUROL3 G1 PO (12:27)
[2017-02-15 13:05] VITALS: BP 138/52
--- NOTE | 2017-02-15 14:14 | PN- Cardiology ---
Subjective Subjective: * No complaints of headache, lightheadedness or shortness of breath. * Blood pressure is improved although not quite to our goal. * creatinine has come down to 1.1 Objective Vital Signs and I&Os Vital Signs Date Time Temp Pulse Resp B/P Pulse O2 O2 Flow FiO2 Ox Delivery Rate 02/15 1305 98.8 62 20 138/52 02/15 1147 62 138/52 02/15 0848 98.8 64 20 178/80 02/15 0847 98.8 64 20 178/80 02/15 0814 98 Nasal 3.0L Cannula 02/15 0800 94 Nasal 3.0L Cannula 02/15 0800 98.8 64 20 178/80 96 Nasal 3.0L Cannula 02/15 0000 Nasal 3.0L Cannula 02/14 2356 98.4 69 18 136/70 96 Nasal Cannula 02/14 2106 83 02/14 2106 83 02/14 1921 95 Nasal 3.0L Cannula 02/14 1748 94 Nasal 3.0L Cannula 02/14 1635 148/70 02/14 1558 98.6 62 18 142/72 95 Nasal 3.0L Cannula Intake & Output 02/15 1600 02/15 0800 02/15 0000 02/14 1600 02/14 0800 02/14 0000 Intake Total 650 1080 400 100 450 Output Total 850 550 750 300 700 Balance -200 530 -350 -200 -250 Intake, IV 600 600 0 0 Intake, Oral 50 480 400 100 450 Number 0 0 Bowel Movements Output, Urine 850 550 750 300 700 Physical Exam: General: WD/obese female in NAD; alert and oriented x 3 Neck: no JVD, no carotid bruit Heart: RRR with 2/6 systolic murmur Lungs: no crackles or wheezing with decreased air movement bilaterally Extremities: no edema, surgical excision of RLE Assessment/Plan Assessment/Plan * Blood pressure and renal function are both improved. It is reasonable to try Losartan at a small dose of 25mg daily with monitoring of her BUN, creatinine and potassium. Continue Labetolol and hydralazine. A diuretic is not recommended at this time. I suspect this patient will have recurrent hypertension on Amlodipine once the Diltiazem wears off since the Amlodipine is a rather weak antihypertensive. If there is concern regarding bradycardia then a better choice would be Nifedipine ER 30mg daily with up-titration as necessary. * In consideration of multiple antihypertensive medications being needed at reasonably high doses I would consider the possibility of renal artery stenosis. A renal ultrasound was non-diagnostic. I would pursue a CT angiogram at this time. Continue telemetry? No
== END 2017-02-15 14:20 | DRG 193 ==
LOC: ENRESERVDT → ENRESERVTM → ERH 12:32 → 1NO 13:41 → ERHI 13:41 → ENPENDDIS 13:41 → EDBEDREQ 14:04 → 1NO 16:24
PROVIDERS: Internal Medicine; Internal Medicine Endocrinology, Diabetes & Metabolism; Physician Assistant; ADMIT Internal Medicine
DX: J11.08 Influenza due to unidentified influenza virus with specified pneumonia (principal); J96.21 Acute and chronic respiratory failure with hypoxia; N17.9 Acute kidney failure, unspecified; Z99.81 Dependence on supplemental oxygen; J44.9 Chronic obstructive pulmonary disease, unspecified; E11.9 Type 2 diabetes mellitus without complications; N39.0 Urinary tract infection, site not specified; E66.01 Morbid (severe) obesity due to excess calories; I10 Essential (primary) hypertension; B95.2 Enterococcus as the cause of diseases classified elsewhere; J18.8 Other pneumonia, unspecified organism; Z68.31 Body mass index [BMI] 31.0-31.9, adult; F11.10 Opioid abuse, uncomplicated; E78.5 Hyperlipidemia, unspecified; Z79.84 Long term (current) use of oral hypoglycemic drugs; Z66 Do not resuscitate; F41.8 Other specified anxiety disorders
CPT/HCPCS: 1NP; 82570; 84133; 84156; 84300; 36415; 76775; 80307; 81001; 82436; 84165; 87040; 87086; 87804; 87804-59; 93005; 93010; 93306; 96360; 96361; 96374; 96375; 97110-GO; 97161-GP; 97530-GO; 99291; J0131; J0360; J0713; J1644; J2405; J2930; J3370; J3490; J7060

== ENCOUNTER 2017-05-03 18:06 | Inpatient (IN) | payer OTHER, MEDICARE ==
[~2017-05-03] VITALS: Ht 170.2 cm; Wt 113.4 kg
[~2017-05-03 18:06] MED LIST: CARDIZEM CD180 M1 PO; HYDRALAZINE HC100 M1 PO; HYDROCHLOROTHIA25 M1 PO; IPRATROPIU0.2 MG/1 M INH/SOL; LABETALOL HCL200 M1 PO; LEVEMIR100 UNIT/1 SC; LEVOTHYROXINE75 MCG PO; LOSARTAN POTAS100 M1 PO; MELOXICAM15 M1 PO; METFORMIN HCL1000 M1 PO; MONTELUKAST SOD10 M1 PO; MONUROL3 G1 PO; NORVASC10 M1 PO; NOVOLOG100 UNIT/2 SC; TRADJENTA5 M1 PO; VICTOZA 2-0.6 MG/0.1 SC
--- NOTE | 2017-05-03 18:40 | NUR ---
PER EMS/ PT JUST , PT WITH HX OF DEPRESSION, REPORTS SELF UNRESPONSIVE, UPON ED ARRIVAL PT NONVERBAL EYES CLOSED, ABLE TO SEMI ASSIST WITH CARE. HX OF OPIATE ABUSE. PT RESIDES AT [facility]. UPON ED ARRIVAL RA SAT 88% TITRATED N/C UP TO 6 AND SATS REMAINED 90-91 ONLY, PLACED BACK ON 100% MASK SATS 96-97. AUD WHEEZES AT APICES.
--- NOTE | 2017-05-03 18:41 | NUR ---
CATHED UPON ARRIVAL FOR CONCENTRATED URINE, TRIO SENT. LABS DRAWN BY THIS MARKETING PROFESSOR MENDOSA, GOLD BLUE AND LAV. ANASTASIA AREA CLEAR NO URINE IN DIAPER.
[2017-05-03 18:53] LABS: ABSOLUTE BASOPHIL COUNT 0 /CUMM (0.0-0.2); ABSOLUTE EOSINOPHIL COUNT 0 /CUMM (0.0-0.7); ABSOLUTE GRANULOCYTE CT 11.6 /CUMM (1.4-6.5); ABSOLUTE LYMPH COUNT 0.8 /CUMM (1.2-3.4); ABSOLUTE MONOCYTE COUNT 0.6 /CUMM (0.10-0.60); BASOPHIL % 0.1 % (0.0-2.0); EOSINOPHIL % 0.1 % (0-5); HEMATOCRIT 33.7 % (37-47); MEAN CORPUSCULAR HGB 27.3 PG (27.0-31.0); MEAN CORPUSCULAR HGB CONC 31.8 G/DL (33.0-37.0); MEAN CORPUSCULAR VOLUME 86.1 FL (81.0-99.0); MEAN PLATELET VOLUME 8.8 FL (7.4-10.4); PLATELET COUNT 237 /CUMM (130-400); RBC DISTRIBUTION WIDTH 15.3 % (11.5-14.5); RED BLOOD CELL CT 3.92 /CUMM (4.20-5.40)
--- NOTE | 2017-05-03 19:02 | NUR ---
CRITICAL TEST RESULTS [id number] RORY ZUNIGA 76 F TESTS AND RESULTS: BLOOD CULTURES X 2 INSUFF Results received and read back by: TALON VALENCIA Results received date and time: 05/03/171901 The following provider was notified of the results, and read the results back: XIAO MARTELL. Notified date and time: 05/03/17 at
--- NOTE | 2017-05-03 19:03 | RADIOLOGY REPORT ---
EXAMINATION: CHEST 1 VIEW CLINICAL INFORMATION: Pneumonia. Fever. COMPARISON: None. TECHNIQUE: An AP view of the chest is provided. FINDINGS: The cardiac silhouette is at the upper limits of normal in size. The mediastinal and hilar contours are unremarkable. There are neither pleural effusions nor pneumothoraces. There are no consolidations. The osseous structures are unremarkable. IMPRESSION: No evidence for acute disease.
[2017-05-03 19:07] LABS: GRANULOCYTE % 89.2 % (42.2-75.2)
[2017-05-03] MEDS ORDERED: ASPIRIN EC81 M1 PO (19:07)
[2017-05-03] MEDS ORDERED: FENTANYL1 EAC2 TOP (19:08)
[2017-05-03] MEDS ORDERED: GABAPENTIN300 M2 PO (19:09)
[2017-05-03] MEDS ORDERED: LEXAPRO20 M1 PO (19:09)
[2017-05-03] MEDS ORDERED: NEURONTIN100 M1 PO (19:09)
[2017-05-03] MEDS ORDERED: NARCAN4 MG NAS (19:10)
[2017-05-03] MEDS ORDERED: LABETALOL HCL200 M1 PO (19:10)
[2017-05-03] MEDS ORDERED: LIPITOR40 M1 PO (19:11)
[2017-05-03] MEDS ORDERED: NORVASC10 M1 PO (19:11)
[2017-05-03] MEDS ORDERED: HYDRALAZINE HC100 M1 PO (19:11)
[2017-05-03] MEDS ORDERED: ALL DAY ALLERGY10 MG PO (19:12)
[2017-05-03] MEDS ORDERED: VITAMIN B-121000 MC3 PO (19:13)
[2017-05-03] MEDS ORDERED: TYLENOL WITH C1 EACH PO (19:14)
[2017-05-03] MEDS ORDERED: CAMBIA50 M1 PO (19:14)
[2017-05-03] MEDS ORDERED: ACEPHEN650 M1 PR (19:14)
[2017-05-03] MEDS ORDERED: ALPRAZOLAM0.5 M4 PO (19:15)
--- NOTE | 2017-05-03 19:15 | NUR ---
REPORT RECIEVED BY SELVIN QUIJANO, ASSUMED PRIMARY CARE AT THIS TIME. RESPIRATORY AT BEDSIDE FOR BIPAP PLACEMENT. FENTANYL PATCH NOTED ON PTS RCW.
[2017-05-03] MEDS ORDERED: ZOFRAN ODT4 M1 SL (19:16)
[2017-05-03] MEDS ORDERED: TRAZODONE HCL50 M1 PO (19:16)
[2017-05-03] MEDS ORDERED: GLUCAGON EMERGEN1 M1 IM (19:17)
[2017-05-03] MEDS ORDERED: MILK OF MA400 MG/52 PO (19:18)
[2017-05-03] MEDS ORDERED: DULCOLAX10 M1 RC (19:18)
--- NOTE | 2017-05-03 19:18 | ED AMS/SEIZURE/WEAK/DIZZY ---
History of Present Illness General Chief Complaint: General Adult Stated Complaint: EVALUATION Source: old records, EMS, W10 Exam Limitations: clinical condition Vital Signs & Intake/Output Vital Signs & Intake/Output Vital Signs Date Time Temp Pulse Resp B/P B/P Pulse O2 O2 Flow FiO2 Mean Ox Delivery Rate 05/04 0616 97.8 88 24 186/90 06/07 0531 97.8 88 24 186/90 96 BIPAP 06/07 0520 69 95 06/07 0500 97.8 72 24 164/97 94 BIPAP 06/07 0430 82 24 170/87 91 BIPAP 06/07 0326 64 91 06/07 0323 65 89 06/07 0225 98.5 70 22 139/67 91 BIPAP 06/07 0020 98.8 71 23 149/82 94 BIPAP 06/07 0011 71 94 06/06 2247 80 95 06/06 2216 99.2 73 24 169/78 95 BIPAP 50% 05/03 1950 99.0 75 20 139/91 90 BIPAP 40% 05/03 1926 83 95 /06 1848 96 Non 100% ReBreather 05/03 1844 98.2 87 28 141/72 95 Non 100% ReBreather ED Intake and Output 05/04 0000 05/03 1200 Intake Total Output Total 50 Balance -50 Output, Urine 50 Patient 245 lb Weight Triage Note: PER EMS/ PT JUST , PT WITH HX OF DEPRESSION, REPORTS SELF UNRESPONSIVE, UPON ED ARRIVAL PT NONVERBAL EYES CLOSED, ABLE TO SEMI ASSIST WITH CARE. HX OF OPIATE ABUSE. Triage Nurses Notes Reviewed? yes Onset: Just prior to arrival Duration: hour(s):, constant, continues in ED Timing: recent history Severity: severe LMP (ages 10-50): post menopausal : No Patient currently breastfeeds: No HPI: Prior to admission patient noted to have decreased mental status responsiveness with fever. EMS report there is a history of narcotic abuse depression after of with decreased responsiveness. She's unable to answer review of systems. (ANTONIO MANCIA MD) Allergies Coded Allergies: Penicillins (UNKNOWN 05/04/17) Sulfa (Sulfonamide Antibiotics) (UNKNOWN 05/04/17) amoxicillin (UNKNOWN 05/04/17) crab (UNKNOWN 05/04/17) erythromycin base (UNKNOWN 05/04/17) potassium iodide (UNKNOWN 05/04/17) Reconcile Medications Acetaminophen (Acephen) 650 MG SUPP.RECT 1 SUPP GA Q4H PRN PAIN/TEMP>101 ( Reported) Alprazolam 0.5 MG TABLET 1 TAB PO BID PRN ANXIETY (Reported) Amlodipine Besylate (Norvasc) 10 MG TABLET 1 TAB PO DAILY BP (Reported) Aspirin (Ecotrin*) 81 MG TABLET.DR 1 TAB PO DAILY HEART/BLOOD (Reported) Atorvastatin Calcium (Lipitor) 40 MG TABLET 1 TAB PO DAILY CHOLESTEROL ( Reported) Bisacodyl (Dulcolax) 10 MG SUPP.RECT 1 SUP RC DAILY PRN CONSTIPATION ( Reported) Cetirizine HCl (Zyrtec) 10 MG TABLET 1 TAB PO DAILY ALLERGIES (Reported) Cyanocobalamin (Vitamin B-12) 1,000 MCG TABLET 1 TAB PO DAILY SUPPLEMENT ( Reported) Diclofenac Potassium ([place]) 50 MG POWD.PACK 1 PAC PO BID PRN MIGRAINES ( Reported) Escitalopram Oxalate (Lexapro) 20 MG TABLET 1 TAB PO DAILY DEPRESSION ( Reported) Fentanyl 25 MCG/HOUR PATCH.TD72 1 PAT TOP Q3D PAIN (Reported) Fish Oil/Borage/Flax/Om3,6,9#1 ([place] 3-6-9 1,200 MG Softgel) 1,200 MG CAPSULE 1 CAP PO DAILY CHOLESTROL (Reported) Gabapentin (Neurontin) 100 MG CAPSULE 200 MG PO 1300 NEUROPATHY (Reported) Gabapentin 300 MG CAPSULE 1 CAP PO BID NEUROPATHY (Reported) Glucagon,Human Recombinant (Glucagon Emergency Kit) 1 MG KIT 1 MG IM AD PRN HYPOGLYCEMIA (Reported) Hydralazine HCl 100 MG TABLET 1 TAB PO BID high blood pressure Ipratropium [place] 0.2 MG/ML (0.02 %) SOLUTION 1 Vial INH/ANTONINO 4 TIMES/DAY PRN COPD (Reported) Ipratropium/Albuterol Sulfate (Iprat-Albut 0.5-3(2.5) MG/3 Ml) 0.5 MG-3 MG (2.5 MG BASE)/3 ML AMPUL.NEB 1 VIAL INH Q4H PRN WHEEZING (Reported) Labetalol HCl 200 MG TABLET 1 TAB PO BID high blood pressure Levothyroxine Sodium 75 MCG TABLET 1 TAB PO DAILY HYPOTHYROID (Reported) Magnesium Hydroxide (Milk Of Magnesia) 400 MG/5 ML ORAL.SUSP 30 ML PO Q3D PRN CONSTIPATION (Reported) Menthol/Herbal Drugs (Cough Drops) 1 EACH LOZENGE 1 MARYLIN PO Q2H PRN COUGH/ THROAT (Reported) Montelukast Sodium 10 MG TABLET 1 TAB PO DAILY COUGH (Reported) Na Phos,M-B/Na Phos,Di-Ba (Fleet Enema) 19 GRAM-7 GRAM/118 ML ENEMA 1 E RC DAILY PRN CONSTIPATION (Reported) Naloxone HCl (Narcan) 4 MG/ACTUATION SPRAY 4 MG FLORINA AD PRN OPIOID INDUCED RESP. DEPRESSIO (Reported) Ondansetron (Zofran Odt) 4 MG TAB.RAPDIS 1 TAB SL Q8H PRN N/V (Reported) Sennosides (Senna) 8.6 MG TABLET 1 TAB PO BID PRN CONSTIPATION (Reported) Sodium Chloride (Saline Nasal [place]) 0.65 % SPRAY 2 SPRAY NASB 4XDAILY PRN DRYNESS (Reported) Trazodone HCl 50 MG TABLET 0.5 TAB PO QHS PRN INSOMNIA (Reported) Tylenol With Codeine (Tylenol With Codeine #3 Tablet) 300 MG-30 MG TABLET 1 TAB PO Q6P PRN PAIN (Reported) (DELILAH ARAGON,XUAN Sampson) Past History Travel History Traveled to [place] past 21 day No Medical History Any Pertinent Medical History? see below for history Neurological: migraine EENT: NONE Cardiovascular: hypertension, hyperlipidemia Respiratory: COPD Gastrointestinal: NONE Hepatic: NONE Renal: NONE Musculoskeletal: osteoarthritis, CHRONIC PAIN Psychiatric: OPIOID ABUSE Endocrine: diabetes Blood Disorders: NONE Cancer(s): NONE History of MRSA: No History of VRE: No History of CDIFF: No Surgical History Surgical History: non-contributory Psychosocial History What is your primary language Filipino Tobacco Use: Cognitive Impairment Family History Family History, If Any: Relation not specified for: FH: diabetes mellitus Hx Contributory? No (ANTONIO MANCIA MD) Review of Systems Review of Systems Constitutional: Reports: see HPI, fever, weakness. Comments Unable to review secondary to condition. (ANTONIO MANCIA MD) Physical Exam Physical Exam General Appearance: well developed/nourished, lethargic, moderate distress, obese Head: atraumatic, normal appearance Eyes: Bilateral: normal appearance, PERRL, EOMI. Ears, Nose, Throat: normal pharynx, normal ENT inspection Neck: normal inspection, supple, full range of motion Respiratory: chest non-tender, decreased breath sounds, rhonchi, wheezing Cardiovascular: regular rate/rhythm, normal peripheral pulses, norml femoral pulses equa Peripheral Pulses: 4+ carotid (R), 4+ carotid (L) Gastrointestinal: normal bowel sounds, soft, non-tender, no organomegaly Back: normal inspection, normal range of motion Extremities: normal range of motion, pedal edema Neurologic/Psych: disoriented x 3, motor/sensory deficits Reflexes: 2+: bicep (R), bicep (L). Skin: intact, normal color, warm/dry Lymphatic: no anterior cervical laura Core Measures ACS in differential dx? No CVA/TIA Diagnosis: No Severe Sepsis Present: No Septic Shock Present: No (BLANCHE ARAGON,ANTONIO) Progress Differential Diagnosis: dehydration, drug intoxication, electrolyte imbalance, hypoxia, pneumonia Plan of Care: Orders Procedure Date/time Status Regular Diet 05/04 B Active Patient Data 05/04 05 Active Discharge Patient 05/04 521 Active Admit to inpatient 05/04 521 Active ARTERIAL BLOOD GAS (GEN) 05/04 0501 Complete BIPAP 05/[address] in observation 05/03 2039 Active Patient Data 05/03 2039 Active Vital Signs 05/03 2039 Active Code Status 05/03 2039 Active BLOOD CULTURE 05/03 2014 Active BIPAP 05/03 191 Complete ARTERIAL BLOOD GAS (GEN) 05/03 1854 Complete Intake & Output 05/03 1843 Active EKG 05/03 1839 Active CULTURE,URINE 05/03 183 Active CULTURE,URINE 05/03 182 Active URINE DRUG SCREEN FOR ER ONLY 05/03 1823 Complete URINALYSIS 05/03 1823 Complete ACETOMINOPHEN 05/03 1823 Complete TROPONIN LEVEL 05/03 1823 Complete SALICYLATE 05/03 1823 Complete MAGNESIUM 05/03 1823 Complete COMPREHENSIVE METABOLIC PANEL 05/03 1823 Complete CBC WITHOUT DIFFERENTIAL 05/03 182 Complete LACTIC ACID 05/03 181 Complete B-TYPE NATRIURETIC PEP (BNP) 05/03 181 Complete BIPAP 05/03 UNK Complete Current Medications Sig/[place] Start time Last Medication Dose Stop Time Status Admin Metoprolol Tartrate 5 MG ONCE ONE 05/04 615 UNVr 05/04 (Lopressor) 05/04 616 0616 Laboratory Tests 05/04/17 0510: pH 7.32 L, pCO2 67 *H, pO2 85, HCO3 34 H, ABG O2 Sat (Measured) 95.0 L, P-50 (Temp Corrected) Y, Carboxyhemoglobin 0.3 L, O2 Concentration % 60%, Temperature 97.8, Respiration Rate 30, O2 Delivery Method VISION-FFM, Vent Mode ST, Expiratory Pressure 6, Inspiratory Pressure 24, Phlebotomy Draw Site RIGHT RADIAL 05/03/17 2240: pH 7.32 L, pCO2 66 *H, pO2 93, HCO3 33 H, ABG O2 Sat (Measured) 95.0 L, P-50 (Temp Corrected) Y, Carboxyhemoglobin 0.3 L, O2 Concentration % 50%, Temperature 99.2, Respiration Rate 28, O2 Delivery Method BIPAP, Vent Mode ST, Expiratory Pressure 6, Inspiratory Pressure 22, Phlebotomy Draw Site RIGHT RADIAL 05/03/17 2134: Lactic Acid Cancelled 05/03/17 1900: pH 7.31 L, pCO2 69 *H, pO2 82, HCO3 34 H, ABG O2 Sat (Measured) 94.0 L, P-50 (Temp Corrected) Y, Carboxyhemoglobin 0.5 L, O2 Concentration % 7L, Temperature 98.3, O2 Delivery Method NEB, Phlebotomy Draw Site RIGHT RADIAL 05/03/17 1834: Lactic Acid Cancelled 05/03/17 1818: Anion Gap 11, Estimated GFR > 60, BUN/Creatinine Ratio 14.4, Glucose 162 H, Lactic Acid 1.0, Calcium 9.3, Magnesium 2.2, Total Bilirubin 0.4, AST 18, ALT 24 , Alkaline Phosphatase 73, Troponin I < 0.01, Gwk-G-[id number] Pept 732 H, Total Protein 6.8, Albumin 4.1, Globulin 2.7, Albumin/Globulin Ratio 1.5, CBC w Diff NO MAN DIFF REQ, RBC 3.92 L, MCV 86.1, MCH 27.3, RDW 15.3 H, MPV 8.8, Gran % 89.2 H, Lymphocytes % 6.3 L, Monocytes % 4.3, Eosinophils % 0.1, Basophils % 0.1, Absolute Granulocytes 11.6 H, Absolute Lymphocytes 0.8 L, Absolute Monocytes 0.6, Absolute Eosinophils 0, Absolute Basophils 0, PUBS MCHC 31.8 L, Salicylates < 1.0, Acetaminophen < 10.0 L 05/03/171809: Urine Opiates Screen > 4000.00 H, Methadone Screen 72, Barbiturate Screen < 60, Ur Phencyclidine Scrn < 6.00, Amphetamines Screen 273, U Benzodiazepines Scrn > 800 H, Urine Cocaine Screen < 50, Urine Cannabis Screen < 5.00, Urinalysis LIGHT H, Urine Color YEL, Urine Clarity TURBD H, Urine pH 5.5, Ur Specific [place] 1.025, Urine Protein TRACE H, Urine Ketones NEG, Urine Nitrite NEG, Urine Bilirubin NEG@ICTO, Urine Urobilinogen 0.2, Ur Leukocyte Esterase LARGE H , Ur Microscopic SEDIMENT EXAMINED, Urine RBC RARE, Urine WBC 25-50 H, Ur Epithelial Cells MOD H, Urine Bacteria MANY H, Urine Mucus MOD H, Micro UA Comment [place] H, Urine Hemoglobin NEG, Urine Glucose NEG Microbiology 05/03 1945 BLOOD: Blood Culture - RECD 05/03 1840 BLOOD: Blood Culture - CAN Cancelled: SPECIMNE INSUFFICIENT QUANITY FOR TESTING 05/03 1834 URINE ROUT: Urine Culture - ORD 05/03 1810 URINE ROUT: Urine Culture - RECD Diagnostic Imaging: Viewed by Me: Radiology Read. Discussed w/RAD: Radiology Read. CXR Impression: no acute abnormality, no infiltrates Initial ED EKG: normal axis, normal intervals, normal p-waves, normal QRS complex, normal sinus rhythm, no ST T wave changes Hand-Off Endorsed To: XUAN MAZARIEGOS MD Endorsed Time: 1916 Pending: labs, other (ANTONIO MANCIA MD) Comments: Final patch was removed the patient was given 0.4 mg IV Narcan. Patient is currently awake alert oriented breathing much better. (XUAN MAZARIEGOS MD) Departure Departure Disposition: STILL A PATIENT Condition: Stable Referrals: ROB HICKS MD (PCP/Family) Departure Forms: Customer Survey General Discharge Information (ANTONIO MANCIA MD) Departure Clinical Impression Primary Impression: Altered mental status Qualifiers: Altered mental status type: unspecified Qualified Code: R41.82 - Altered mental status, unspecified Secondary Impressions: COPD exacerbation Hypercapnic respiratory failure Qualifiers: Chronicity: acute Qualified Code: J96.02 - Acute respiratory failure with hypercapnia Opiate overdose Qualifiers: Encounter type: initial encounter Injury intent: undetermined intent Qualified Code: T40.604A - Poisoning by unspecified narcotics, undetermined, initial encounter Admission Note Spoke With: RAYSA ARAGON,VONDA Documentation of Exam: Documentation of any treatments & extenuating circumstances including Concerns Regarding Discharge (functional status, medication knowledge or non-compliance, living conditions, etc.) that warrant an admission rather than observation: [ BiPAP, IV steroids, nebulizers, pulmonary consultation, IV antibiotics] (DELILAH ARAGON,XUAN Sampson) Critical Care Note Critical Care Note Critical Care Time: mins: (75 MIN) (DELILAH ARAGON,XUAN Sampson) ED Attending Observation Initial Observation Note: I have seen and personally examined RORY ZUNIGA on 05/03/17 at 2039. I agree with the current emergency department documentation. The disposition (admission or discharge) is uncertain at this time, she needs a period of observation for the following reason(s): [Patient isn't hypercarbic respiratory failure and is currently on BiPAP. Patient was given IV Narcan with good results. Patient is currently awake and alert. Patient is breathing much better. Patient had a fentanyl patch which was removed. Patient will be monitored closely here in the emergency department. Once the Narcan wears off she may be somewhat lethargic again. If her symptoms. She will require admission to the hospital however if her symptoms improve she may be discharged back to the senior care.] The ED Nurse caring for this patient has been personally informed as to what the patient is being observed for. Observation Re-Evaluation: I have reevaluated RORY ZUNIGA on 05/03/17 at 2330. The physical findings that support the continued need to observe this patient include [patient wakes up after IV Narcan and then begin to nod off again. Patient's ABG is slightly improved. We'll continue to follow on BiPAP. Repeat ABG in the morning. Patient's recently . If the patient is much more awake we'll have crisis see her in the morning to evaluate depression. If her ABG does not improve then she required admission.]. Observation Discharge: I have reevaluated RORY ZUNIGA on 05/04/17 at 0519. The patient is: (): Stable for discharge ([X]): To be admitted to Nursing Floor (): To be placed in Observation on Nursing Floor (): For transfer to other facility The patient was being observed for [hypercarbic respiratory failure, COPD exacerbation, narcotic overdose] As a result of that observation, I have determined [patient does respond well to IV Narcan however despite changing the BiPAP settings her ABG remains hypercarbic. At this point the patient will be admitted to the medical service with pulmonary consultation.]. (DELILAH ARAGON,XUAN Sampson)
[2017-05-03] MEDS ORDERED: FLEET ENEMA133 ML RC (19:19)
[2017-05-03] MEDS ORDERED: SENNA8.6 M3 PO (19:19)
[2017-05-03] MEDS ORDERED: COUGH DROPS1 EAC1 PO (19:20)
[2017-05-03] MEDS ORDERED: SALINE NASAL SP30 ML NASB (19:21)
[2017-05-03] MEDS ORDERED: IPRAT-ALBUT 0.5-3 ML INH (19:21)
[2017-05-03] MEDS ORDERED: COUGH SYRU100 MG/5 M PO (19:23)
[2017-05-03] MEDS ORDERED: IPRATROPIU0.2 MG/1 M INH/SOL (19:24)
--- NOTE | 2017-05-03 19:24 | NUR ---
BIPAP MACHINE SET AT 22/6, RESPIRATORY RATE 22 AT 40% O2
--- NOTE | 2017-05-03 19:49 | NUR ---
REPEAT OF BLOOD CULTURE #1 SENT
--- NOTE | 2017-05-03 19:55 | NUR ---
BIPAP INCREASED TO 50% O2 BY RESPIRATORY
--- NOTE | 2017-05-03 20:20 | NUR ---
FENTANYL PATCH REMOVED BY VERBAL ORDER FROM .
--- NOTE | 2017-05-03 20:26 | NUR ---
20G IV ESTABLISHED IN LAC. PT MEDICATED WITH 0.4MG NARCAN IVP
--- NOTE | 2017-05-03 20:28 | NUR ---
PT BECOMING INCREASINGLY ALERT. PT'S RESPIRATIONS INCREASING IN DEPTH AND PT ABLE TO SPEAK IN COMPLETE SENTENCES
--- NOTE | 2017-05-03 21:03 | NUR ---
PT BODY SEARCHED, NO ADDITIONAL FENTANYL PATCHES FOUND ON BODY.
--- NOTE | 2017-05-03 21:03 | NUR ---
PT MEDICATED WITH 0.4MG NARCAN AND 125MG SOLUMEDROL PER EMAR. PT WAS INCONTINENT OF STOOL, ANASTASIA CARE PREFORMED, PT CLEANED AND REPOSITIONED. PT RESPONSIVE TO PAINFUL STIMULI, BUT REFUSES TO OPEN EYES. WHEN ATTEMPTING TO OPEN EYELIDS PT SQUEEZES THEM SHUT. PT EDUCATED ON IMPORTANCE OF WAKING UP AND SEEING LEVEL OF CONCIOUSNESS. PT STILL DOES NOT OPEN EYES/ANSWER QUESTIONS
--- NOTE | 2017-05-03 22:19 | NUR ---
RESPIRATORY THERAPIST AT BEDSIDE FOR REPEAT ABG. PT REMAINS ON BIPAP AT 50% O2. O2 SAT 96%. PT STILL ONLY RESPONSIVE TO PAINFUL STIMULI, PT DOES NOT OBEY COMMANDS OR RESPOND WHEN NAME CALLED. PT STILL DOES NOT OPEN EYES
--- NOTE | 2017-05-03 22:56 | NUR ---
PT REMAINS ON BIPAP, RESPIRATORY CHANGED BIPAP TO 24/6, RR INCREASED TO 30, AND PT REMAINS ON 50% O2. PT O2 SAT 95%
--- NOTE | 2017-05-03 23:36 | NUR ---
REPORT RECEIVED. O2 SATURATION 94% ON BIPAP. OPEN EYES UPON CALLING ONLY. NO S/S OF PAIN NOTED.
--- NOTE | 2017-05-04 01:30 | NUR ---
PT ALERT. REPORTS FEELING OK BY NODDING HEAD. O2 SATURATION 95% RA. NO S/S OF PAIN OR DISCOMFORTS. NO S/S OF RESPIRAOTRY DISTRESS/DEPRESSION.
--- NOTE | 2017-05-04 03:32 | NUR ---
PT IN DEEP SLEEP AT THIS TIME. O2 SAT 94% ON BIPAP. HEART RATE 67.
--- NOTE | 2017-05-04 05:28 | NUR ---
PER DR MAZARIEGOS, REPEAT ABG SHOWED NO CHANGE, PT REMAINS ON BiPAP. PT GIVEN 0.4MG OF IV NARCAN DUE TO REMAINING LETHARGIC, PT MORE ALERT AND AROUSABLE AFTER IV NARCAN. PT RESPONDING TO NAME AND ASNWERING QUESTIONS. PT NOTED TO HAVE TREMORS, DR. MAZARIEGOS AWARE. PT GIVEN FORTAZ IV PER eMAR. BC X2 DONE PRIOR TO ABX.
--- NOTE | 2017-05-04 05:43 | History & Physical ---
ALCIRA ARAGON,[facility] 05/04/17 0542: General Information and HPI Allergies/Medications Allergies: Coded Allergies: Penicillins (UNKNOWN 05/04/17) Sulfa (Sulfonamide Antibiotics) (UNKNOWN 05/04/17) amoxicillin (UNKNOWN 05/04/17) crab (UNKNOWN 05/04/17) erythromycin base (UNKNOWN 05/04/17) potassium iodide (UNKNOWN 05/04/17) Past History Travel History Traveled to [place] past 21 day No Medical History Blood Transfusion Hx: No Neurological: migraine EENT: NONE Cardiovascular: hypertension, hyperlipidemia Respiratory: COPD Gastrointestinal: NONE Hepatic: NONE Renal: NONE Musculoskeletal: osteoarthritis, CHRONIC PAIN Psychiatric: OPIOID ABUSE Endocrine: diabetes Blood Disorders: NONE Cancer(s): NONE History of MRSA: No History of VRE: No History of CDIFF: No Surgical History Surgical History: non-contributory Past Family/Social History Family History Relations & Conditions if any Relation not specified for: FH: diabetes mellitus Psychosocial History Smoking Status: Unknown If Ever Smoked Core Measures/Miscellaneous Cerebrovascular Accident CVA/TIA Diagnosis: No Sepsis (View Protocol) Severe Sepsis Present: No BC x2: Yes Lactic Acid x2: Yes IV ABX Broad Spectrum: Yes Septic Shock Septic Shock Present: No COREY MORGAN 05/04/17 0705: General Information and HPI Allergies/Medications Home Med list Acetaminophen (Acephen) 650 MG SUPP.RECT 1 SUPP AR Q4H PRN PAIN/TEMP>101 ( Reported) Alprazolam 0.5 MG TABLET 1 TAB PO BID PRN ANXIETY (Reported) Amlodipine Besylate (Norvasc) 10 MG TABLET 1 TAB PO DAILY BP (Reported) Aspirin (Ecotrin*) 81 MG TABLET.DR 1 TAB PO DAILY HEART/BLOOD (Reported) Atorvastatin Calcium (Lipitor) 40 MG TABLET 1 TAB PO DAILY CHOLESTEROL ( Reported) Bisacodyl (Dulcolax) 10 MG SUPP.RECT 1 SUP RC DAILY PRN CONSTIPATION ( Reported) Cetirizine HCl (Zyrtec) 10 MG TABLET 1 TAB PO DAILY ALLERGIES (Reported) Cyanocobalamin (Vitamin B-12) 1,000 MCG TABLET 1 TAB PO DAILY SUPPLEMENT ( Reported) Diclofenac Potassium ([place]) 50 MG POWD.PACK 1 PAC PO BID PRN MIGRAINES ( Reported) Escitalopram Oxalate (Lexapro) 20 MG TABLET 1 TAB PO DAILY DEPRESSION ( Reported) Fentanyl 25 MCG/HOUR PATCH.TD72 1 PAT TOP Q3D PAIN (Reported) Fish Oil/Borage/Flax/Om3,6,9#1 ([place] 3-6-9 1,200 MG Softgel) 1,200 MG CAPSULE 1 CAP PO DAILY CHOLESTROL (Reported) Gabapentin (Neurontin) 100 MG CAPSULE 200 MG PO 1300 NEUROPATHY (Reported) Gabapentin 300 MG CAPSULE 1 CAP PO BID NEUROPATHY (Reported) Glucagon,Human Recombinant (Glucagon Emergency Kit) 1 MG KIT 1 MG IM AD PRN HYPOGLYCEMIA (Reported) Hydralazine HCl 100 MG TABLET 1 TAB PO BID high blood pressure Ipratropium [place] 0.2 MG/ML (0.02 %) SOLUTION 1 Vial INH/ANTONINO 4 TIMES/DAY PRN COPD (Reported) Ipratropium/Albuterol Sulfate (Iprat-Albut 0.5-3(2.5) MG/3 Ml) 0.5 MG-3 MG (2.5 MG BASE)/3 ML AMPUL.NEB 1 VIAL INH Q4H PRN WHEEZING (Reported) Labetalol HCl 200 MG TABLET 1 TAB PO BID high blood pressure Levothyroxine Sodium 75 MCG TABLET 1 TAB PO DAILY HYPOTHYROID (Reported) Magnesium Hydroxide (Milk Of Magnesia) 400 MG/5 ML ORAL.SUSP 30 ML PO Q3D PRN CONSTIPATION (Reported) Menthol/Herbal Drugs (Cough Drops) 1 EACH LOZ[place]GE 1 [place] PO Q2H PRN COUGH/ THROAT (Reported) Montelukast Sodium 10 MG TABLET 1 TAB PO DAILY COUGH (Reported) Na Phos,M-B/Na Phos,Di-Ba (Fleet Enema) 19 GRAM-7 GRAM/118 ML ENEMA 1 E RC DAILY PRN CONSTIPATION (Reported) Naloxone HCl (Narcan) 4 MG/ACTUATION SPRAY 4 MG FLORINA AD PRN OPIOID INDUCED RESP. DEPRESSIO (Reported) Ondansetron (Zofran Odt) 4 MG TAB.RAPDIS 1 TAB SL Q8H PRN N/V (Reported) Sennosides (Senna) 8.6 MG TABLET 1 TAB PO BID PRN CONSTIPATION (Reported) Sodium Chloride (Saline Nasal [place]) 0.65 % SPRAY 2 SPRAY NASB 4XDAILY PRN DRYNESS (Reported) Trazodone HCl 50 MG TABLET 0.5 TAB PO QHS PRN INSOMNIA (Reported) Tylenol With Codeine (Tylenol With Codeine #3 Tablet) 300 MG-30 MG TABLET 1 TAB PO Q6P PRN PAIN (Reported)
--- NOTE | 2017-05-04 05:58 | NUR ---
HOUSE STAFF AT BEDSIDE FOR PT EVAL
--- NOTE | 2017-05-04 06:01 | NUR ---
RORY ZUNIGA Nurse Note by: DIVINA GREGORIO I agree with the SCREEN ROOM OPERATOR findings/evaluation of this patient's condition. Entered by: DIVINA GREGORIO Date: 05/04/17 Time: 601
[2017-05-04] MEDS ORDERED: LEXAPRO20 M1 PO (06:08)
[2017-05-04] MEDS ORDERED: ZYRTEC10 M3 PO (06:10)
[2017-05-04] MEDS ORDERED: VITAMIN B122500 MC2 PO (06:11)
[2017-05-04] MEDS ORDERED: OMEGA 3-6-9 11200 MG PO (06:11)
--- NOTE | 2017-05-04 06:16 | NUR ---
PT MEDICATED WITH 5MG IV LOPRESSOR FOR BP. BP 186/90 (MANUALLY) AND HR 88. Dr. Dee at bedside for eval
--- NOTE | 2017-05-04 06:29 | NUR ---
BP RESPONDING TO LOPRESSOR, BP 164/70 HR 64 MD AWARE
[2017-05-04 06:52] LABS: ABSOLUTE BASOPHIL COUNT 0 /CUMM (0.0-0.2); ABSOLUTE EOSINOPHIL COUNT 0 /CUMM (0.0-0.7); ABSOLUTE LYMPH COUNT 0.7 /CUMM (1.2-3.4); ABSOLUTE MONOCYTE COUNT 0 /CUMM (0.10-0.60); BASOPHIL % 0.1 % (0.0-2.0); EOSINOPHIL % 0 % (0-5); HEMATOCRIT 32.1 % (37-47); MEAN CORPUSCULAR HGB 27.1 PG (27.0-31.0); MEAN CORPUSCULAR HGB CONC 31.7 G/DL (33.0-37.0); MEAN CORPUSCULAR VOLUME 85.3 FL (81.0-99.0); MEAN PLATELET VOLUME 8.8 FL (7.4-10.4); RED BLOOD CELL CT 3.77 /CUMM (4.20-5.40); WHITE BLOOD CELL COUNT 9.7 /CUMM (4.8-10.8)
--- NOTE | 2017-05-04 06:54 | NUR ---
URINE SAMPLE OBTAINED AND SENT
--- NOTE | 2017-05-04 06:58 | NUR ---
AM LABS DRAWN AND SENT. PT MEDICATED WITH 40MG IV SOLUMEDROL PER eMAR. PT BP 141/67 HR 65 PT SAT 96-98% ON BiPAP PT FINGER STICK 195
--- NOTE | 2017-05-04 07:05 | History & Physical ---
COREY MORGAN 05/04/17 0659: General Information and HPI MD Statement: I have seen and personally examined EFRAINRORY and documented this H&P. The patient is a 76 year old F who presented with a patient stated chief complaint of [increased difficulty and lethargy, SOB, wheezing]. Source of Information: patient, W10 Exam Limitations: clinical condition, poor historian History of Present Illness: 74-year-old female with a past medical history of hyperlipidemia, morbid obesity , opioid abuse, hypothyroidism, IDDM (not on insulin any more b/c of recurrent episodes of hypoglycemia - taken of meds about a month ago) major depressive disorder, COPD dependent on 2 L of oxygen via nasal cannula, was SIB from [facility] after she was found to have sudden onset of lethargy, and acute change in mental status with hypoxia that was not responding to supplemental oxygen. History is obtained from the facility as the patient is lethargic on BiPAP. Speaking with the facility reveals that she was in her usual state of health until yesterday evening when the nurses went in to evaluate the patient and found her to be very lethargic and hypoxic to 87%, febrile to 101F. Her blood pressure was also elevated to 160 systolic. Decision was made to bring her to the ER. Apparently the patient about a month ago however patient had been doing well and there've been no reports of suicidal ideation. Of note patient is up and assist of 1 and is he uses a wheelchair for ambulation at baseline. There seems to be no history of fever, chills, chest pain, palpitations, loss of consciousness, history of fall as per the nursing facility. Of note that medications are being administered by the facility. Allergies/Medications Allergies: Coded Allergies: Penicillins (UNKNOWN 05/04/17) Sulfa (Sulfonamide Antibiotics) (UNKNOWN 05/04/17) amoxicillin (UNKNOWN 05/04/17) crab (UNKNOWN 05/04/17) erythromycin base (UNKNOWN 05/04/17) potassium iodide (UNKNOWN 05/04/17) Home Med list Acetaminophen (Acephen) 650 MG SUPP.RECT 1 SUPP VA Q4H PRN PAIN/TEMP>101 ( Reported) Alprazolam 0.5 MG TABLET 1 TAB PO BID PRN ANXIETY (Reported) Amlodipine Besylate (Norvasc) 10 MG TABLET 1 TAB PO DAILY BP (Reported) Aspirin (Ecotrin*) 81 MG TABLET.DR 1 TAB PO DAILY HEART/BLOOD (Reported) Atorvastatin Calcium (Lipitor) 40 MG TABLET 1 TAB PO DAILY CHOLESTEROL ( Reported) Bisacodyl (Dulcolax) 10 MG SUPP.RECT 1 SUP RC DAILY PRN CONSTIPATION ( Reported) Cetirizine HCl (Zyrtec) 10 MG TABLET 1 TAB PO DAILY ALLERGIES (Reported) Cyanocobalamin (Vitamin B-12) 1,000 MCG TABLET 1 TAB PO DAILY SUPPLEMENT ( Reported) Diclofenac Potassium ([place]) 50 MG POWD.PACK 1 PAC PO BID PRN MIGRAINES ( Reported) Escitalopram Oxalate (Lexapro) 20 MG TABLET 1 TAB PO DAILY DEPRESSION ( Reported) Fentanyl 25 MCG/HOUR PATCH.TD72 1 PAT TOP Q3D PAIN (Reported) Fish Oil/Borage/Flax/Om3,6,9#1 (Scarbro 3-6-9 1,200 MG Softgel) 1,200 MG CAPSULE 1 CAP PO DAILY CHOLESTROL (Reported) Gabapentin (Neurontin) 100 MG CAPSULE 200 MG PO 1300 NEUROPATHY (Reported) Gabapentin 300 MG CAPSULE 1 CAP PO BID NEUROPATHY (Reported) Glucagon,Human Recombinant (Glucagon Emergency Kit) 1 MG KIT 1 MG IM AD PRN HYPOGLYCEMIA (Reported) Hydralazine HCl 100 MG TABLET 1 TAB PO BID high blood pressure Ipratropium [place] 0.2 MG/ML (0.02 %) SOLUTION 1 Vial INH/ANTONINO 4 TIMES/DAY PRN COPD (Reported) Ipratropium/Albuterol Sulfate (Iprat-Albut 0.5-3(2.5) MG/3 Ml) 0.5 MG-3 MG (2.5 MG BASE)/3 ML AMPUL.NEB 1 VIAL INH Q4H PRN WHEEZING (Reported) Labetalol HCl 200 MG TABLET 1 TAB PO BID high blood pressure Levothyroxine Sodium 75 MCG TABLET 1 TAB PO DAILY HYPOTHYROID (Reported) Magnesium Hydroxide (Milk Of Magnesia) 400 MG/5 ML ORAL.SUSP 30 ML PO Q3D PRN CONSTIPATION (Reported) Menthol/Herbal Drugs (Cough Drops) 1 EACH LOZENGE 1 MARYLIN PO Q2H PRN COUGH/ THROAT (Reported) Montelukast Sodium 10 MG TABLET 1 TAB PO DAILY COUGH (Reported) Na Phos,M-B/Na Phos,Di-Ba (Fleet Enema) 19 GRAM-7 GRAM/118 ML ENEMA 1 E RC DAILY PRN CONSTIPATION (Reported) Naloxone HCl (Narcan) 4 MG/ACTUATION SPRAY 4 MG FLORINA AD PRN OPIOID INDUCED RESP. DEPRESSIO (Reported) Ondansetron (Zofran Odt) 4 MG TAB.RAPDIS 1 TAB SL Q8H PRN N/V (Reported) Sennosides (Senna) 8.6 MG TABLET 1 TAB PO BID PRN CONSTIPATION (Reported) Sodium Chloride (Saline Nasal [place]) 0.65 % SPRAY 2 SPRAY NASB 4XDAILY PRN DRYNESS (Reported) Trazodone HCl 50 MG TABLET 0.5 TAB PO QHS PRN INSOMNIA (Reported) Tylenol With Codeine (Tylenol With Codeine #3 Tablet) 300 MG-30 MG TABLET 1 TAB PO Q6P PRN PAIN (Reported) Past History Travel History Traveled to [place] past 21 day No Medical History Blood Transfusion Hx: No Neurological: migraine EENT: NONE Cardiovascular: hypertension, hyperlipidemia Respiratory: COPD (on 2.0 liters of O2) Gastrointestinal: NONE Hepatic: NONE Renal: NONE Musculoskeletal: osteoarthritis, CHRONIC PAIN Psychiatric: OPIOID ABUSE Endocrine: diabetes Blood Disorders: NONE Cancer(s): NONE History of MRSA: No History of VRE: No History of CDIFF: No Surgical History Surgical History: non-contributory Past Family/Social History Family History Relations & Conditions if any Relation not specified for: FH: diabetes mellitus Psychosocial History Where do you live? Assisted Living Who Do You Live With? self Primary Language: Qatari Smoking Status: Unknown If Ever Smoked ETOH Use: not known Review of Systems Review of Systems Constitutional: Denies: chills, fever. EENTM: Denies: visual changes. Cardiovascular: Denies: chest pain, orthopena, palpitations, peripheral edema. Respiratory: Reports: cough, short of breath, sputum production, wheezing. GI: Denies: abdominal pain, constipation, diarrhea, nausea, vomiting. Genitourinary: Reports: no symptoms. Musculoskeletal: Reports: no symptoms. Neurological/Psychological: Denies: headache, numbness, tingling, tremors. Exam & Diagnostic Data Last 24 Hrs of Vital Signs/I&O Vital Signs Date Time Temp Pulse Resp B/P B/P Pulse O2 O2 Flow FiO2 Mean Ox Delivery Rate 05/04 0653 99.6 66 22 141/67 98 BIPAP 06/07 0630 99.2 64 24 164/70 98 BIPAP 06/07 0616 97.8 88 24 186/90 06/07 0531 98.8 88 24 186/90 96 BIPAP 06/07 0520 69 95 06/07 0500 97.8 72 24 164/97 94 BIPAP 06/07 0430 82 24 170/87 91 BIPAP 06/07 0326 64 91 06/07 0323 65 89 06/07 0225 98.5 70 22 139/67 91 BIPAP 06/07 0020 98.8 71 23 149/82 94 BIPAP 06/07 0011 71 94 06/06 2247 80 95 06/06 2216 99.2 73 24 169/78 95 BIPAP 50% /06 1950 99.0 75 20 139/91 90 BIPAP 40% /06 1926 83 95 /06 1848 96 Non 100% ReBreather 05/03 1844 98.2 87 28 141/72 95 Non 100% ReBreather Intake & Output 05/04 0800 05/04 0000 05/03 1600 Intake Total Output Total 50 Balance -50 Output, Urine 50 Patient 245 lb Weight Physical Exam General Appearance DROWSY, BUT AROUSABLE. Skin Temp/Moisture Exam: Warm/Dry Sepsis Skin Exam (color): Normal for Ethnicity HEENT Atraumatic, PERRLA, EOMI, dry mucous membranes Neck Supple, No JVD, No thryomegaly Cardiovascular Regular Rate, Normal S1, Normal S2, decrased brath sounds Lungs b/l wheezes Abdomen Normal Bowel Sounds, Soft, No Tenderness, umbilical protusion Extremities b/l lower extremity 2+ edema; has a scar on his LLE; LLE>>RLE Vascular Normal Pulses, Pulses Symmetrical Sepsis Peripheral Pulse Location: Dorsalis Pedis Sepsis Peripheral Pulse Exam: Normal Sepsis Cap Refill Exam: <2 Sec Last 24 Hrs of Labs/[place]: Laboratory Tests 05/04/17 0640: Sodium Pending, Potassium Pending, Chloride Pending, Carbon Dioxide Pending, Anion Gap Pending, BUN Pending, Creatinine Pending, BUN/Creatinine Ratio Pending , Iron Pending, TIBC Pending, Ferritin Pending, TSH Pending, Free T4 Pending, CBC w Diff Pending, WBC Pending, RBC Pending, Hgb Pending, Hct Pending, MCV Pending, MCH Pending, RDW Pending, Plt Count Pending, MPV Pending, Gran % Pending, Lymphocytes % Pending, Monocytes % Pending, Eosinophils % Pending, Basophils % Pending, Absolute Granulocytes Pending, Absolute Lymphocytes Pending , Absolute Monocytes Pending, Absolute Eosinophils Pending, Absolute Basophils Pending, PUBS MCHC Pending 05/04/17 0510: pH 7.32 L, pCO2 67 *H, pO2 85, HCO3 34 H, ABG O2 Sat (Measured) 95.0 L, P-50 (Temp Corrected) Y, Carboxyhemoglobin 0.3 L, O2 Concentration % 60%, Temperature 97.8, Respiration Rate 30, O2 Delivery Method VISION-FFM, Vent Mode ST, Expiratory Pressure 6, Inspiratory Pressure 24, Phlebotomy Draw Site RIGHT RADIAL 05/03/17 2240: pH 7.32 L, pCO2 66 *H, pO2 93, HCO3 33 H, ABG O2 Sat (Measured) 95.0 L, P-50 (Temp Corrected) Y, Carboxyhemoglobin 0.3 L, O2 Concentration % 50%, Temperature 99.2, Respiration Rate 28, O2 Delivery Method BIPAP, Vent Mode ST, Expiratory Pressure 6, Inspiratory Pressure 22, Phlebotomy Draw Site RIGHT RADIAL 05/03/17 2134: Lactic Acid Cancelled 05/03/17 1900: pH 7.31 L, pCO2 69 *H, pO2 82, HCO3 34 H, ABG O2 Sat (Measured) 94.0 L, P-50 (Temp Corrected) Y, Carboxyhemoglobin 0.5 L, O2 Concentration % 7L, Temperature 98.3, O2 Delivery Method NEB, Phlebotomy Draw Site RIGHT RADIAL 05/03/17 1834: Lactic Acid Cancelled 05/03/17 1818: Anion Gap 11, Estimated GFR > 60, BUN/Creatinine Ratio 14.4, Glucose 162 H, Lactic Acid 1.0, Calcium 9.3, Magnesium 2.2, Total Bilirubin 0.4, AST 18, ALT 24 , Alkaline Phosphatase 73, Troponin I < 0.01, Agu-K-Llyxjmpjbmt Pept 732 H, Total Protein 6.8, Albumin 4.1, Globulin 2.7, Albumin/Globulin Ratio 1.5, CBC w Diff NO MAN DIFF REQ, RBC 3.92 L, MCV 86.1, MCH 27.3, RDW 15.3 H, MPV 8.8, Gran % 89.2 H, Lymphocytes % 6.3 L, Monocytes % 4.3, Eosinophils % 0.1, Basophils % 0.1, Absolute Granulocytes 11.6 H, Absolute Lymphocytes 0.8 L, Absolute Monocytes 0.6, Absolute Eosinophils 0, Absolute Basophils 0, PUBS MCHC 31.8 L, Salicylates < 1.0, Acetaminophen < 10.0 L 05/03/171809: Urine Opiates Screen > 4000.00 H, Methadone Screen 72, Barbiturate Screen < 60, Ur Phencyclidine Scrn < 6.00, Amphetamines Screen 273, U Benzodiazepines Scrn > 800 H, Urine Cocaine Screen < 50, Urine Cannabis Screen < 5.00, Urinalysis LIGHT H, Urine Color YEL, Urine Clarity TURBD H, Urine pH 5.5, Ur Specific [place] 1.025, Urine Protein TRACE H, Urine Ketones NEG, Urine Nitrite NEG, Urine Bilirubin NEG@ICTO, Urine Urobilinogen 0.2, Ur Leukocyte Esterase LARGE H , Ur Microscopic SEDIMENT EXAMINED, Urine RBC RARE, Urine WBC 25-50 H, Ur Epithelial Cells MOD H, Urine Bacteria MANY H, Urine Mucus MOD H, Micro UA Comment BUDDING YEAST H, Urine Hemoglobin NEG, Urine Glucose NEG Microbiology 05/04 650 URINE ROUT: Legionella Antigen - RECD 05/04 650 URINE ROUT: Streptococcus pneumoniae Antigen (M - RECD 05/04 621 LOWER RESP: Respiratory Culture - ORD 05/04 621 LOWER RESP: Gram Stain - ORD 05/03 194 BLOOD: Blood Culture - RECD 05/03 184 BLOOD: Blood Culture - CAN Cancelled: SPECIMNE INSUFFICIENT QUANITY FOR TESTING 05/03 183 URINE ROUT: Urine Culture - ORD 05/03 1810 URINE ROUT: Urine Culture - RECD Diagnostic Data EKG Results NSR, normal axis, HR: 83, no ST-T changes. CXR Results FINDINGS: The cardiac silhouette is at the upper limits of normal in size. The mediastinal and hilar contours are unremarkable. There are neither pleural effusions nor pneumothoraces. There are no consolidations. The osseous structures are unremarkable. IMPRESSION: No evidence for acute disease. Assessment/Plan Assessment: In summary, this is a 74-year-old female with a past medical history of hyperlipidemia, morbid obesity, opioid abuse, hypothyroidism, IDDM (not on insulin any more b/c of recurrent episodes of hypoglycemia - taken of meds about a month ago) major depressive disorder, COPD dependent on 2 L of oxygen via nasal cannula, was SIB from [facility] after she was found to have sudden onset of lethargy, and acute change in mental status with hypoxia that was not responding to supplemental oxygen. Vitals at the time of admission blood pressure of 186/90, respiratory rate of 24 , pulse 88, afebrile saturating 96% on BiPAP. On physical exam she is lethargic, drowsy but arousable. HEENT revealed PERRLA, dry mucous membranes. Examination of the neck did not reveal elevated JVD or cervical lymphadenopathy. Respiratory exam pertinent for bilateral wheezes. Cardiovascular exam pertinent for normal S1, S2, muffled heart sounds. Abdominal exam is benign abdomen soft, nontender, nondistended, positive in all 4 quadrants. Examination of the lower extremities revealed that the right lower extremities greater than left lower extremity with some lesions on the left right lower extremity. There is 2+ bilateral edema. Labs were pertinent for leukocytosis with a white blood cell count of 13,000, normocytic anemia with an H&H of 10.7/33.7, normal MCV of 86.1 and a platelet count 237,000. Serum chemistries pertinent for sodium of 138, potassium of 5.2, bicarbonate of 34, anion gap of 11, BUN 13 with a creatinine of 0.9. Blood gas pertinent for respiratory acidosis with a pH of 7.31, PCO2 of 69 and a PO2 of 82. UA revealed trace MR proteinuria, positive for leukocyte esterase, 25-50 white blood cells and moderate amount of epithelial cells. U tox positive for urine opiates as well as benzos. ProBNP elevated at 732. First set of troponin negative at less than 0.01 Chest x-ray show neither pleural effusions or pneumothoraces, no consolidations. EKG showed normal sinus rhythm, normal axis, heart rate of 83, no ST-T changes. Echo done in January 2017 showed normal left ventricular ejection fraction of 65% with diastolic filling pattern In the ER she received Narcan 4 mg 3, Medrol 125 mg IV 1, treatment with albuterol and ipratropium. Assessment and plan Admit patient to telemetry, given NPO status, hypertension #Acute hypoxemic, hypercarbic respiratory failure Most likely secondary to COPD exacerbation versus pneumonia (was febrile to 101F at the facility, hypoxic to 87%) versus pulmonary embolism vs respiratory depression from pain meds. Obtain LE dopplers to R/O DVT Start her on Vanc and Ceftaz for HCAP. F/U [facility], urinary antigen for strep pneumo and legionella. TRC/NEBS F/U repeat ABG, if does not improve low threshold for transfer to ICU NPO for now, mainatin on aspiration precautions. Pulm consult with Dr. Ritter has been placed. F/U recs. Continue to hold all narcotics including Fentanyl patch, Tyelenol with Codiene. Checked CT SASH ASSEMBLER - will call her pharmacy to confirm who has been supplying these medications. #HTN - Holding all antihypertensive meds given she is on BiPAP - Recived IV lopressor 5mg x1 - Resume ASA 81 mg daily, Labetolol 200 daily, Amlodipine 10mg daily anad hydralazine 100mg TID once off BiPaP and able to tolerate orally. - Vitals q shift # Normocytic anemia - Most likey 2/2 iron deficiency vs anemia of chronic disease. - F/U iron studies, stool guaic. #Hypothyroidism - F/U TSH, FT4 - Will place on IV Levothyroxine 0.0375 - Resume Levothyroxine 0.75mcg daily PO #Neuropathy - Holding Gabapentin 300MG in am and bedtime and 200mg in afternoon. #HLP - Holding Atorvasatin 40mg daily #Anxiety - Holding Alprazolam 0.5mg BID PO # Depression - Holding Lexapro 20mg daily PO - Denies SI/HI - DVT prophylaxis - Hparin 5000IU TID SC - Diet - NPO for now - Code Status - DNR/DNI As Ranked By This Provider Problem List: 1. Hypercapnic respiratory failure Qualifiers Chronicity: acute Qualified Code: J96.02 - Acute respiratory failure with hypercapnia 2. Altered mental status Qualifiers Altered mental status type: unspecified Qualified Code: R41.82 - Altered mental status, unspecified Core Measures/Miscellaneous Acute Coronary Syndrome ACS Diagnosis: No Cerebrovascular Accident CVA/TIA Diagnosis: No Congestive Heart Failure CHF Diagnosis: No VTE (View Protocol) VTE Risk Factors: Age > 40 [facility] VTE prophylaxis d/t: No contraindications No VTE Pharm Prophylaxis d/t: No contraindications VTE Diagnosis: No VTE Type: NONE VTE Confirmed by (Test): NONE Sepsis (View Protocol) Severe Sepsis Present: No BC x2: Yes Lactic Acid x2: Yes IV ABX Broad Spectrum: Yes Septic Shock Septic Shock Present: No Miscellaneous Documentation Attending Case Discussed With: DELILAH ARAGON,XUAN Sampson Primary Care Physician: ROB HICKS MD Patient sees these Specialists Unknown Level of Patient Care: Telemetry Consults Needed: Consulting Specialty: Pulmonary Disease Resident Review Statement Resident Statement: ADMITTED BY RESIDENT MAURO BURKS MD 05/04/17 1302: Attending MD Review Statement Attending Statement Attending MD Statement: examined this patient, discuss w/resident/PA[facility], agreed w/resident/[facility], reviewed EMR data (avail), discussed with nursing, discussed with case mgmt, amended to note Attending Assessment/Plan: 74-year-old female with history of morbid obesity, oxygen dependent COPD, depression and diabetes mellitus no longer on insulin therapy due to episodes of hypoglycemia. She was brought in by ambulance from [facility] with complaints of fever, hypoxia saturating 87% on oxygen supplementation and increased lethargy and change in mental status. In the emergency room she was found with markedly diminished mentation. ABG showed acidosis with CO2 retention. She was placed on BiPAP therapy a monitored overnight. She was also given Narcan due to urine toxicology being positive for opiates. She had slight improvement in her mental status overnight and was referred for admission to the inpatient medical service. Upon evaluation in the emergency room patient is currently more awake but still lethargic. She is confused asking for who reportedly about a month ago. She moves all extremities spontaneously and to command. She however answers questions inappropriately on occasion. Gen. appearance: Obese, not in acute distress. Heart: S1-S2 regular Lungs: Fair entry bilaterally with no added sounds Abdomen: Obese, soft, nontender with normal bowel sounds Extremities: 1+ pedal edema bilaterally. She has an extensive scar on right lower extremity. Neurologic: Alert and oriented 3 with periods of confusion. Problems: 1. Acute hypercapnic respiratory failure 2. Altered mental status; likely secondary to delirium. Patient has underlying history of major depression. 3. Query pain syndrome. Patient is on fentanyl patch and Tylenol 3 from the [facility]. She was not on this regimen when discharged from here in January. Recommendations: -Admit to the inpatient medical service. -Given her nothing by mouth status as she is on BiPAP therapy she will be placed on telemetry for intravenous antihypertensive medications for blood control. -Patient is currently awake, mild agitated, confused. Follow-up with the pulmonary service regarding continuation of BiPAP therapy. -Given her current agitation she may require sedatives for behavioral control. Recommend consult with psychiatry service. Her confusion be related to delirium secondary to her acute respiratory failure. However when she was discharged in January she was not on benzodiazepine therapy, Lexapro on Neurontin. Head CT shows no acute pathology. Review of records from her last admission show periods of anxiety during the hospital stay. -There is no evidence of an infectious process at present. She has been afebrile here, leukocytosis on admission has resolved overnight. Chest x-ray shows no acute infiltrate. Urine cultures negative for nitrites. It is prudent to monitor her off antibiotic therapy for now and follow culture results. -She appears dehydrated clinically. She has an elevated BUN/creatinine. Hydrate with D5 half normal saline at 100 mL an hour while nothing by mouth. -While nothing by mouth control blood pressure with hydralazine when necessary. -Resume antihypertensive medications orally once she is off BiPAP therapy.
[2017-05-04 07:10] LABS: GRANULOCYTE % 92.4 % (42.2-75.2); PLATELET COUNT 224 /CUMM (130-400)
--- NOTE | 2017-05-04 07:30 | NUR ---
ASSUMED CARE OF PT WHO IS ON BIPAP 97% O2 SAT. PT CURRENTLY SLEEPING. WILL CTM
[2017-05-04 07:32] VITALS: BP 126/60
--- NOTE | 2017-05-04 07:45 | NUR ---
PT OPENS EYES WITH TACTILE STIMULAI BUT DOES NOT ANSWER QUESTIONS FOR THIS BODY TRIMMER
--- NOTE | 2017-05-04 07:50 | NUR ---
PT HAS LARGE REDDENED AREA TO CENTER OF CHEST
--- NOTE | 2017-05-04 08:05 | NUR ---
U/S AT BEDSIDE FOR B/L DOPPLER. RT AT BEDSIDE FOR BG
--- NOTE | 2017-05-04 08:32 | ULTRASOUND REPORT ---
EXAMINATION: US TRIPLEX OF LOWER EXTREMITIES, BILATERAL CLINICAL INFORMATION: Suspected deep venous thrombosis. Swelling of the lower extremities, right greater than left. COMPARISON: No relevant prior imaging is available. TECHNIQUE: Color-flow triplex imaging with spectral analysis and compression Doppler were performed on the lower extremities. FINDINGS: The visualized common femoral vein, superficial femoral vein, profunda femoral vein, popliteal vein and midcalf peroneal and posterior tibial venous segments show no evidence of deep venous thrombosis. IMPRESSION: Normal triplex scan. No evidence of deep venous thrombosis within either of the lower extremities.
--- NOTE | 2017-05-04 08:45 | NUR ---
RT AT BEDSIDE FOR NEB TX AND SUCTIONING
--- NOTE | 2017-05-04 09:36 | Cons- Pulmonary ---
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 History is obtained from the facility as the patient is lethargic on BiPAP. Speaking with the facility reveals that she was in her usual state of health until yesterday evening when the nurses went in to evaluate the patient and found her to be very lethargic and hypoxic to 87%, febrile to 101F. Her blood pressure was also elevated to 160 systolic. Decision was made to bring her to the ER. Apparently the patient about a month ago however patient had been doing well and there've been no reports of suicidal ideation. Of note patient is up and assist of 1 and is he uses a wheelchair for ambulation at baseline. There seems to be no history of fever, chills, chest pain, palpitations, loss of consciousness, history of fall as per the nursing facility. Of note that medications are being administered by the facility. Since coming to the er she was somnolent and now when I saw her was more awake and was AAO x 3 Still sleepy however Allergies/Medications Allergies: Coded Allergies: Penicillins (UNKNOWN 05/04/17) Sulfa (Sulfonamide Antibiotics) (UNKNOWN 05/04/17) amoxicillin (UNKNOWN 05/04/17) crab (UNKNOWN 05/04/17) erythromycin base (UNKNOWN 05/04/17) potassium iodide (UNKNOWN 05/04/17) Home Med List: Acetaminophen (Acephen) 650 MG SUPP.RECT 1 SUPP MO Q4H PRN PAIN/TEMP>101 ( Reported) Alprazolam 0.5 MG TABLET 1 TAB PO BID PRN ANXIETY (Reported) Amlodipine Besylate (Norvasc) 10 MG TABLET 1 TAB PO DAILY BP (Reported) Aspirin (Ecotrin*) 81 MG TABLET.DR 1 TAB PO DAILY HEART/BLOOD (Reported) Atorvastatin Calcium (Lipitor) 40 MG TABLET 1 TAB PO DAILY CHOLESTEROL ( Reported) Bisacodyl (Dulcolax) 10 MG SUPP.RECT 1 SUP RC DAILY PRN CONSTIPATION ( Reported) Cetirizine HCl (Zyrtec) 10 MG TABLET 1 TAB PO DAILY ALLERGIES (Reported) Cyanocobalamin (Vitamin B-12) 1,000 MCG TABLET 1 TAB PO DAILY SUPPLEMENT ( Reported) Diclofenac Potassium ([place]) 50 MG POWD.PACK 1 PAC PO BID PRN MIGRAINES ( Reported) Escitalopram Oxalate (Lexapro) 20 MG TABLET 1 TAB PO DAILY DEPRESSION ( Reported) Fentanyl 25 MCG/HOUR PATCH.TD72 1 PAT TOP Q3D PAIN (Reported) Fish Oil/Borage/Flax/Om3,6,9#1 ([place] 3-6-9 1,200 MG Softgel) 1,200 MG CAPSULE 1 CAP PO DAILY CHOLESTROL (Reported) Gabapentin (Neurontin) 100 MG CAPSULE 200 MG PO 1300 NEUROPATHY (Reported) Gabapentin 300 MG CAPSULE 1 CAP PO BID NEUROPATHY (Reported) Glucagon,Human Recombinant (Glucagon Emergency Kit) 1 MG KIT 1 MG IM AD PRN HYPOGLYCEMIA (Reported) Hydralazine HCl 100 MG TABLET 1 TAB PO BID high blood pressure Ipratropium [place] 0.2 MG/ML (0.02 %) SOLUTION 1 Vial INH/ANTONINO 4 TIMES/DAY PRN COPD (Reported) Ipratropium/Albuterol Sulfate (Iprat-Albut 0.5-3(2.5) MG/3 Ml) 0.5 MG-3 MG (2.5 MG BASE)/3 ML AMPUL.NEB 1 VIAL INH Q4H PRN WHEEZING (Reported) Labetalol HCl 200 MG TABLET 1 TAB PO BID high blood pressure Levothyroxine Sodium 75 MCG TABLET 1 TAB PO DAILY HYPOTHYROID (Reported) Magnesium Hydroxide (Milk Of Magnesia) 400 MG/5 ML ORAL.SUSP 30 ML PO Q3D PRN CONSTIPATION (Reported) Menthol/Herbal Drugs (Cough Drops) 1 EACH LOZENGE 1 MARYLIN PO Q2H PRN COUGH/ THROAT (Reported) Montelukast Sodium 10 MG TABLET 1 TAB PO DAILY COUGH (Reported) Na Phos,M-B/Na Phos,Di-Ba (Fleet Enema) 19 GRAM-7 GRAM/118 ML ENEMA 1 E RC DAILY PRN CONSTIPATION (Reported) Naloxone HCl (Narcan) 4 MG/ACTUATION SPRAY 4 MG FLORINA AD PRN OPIOID INDUCED RESP. DEPRESSIO (Reported) Ondansetron (Zofran Odt) 4 MG TAB.RAPDIS 1 TAB SL Q8H PRN N/V (Reported) Sennosides (Senna) 8.6 MG TABLET 1 TAB PO BID PRN CONSTIPATION (Reported) Sodium Chloride (Saline Nasal [place]) 0.65 % SPRAY 2 SPRAY NASB 4XDAILY PRN DRYNESS (Reported) Trazodone HCl 50 MG TABLET 0.5 TAB PO QHS PRN INSOMNIA (Reported) Tylenol With Codeine (Tylenol With Codeine #3 Tablet) 300 MG-30 MG TABLET 1 TAB PO Q6P PRN PAIN (Reported) Review of Systems Comments Review of Systems Constitutional: Denies: chills, fever. EENTM: Denies: visual changes. Cardiovascular: Denies: chest pain, orthopena, palpitations, peripheral edema. Respiratory: Reports: cough, short of breath, sputum production, wheezing. GI: Denies: abdominal pain, constipation, diarrhea, nausea, vomiting. Genitourinary: Reports: no symptoms. Musculoskeletal: Reports: no symptoms. Neurological/Psychological: Denies: headache, numbness, tingling, tremors. Past History Travel History Traveled to [place] past 21 day No Medical History Blood Transfusion Hx: No Neurological: migraine EENT: NONE Cardiovascular: hypertension, hyperlipidemia Respiratory: COPD (on 2.0 liters of O2) Gastrointestinal: NONE Hepatic: NONE Renal: NONE Musculoskeletal: osteoarthritis, CHRONIC PAIN Psychiatric: OPIOID ABUSE Endocrine: diabetes Blood Disorders: NONE Cancer(s): NONE Surgical History Surgical History: non-contributory Family History Relations & Conditions If Any: Relation not specified for: FH: diabetes mellitus Psychosocial History Where Do You Live? Assisted Living Who Do You Live With? self Primary Language: Polish Smoking Status: Unknown If Ever Smoked ETOH Use: not known Exam & Diagnostic Data Last 24 Hrs of Vital Signs/I&O Vital Signs Date Time Temp Pulse Resp B/P B/P Pulse O2 O2 Flow FiO2 Mean Ox Delivery Rate 05/04 0732 99.6 61 20 126/60 97 BIPAP 05/04 0653 99.6 66 22 141/67 98 BIPAP 05/04 0630 99.2 64 24 164/70 98 BIPAP 05/04 0616 97.8 88 24 186/90 05/04 0531 98.8 88 24 186/90 96 BIPAP 06/07 0520 69 95 06/07 0500 97.8 72 24 164/97 94 BIPAP 06/07 0430 82 24 170/87 91 BIPAP 06/07 0326 64 91 06/07 0323 65 89 06/07 0225 98.5 70 22 139/67 91 BIPAP 06/07 0020 98.8 71 23 149/82 94 BIPAP 06/07 0011 71 94 06/06 2247 80 95 /06 2216 99.2 73 24 169/78 95 BIPAP 50% 05/03 1950 99.0 75 20 139/91 90 BIPAP 40% / 1926 83 95 / 1848 96 Non 100% ReBreather 05/03 1844 98.2 87 28 141/72 95 Non 100% ReBreather Intake & Output 05/04 1600 05/04 0800 06 0000 Intake Total Output Total 50 Balance -50 Output, Urine 50 Patient 245 lb Weight Last 48 Hrs of Labs/[place]: Laboratory Tests 05/04/17 0810: pH 7.34 L, pCO2 61 *H, pO2 122 H, HCO3 32 H, ABG O2 Sat (Measured) 97.0, Carboxyhemoglobin 0.3 L, O2 Concentration % 60%, Respiration Rate 30, O2 Delivery Method VISION, Vent Mode ST, Expiratory Pressure 6, Inspiratory Pressure 24, Phlebotomy Draw Site LEFT RADIAL 05/04/17 0640: Anion Gap 9, Estimated GFR 49 L, BUN/Creatinine Ratio 19.1, Iron 38, TIBC 317, Ferritin 24.6, TSH 1.010, Free T4 1.12, CBC w Diff NO MAN DIFF REQ, RBC 3.77 L, MCV 85.3, MCH 27.1, RDW 15.0 H, MPV 8.8, Gran % 92.4 H, Lymphocytes % 7.1 L, Monocytes % 0.4 L, Eosinophils % 0, Basophils % 0.1, Absolute Granulocytes 9.0 H, Absolute Lymphocytes 0.7 L, Absolute Monocytes 0 L, Absolute Eosinophils 0, Absolute Basophils 0, PUBS MCHC 31.7 L 05/04/17 0510: pH 7.32 L, pCO2 67 *H, pO2 85, HCO3 34 H, ABG O2 Sat (Measured) 95.0 L, P-50 (Temp Corrected) Y, Carboxyhemoglobin 0.3 L, O2 Concentration % 60%, Temperature 97.8, Respiration Rate 30, O2 Delivery Method VISION-FFM, Vent Mode ST, Expiratory Pressure 6, Inspiratory Pressure 24, Phlebotomy Draw Site RIGHT RADIAL 05/03/17 2240: pH 7.32 L, pCO2 66 *H, pO2 93, HCO3 33 H, ABG O2 Sat (Measured) 95.0 L, P-50 (Temp Corrected) Y, Carboxyhemoglobin 0.3 L, O2 Concentration % 50%, Temperature 99.2, Respiration Rate 28, O2 Delivery Method BIPAP, Vent Mode ST, Expiratory Pressure 6, Inspiratory Pressure 22, Phlebotomy Draw Site RIGHT RADIAL 05/03/17 2134: Lactic Acid Cancelled 05/03/17 1900: pH 7.31 L, pCO2 69 *H, pO2 82, HCO3 34 H, ABG O2 Sat (Measured) 94.0 L, P-50 (Temp Corrected) Y, Carboxyhemoglobin 0.5 L, O2 Concentration % 7L, Temperature 98.3, O2 Delivery Method NEB, Phlebotomy Draw Site RIGHT RADIAL 05/03/17 1834: Lactic Acid Cancelled 05/03/17 1818: Anion Gap 11, Estimated GFR > 60, BUN/Creatinine Ratio 14.4, Glucose 162 H, Lactic Acid 1.0, Calcium 9.3, Magnesium 2.2, Total Bilirubin 0.4, AST 18, ALT 24 , Alkaline Phosphatase 73, Troponin I < 0.01, Oxe-F-Ohlhhtkihvz Pept 732 H, Total Protein 6.8, Albumin 4.1, Globulin 2.7, Albumin/Globulin Ratio 1.5, CBC w Diff NO MAN DIFF REQ, RBC 3.92 L, MCV 86.1, MCH 27.3, RDW 15.3 H, MPV 8.8, Gran % 89.2 H, Lymphocytes % 6.3 L, Monocytes % 4.3, Eosinophils % 0.1, Basophils % 0.1, Absolute Granulocytes 11.6 H, Absolute Lymphocytes 0.8 L, Absolute Monocytes 0.6, Absolute Eosinophils 0, Absolute Basophils 0, PUBS MCHC 31.8 L, Salicylates < 1.0, Acetaminophen < 10.0 L 05/03/17 1810: Urine Opiates Screen > 4000.00 H, Methadone Screen 72, Barbiturate Screen < 60, Ur Phencyclidine Scrn < 6.00, Amphetamines Screen 273, U Benzodiazepines Scrn > 800 H, Urine Cocaine Screen < 50, Urine Cannabis Screen < 5.00, Urinalysis LIGHT H, Urine Color YEL, Urine Clarity TURBD H, Urine pH 5.5, Ur Specific [place] 1.025, Urine Protein TRACE H, Urine Ketones NEG, Urine Nitrite NEG, Urine Bilirubin NEG@ICTO, Urine Urobilinogen 0.2, Ur Leukocyte Esterase LARGE H , Ur Microscopic SEDIMENT EXAMINED, Urine RBC RARE, Urine WBC 25-50 H, Ur Epithelial Cells MOD H, Urine Bacteria MANY H, Urine Mucus MOD H, Micro UA Comment BUDDING YEAST H, Urine Hemoglobin NEG, Urine Glucose NEG Microbiology 05/04 650 URINE ROUT: Legionella Antigen - COMP 05/04 650 URINE ROUT: Streptococcus pneumoniae Antigen (M - COMP Assessment/Plan Impression/Plan: Physical Exam General Appearance DROWSY, BUT AROUSABLE. AAO x 3 Skin Temp/Moisture Exam: Warm/Dry Sepsis Skin Exam (color): Normal for Ethnicity HEENT Atraumatic, PERRLA, EOMI, dry mucous membranes Neck Supple, No JVD, No thryomegaly Cardiovascular Regular Rate, Normal S1, Normal S2, decrased brath sounds Lungs b/l wheezes Abdomen Normal Bowel Sounds, Soft, No Tenderness, umbilical protusion Extremities b/l lower extremity 2+ edema; has a scar on his LLE; LLE>>RLE Vascular Normal Pulses, Pulses Symmetrical cxr normal LE doppler normal IMPRESSION This is a lady with multiple medical issues which include significant COPD on 2 L of nasal cannula, hypertension, hyperlipidemia, anxiety, diabetes, recent UTI now comes in with altered mental status with * Improved Acute hypoxemic and hypercarbic respiratory failure most likely related to worsening chronic lung disease with end-stage COPD with COPDE, with effects from multiple sedative narcotic combo (on Fentanyl, trazadone, gabapentin, cetrizine, xanax) * Fever upon admission with no clinical pna but pt does get recurrent uti with multidrug resistant Ecoli prob esbl * Hypertension and diabetes, with uncontrolled htn which is concerning to the patient * Anxiety and depression with pain in the past * Previous lung nodules but patient had refused further workup before per patient but she does not want to go through to many testing in the past REC cont bipap IVF HOld all sedative/narcotics for now Remove fentanyl patch if she still has it on (i could not find one) Dc current abx Obtain urine culture again IV solumedrol 40 qd Nebs atc q6 hrs Cont levoxyl Watch for withdrawal When she is able start low dose meds Pt wishes to be dnr and dni Pt critically ill still tts 36 mins Consult Acknowledgment - Thank you for your consult request.
--- NOTE | 2017-05-04 10:07 | NUR ---
HOUSESTAFF PAGED. PT IS MORE LETHARGIC AND HARDER TO AWAKEN. #[phone]
--- NOTE | 2017-05-04 10:30 | NUR ---
HOUSESTAFF AT BEDSIDE FOR EVALUATION
--- NOTE | 2017-05-04 10:43 | NUR ---
PT MEDICATED WITH 0.4 MG NARCAN IV. PT AWAKE AND SPEAKING WITH THIS CRT. PT REMAINS SOMEWHAT CONFUSED BUT SPEAKING CLEARLY
--- NOTE | 2017-05-04 11:16 | NUR ---
CARNEY CATHETER PLACED. [facility] CONCENTRATED URINE OUT
--- NOTE | 2017-05-04 11:39 | NUR ---
HOUSESTAFF AT BEDSIDE FOR EVALUATION
--- NOTE | 2017-05-04 11:45 | NUR ---
DR BURKS AT BEDSIDE. PT AWAKE AND ALERT AT THIS TIME, ASKING ABOUT HER AND WHO IS TAKING CARE OF HIM. ( RECENTLY ) DR BURKS AWARE
--- NOTE | 2017-05-04 12:20 | NUR ---
SPOKE WITH RN AT [facility] WHO STATES THAT PT IS NORMALLY A&O WITH SOME CONFUSION AT TIMES. SHE STATES THAT PT WENT TO HUSBANDS AND KNOWS THAT HE IS
--- NOTE | 2017-05-04 13:07 | CT SCAN REPORT ---
EXAMINATION: CT HEAD WITHOUT CONTRAST CLINICAL INFORMATION: Sudden onset confusion. Altered mental status. Evaluate for intracranial hemorrhage. COMPARISON: No relevant prior imaging available. TECHNIQUE: Contiguous axial imaging was performed from the skull base to vertex without intravenous administration of contrast. DLP: 1370.67 mGy-cm FINDINGS: Patient motion degrades image quality therefore the diagnostic accuracy of this examination is limited. There is no acute intracranial hemorrhage or abnormal extra-axial collection. No intracranial mass effect or midline shift. Lateral and third ventricles are proportionate to the subarachnoid spaces. No hydrocephalus. There are ill-defined foci of hypoattenuation within the periventricular white matter that most likely represent a chronic manifestation of small vessel ischemia. Grossly there is no evidence of acute territorial infarct. The calvarium and skull base are intact. Mastoid air cells and middle ear cavities are well aerated. Visualized paranasal sinuses are well-aerated. IMPRESSION: Patient motion degrades image quality therefore the diagnostic accuracy of this examination is limited. No acute intracranial hemorrhage. There are nonspecific changes within the perivenular white matter that most likely represent a chronic manifestation of small vessel ischemia. Grossly no evidence of acute territorial infarct.
--- NOTE | 2017-05-04 13:25 | NUR ---
PT STATES REDDENED AREA IN CENTER OF CHEST IS D/T ?PAIN PATCH
[2017-05-04 13:54] VITALS: BP 128/70
--- NOTE | 2017-05-04 16:08 | Incdntl Nt Psy ---
Incidental Note Notation: Consult requested by Dr. Perez for "Altered mentation, hx of MDD, agitation, on BZs; please evaluate for agitation." Dr. Rondon attending. Subjective Review of Systems Constitutional: Reports: see HPI. Assessment/Plan Assessment: Identifying info: 76-year-old female brought in from assisted living facility for altered mental status. Patient received 4 doses of Narcan to good effect. Subjective: Patient states "I wasn't in here for diabetes hours and for blood pressure." States she is concerned for her because she is afraid he may be making food for children, unable to clarify. Objective: Current Medications Sig/[place] Start time Last Medication Dose Route Stop Time Status Admin Acetaminophen 650 MG Q4P PRN 05/04 0645 AC GA Albuterol Sulfate 3 ML EVERY 4 HRS/AWAKE 05/04 1200 AC 05/04 INH 1548 Albuterol Sulfate 3 ML ONCE ONE 05/03 1845 DC 05/03 INH 05/03 184 1847 Ceftazidime 1,000 MG Q8H 05/04 1400 CAN IV Ceftazidime 1,000 MG ONCE ONE 05/04 0530 DC 05/04 IV 05/04 0531 0528 Ceftazidime 0 .STK-MED ONE 05/04 0530 DC .ROUTE Dextrose/Sodium 1,000 ML Q8H 05/04 1500 AC Chloride IV Heparin Sodium 5,000 UNIT Q8 05/04 1400 AC 05/04 (Porcine) SC 1537 Insulin Human Regular 0 Q6 05/04 1200 AC / SC 1247 Ipratropium [place] 2.5 ML EVERY 4 HRS/AWAKE 05/04 1200 AC 05/04 INH 1548 Ipratropium [place] 2.5 ML ONCE ONE 05/03 1845 DC 05/03 INH 05/03 1846 1847 Levothyroxine Sodium 37.5 MCG DAILY 05/04 1000 AC 05/04 IV 1003 Methylprednisolone 40 MG DAILY 05/05 1000 AC IV Methylprednisolone 0 .STK-MED ONE 05/04 07 DC .ROUTE Methylprednisolone 40 MG Q8 05/04 0636 DC 05/04 IV 0658 Methylprednisolone 0 .STK-MED ONE 05/03 2053 DC .ROUTE Methylprednisolone 125 MG ONCE ONE 05/03 2045 DC 05/03 IV 05/03 Metoprolol Tartrate 5 MG ONCE ONE 05/04 0615 DC 05/04 IV 05/04 0616 0616 Metoprolol Tartrate 0 .STK-MED ONE 05/04 0615 DC IV Naloxone HCl 0.4 MG ONCE ONE 05/04 1130 CAN IV 05/04 1131 Naloxone HCl 0 .STK-MED ONE 05/04 1043 DC .ROUTE Naloxone HCl 0.4 MG ONCE ONE 05/04 1030 DC / IV 05/04 1031 1041 Naloxone HCl 0.4 MG ONCE ONE 05/04 0530 DC / IV 05/04 0531 0527 Naloxone HCl 0 .STK-MED ONE 05/04 0530 DC .ROUTE Naloxone HCl 0.4 MG ONCE ONE 05/03 2100 DC 05/03 IV 05/03 210 2103 Naloxone HCl 0 .STK-MED ONE 05/03 2057 DC .ROUTE Naloxone HCl 0 .STK-MED ONE 05/03 2018 DC .ROUTE Naloxone HCl 0.4 MG ONCE ONE 05/03 2015 DC 05/03 IV 05/03 2016 202 Sodium Chloride 1,000 ML Q13H 05/04 0745 DC / IV 05/04 2044 0805 Vancomycin HCl 1,000 MG Q8H 05/04 1000 DC 05/04 Sodium Chloride 250 ML IV 1003 Laboratory Tests 05/04/17 0810: pH 7.34 L, pCO2 61 *H, pO2 122 H, HCO3 32 H, ABG O2 Sat (Measured) 97.0, Carboxyhemoglobin 0.3 L, O2 Concentration % 60%, Respiration Rate 30, O2 Delivery Method VISION, Vent Mode ST, Expiratory Pressure 6, Inspiratory Pressure 24, Phlebotomy Draw Site LEFT RADIAL 05/04/17 0640: Anion Gap 9, Estimated GFR 49 L, BUN/Creatinine Ratio 19.1, Iron 38, TIBC 317, Ferritin 24.6, TSH 1.010, Free T4 1.12, CBC w Diff NO MAN DIFF REQ, RBC 3.77 L, MCV 85.3, MCH 27.1, RDW 15.0 H, MPV 8.8, Gran % 92.4 H, Lymphocytes % 7.1 L, Monocytes % 0.4 L, Eosinophils % 0, Basophils % 0.1, Absolute Granulocytes 9.0 H, Absolute Lymphocytes 0.7 L, Absolute Monocytes 0 L, Absolute Eosinophils 0, Absolute Basophils 0, PUBS MCHC 31.7 L 05/04/17 0510: pH 7.32 L, pCO2 67 *H, pO2 85, HCO3 34 H, ABG O2 Sat (Measured) 95.0 L, P-50 (Temp Corrected) Y, Carboxyhemoglobin 0.3 L, O2 Concentration % 60%, Temperature 97.8, Respiration Rate 30, O2 Delivery Method VISION-FFM, Vent Mode ST, Expiratory Pressure 6, Inspiratory Pressure 24, Phlebotomy Draw Site RIGHT RADIAL 05/03/17 2240: pH 7.32 L, pCO2 66 *H, pO2 93, HCO3 33 H, ABG O2 Sat (Measured) 95.0 L, P-50 (Temp Corrected) Y, Carboxyhemoglobin 0.3 L, O2 Concentration % 50%, Temperature 99.2, Respiration Rate 28, O2 Delivery Method BIPAP, Vent Mode ST, Expiratory Pressure 6, Inspiratory Pressure 22, Phlebotomy Draw Site RIGHT RADIAL 05/03/17 2134: Lactic Acid Cancelled 05/03/17 1900: pH 7.31 L, pCO2 69 *H, pO2 82, HCO3 34 H, ABG O2 Sat (Measured) 94.0 L, P-50 (Temp Corrected) Y, Carboxyhemoglobin 0.5 L, O2 Concentration % 7L, Temperature 98.3, O2 Delivery Method NEB, Phlebotomy Draw Site RIGHT RADIAL 05/03/17 1834: Lactic Acid Cancelled 05/03/17 1818: Anion Gap 11, Estimated GFR > 60, BUN/Creatinine Ratio 14.4, Glucose 162 H, Lactic Acid 1.0, Calcium 9.3, Magnesium 2.2, Total Bilirubin 0.4, AST 18, ALT 24 , Alkaline Phosphatase 73, Troponin I < 0.01, Xee-J-Mukfobmfvdp Pept 732 H, Total Protein 6.8, Albumin 4.1, Globulin 2.7, Albumin/Globulin Ratio 1.5, CBC w Diff NO MAN DIFF REQ, RBC 3.92 L, MCV 86.1, MCH 27.3, RDW 15.3 H, MPV 8.8, Gran % 89.2 H, Lymphocytes % 6.3 L, Monocytes % 4.3, Eosinophils % 0.1, Basophils % 0.1, Absolute Granulocytes 11.6 H, Absolute Lymphocytes 0.8 L, Absolute Monocytes 0.6, Absolute Eosinophils 0, Absolute Basophils 0, PUBS MCHC 31.8 L, Salicylates < 1.0, Acetaminophen < 10.0 L 05/03/17 1810: Urine Opiates Screen > 4000.00 H, Methadone Screen 72, Barbiturate Screen < 60, Ur Phencyclidine Scrn < 6.00, Amphetamines Screen 273, U Benzodiazepines Scrn > 800 H, Urine Cocaine Screen < 50, Urine Cannabis Screen < 5.00, Urinalysis LIGHT H, Urine Color YEL, Urine Clarity TURBD H, Urine pH 5.5, Ur Specific [place] 1.025, Urine Protein TRACE H, Urine Ketones NEG, Urine Nitrite NEG, Urine Bilirubin NEG@ICTO, Urine Urobilinogen 0.2, Ur Leukocyte Esterase LARGE H , Ur Microscopic SEDIMENT EXAMINED, Urine RBC RARE, Urine WBC 25-50 H, Ur Epithelial Cells MOD H, Urine Bacteria MANY H, Urine Mucus MOD H, Micro UA Comment BUDDING YEAST H, Urine Hemoglobin NEG, Urine Glucose NEG Microbiology 05/04 650 URINE ROUT: Legionella Antigen - COMP 05/04 650 URINE ROUT: Streptococcus pneumoniae Antigen (M - COMP Mental Status Exam Presentation/Appearance: Cooperative with evaluation, calm. Orientation: Oriented to self only, date "Tuesday," place "[facility]" Sensorium: Awake Eye contact: Appropriate Affect: Flat Mood: "Shitty" Depression: Endorses Anxiety: Endorses Thought Content: - Denies SI/HI, AH/VH, PI. Thought Process: Confused Associations: Somewhat loose Speech: Dysarthic Judgment: Poor Insight: Poor Cognition: Memory: Deficits noted Attention/Concentration: Deficits noted Fund of Knowledge: Unable to assess Abstractions:[place] MMSE: Did not assess Assessment: 76-year-old female presents to the hospital with altered mental status and responds to treatment with Narcan subsequently becoming agitated in the emergency department. Current acute confusional state can likely be attributed to substances, hypoxia, and UTI. At present it would be prudent to hold her home psychotropic medication including Xanax due to respiratory failure and confusion and to monitor for signs and symptoms of withdrawal and medicate appropriately. Differential diagnosis: Delirium, due to multiple etiologies, mixed level of activity By chart history of unspecified depressive disorder Plan: 1. Monitor for signs and symptoms of benzodiazepine withdrawal paying close attention to physiologic signs and medicating if needed. 2. Hold home psychotropics plan to restart slowly as mentation improves. 3. For dangerous agitation please utilize haloperidol 2 mg by mouth every 8 hours when necessary. Continue to monitor potassium, magnesium, and EKG on this medication. 4. Consider melatonin 5mg qhs. 5. Please continue to avoid benzodiazepines, opioid analgesics, and meds with strong anticholinergic properties as much as possible to prevent further confusion. 6. Please initiate the following nonpharmacologic interventions: -Avoid nursing and medical procedures during sleep hours whenever possible - Cluster at night interventions that must be completed as much as possible to minimize sleep disruption - Decrease noise patient area during sleeping hours - Reduce lighting at night - Ensure patient has any sensory aids close by that she regularly uses 7. Full psychiatric eval to follow. Thank you for including psychiatry in this case we will continue to follow. A total of 60 minutes was spent with the patient with more than 50% of the time spent in counseling and/or coordination of care.
[2017-05-04 16:11] VITALS: BP 118/68
[2017-05-05 00:21] VITALS: BP 144/68
--- NOTE | 2017-05-05 07:48 | PN- Housestaff ---
COREY MORGAN 05/05/17 0733: Subjective Follow-up For: - AMS 2/2 hypercarbia? - Acute hypoxic and hypercarbic respiratory failure 2/2 opiod overdose vs COPD exacrbation - DM Complaints: no complaints Tele-Events Since Last Visit: Sinus tachycardia HR: 104-111, 1st degree AV block, PACs, and PVC's. Subjective: Patient seen and examined at bedside. Is oriented to place, time and person, but seems intermitently confused. Offers no complaints. Is off BiPAP on 5.0 liters of O2. Is currently NPO. Apparently was agitated last evening, and recived Haldol, after which reportedly pleasant. Sitter at bedside. Review of Systems Constitutional: Denies: chills, fever, weakness. EENTM: Denies: visual changes. Cardiovascular: Denies: chest pain, palpitations. Respiratory: Denies: cough, short of breath, sputum production. Gastrointestinal: Denies: abdominal pain, constipation, diarrhea, nausea, vomiting. Genitourinary: Reports: no symptoms. Musculoskeletal: Reports: no symptoms. Neurological/Psychological: Denies: headache, numbness, tingling, tremors. Objective Last 24 Hrs of Vital Signs/I&O Vital Signs Date Time Temp Pulse Resp B/P B/P Pulse O2 O2 Flow FiO2 Mean Ox Delivery Rate 05/05 0042 108 96 05/05 0021 98.7 105 20 144/68 96 Nasal 5.0L Cannula 05/05 0000 Nasal 6.0L Cannula 05/04 2000 78 90 / 1834 73 93 / 1724 91 BIPAP 05/04 1611 99.3 71 20 118/68 92 BIPAP / 1551 93 BIPAP 40% / 1544 70 93 / 1450 90 Nasal 5.0L Cannula 05/04 1450 75 92 / 1437 90 Nasal 4.0L Cannula 05/04 1412 90 BIPAP / 1354 99.6 75 18 128/70 89 Nasal 4.0L Cannula 05/04 1150 92 Nasal 4.0L Cannula / 1114 99.3 68 26 140/70 97 BIPAP /07 1035 BIPAP 40% /07 0930 70 95 /07 0835 98 BIPAP 60% /07 0830 62 98 Intake & Output 05/05 0800 05/05 0000 05/04 1600 Intake Total 800 Output Total 1000 Balance -200 Intake, IV 800 Intake, Oral 0 Output, Urine 1000 Patient 250 lb Weight Physical Exam General Appearance: Alert, Oriented X3, intermittently confused HEENT: Atraumatic, PERRLA, EOMI, Mucous Membr. moist/pink Neck: Supple, No JVD, No thryomegaly, +2 Carotid Pulse wo Bruit, No LAD Cardiovascular: Normal S1, Normal S2, No Murmurs Lungs: Clear to Auscultation, Normal Air Movement Abdomen: Normal Bowel Sounds, Soft, No Tenderness Neurological: Normal Speech, Strength at 5/5 X4 Ext, Normal Tone, Sensation Intact Extremities: 1+ b/l lower extremity edema Vascular: Normal Pulses, Pulses Symmetrical Current Medications: Current Medications Sig/[place] Start time Last Medication Dose Route Stop Time Status Admin Acetaminophen 650 MG Q4P PRN 05/04 0645 AC PA Albuterol Sulfate 3 ML EVERY 4 HRS/AWAKE 05/04 1200 AC 05/04 INH 2004 Aspirin Buffered 81 MG DAILY 05/05 1000 UNVr PO Atorvastatin Calcium 40 MG DAILY 05/05 1000 UNVr PO Ceftazidime 1,000 MG Q8H 05/04 1400 CAN IV Cyanocobalamin 1,000 MCG DAILY 05/05 1000 UNVr PO Dextrose/Sodium 1,000 ML Q8H 05/04 1500 DC 05/05 Chloride IV 0346 Escitalopram Oxalate 20 MG DAILY 05/05 1000 UNVr PO Haloperidol 2 MG TID PRN 05/04 1815 AC 05/04 PO 2002 Heparin Sodium 5,000 UNIT Q8 05/04 1400 AC 05/05 (Porcine) SC 0638 Hydralazine HCl 100 MG TID 05/05 1000 UNVr PO Insulin Human Regular 0 Q6 05/04 1200 AC 05/05 SC 0638 Ipratropium [place] 2.5 ML EVERY 4 HRS/AWAKE 05/04 1200 AC 05/04 INH 2004 Levothyroxine Sodium 0.075 MG DAILY 05/05 1000 UNVr PO Levothyroxine Sodium 37.5 MCG DAILY 05/04 1000 DC 05/04 IV 1003 Melatonin 5 MG AT BEDTIME 05/04 2200 AC 05/04 PO 2231 Methylprednisolone 40 MG DAILY 05/05 1000 AC IV Methylprednisolone 40 MG Q8 05/04 0636 DC 05/04 IV 0658 Naloxone HCl 0.4 MG ONCE ONE 05/04 1130 CAN IV 05/04 1131 Naloxone HCl 0 .STK-MED ONE 05/04 1043 DC .ROUTE Naloxone HCl 0.4 MG ONCE ONE 05/04 1030 DC 06/07 IV / 1031 1041 Sodium Chloride 1,000 ML Q13H 05/04 0745 DC 06/07 IV 06/07 2044 0805 Vancomycin HCl 1,000 MG Q8H 05/04 1000 DC 06/ Sodium Chloride 250 ML IV 1003 Last 24 Hrs of Lab/[place] Results Last 24 Hrs of Labs/Mics: Laboratory Tests 05/05/17 0620: Sodium Pending, Potassium Pending, Chloride Pending, Carbon Dioxide Pending, Anion Gap Pending, BUN Pending, Creatinine Pending, BUN/Creatinine Ratio Pending , CBC w Diff Pending, WBC Pending, RBC Pending, Hgb Pending, Hct Pending, MCV Pending, MCH Pending, RDW Pending, Plt Count Pending, MPV Pending, PUBS MCHC Pending 05/04/17 0810: pH 7.34 L, pCO2 61 *H, pO2 122 H, HCO3 32 H, ABG O2 Sat (Measured) 97.0, Carboxyhemoglobin 0.3 L, O2 Concentration % 60%, Respiration Rate 30, O2 Delivery Method VISION, Vent Mode ST, Expiratory Pressure 6, Inspiratory Pressure 24, Phlebotomy Draw Site LEFT RADIAL Microbiology 05/04 1117 URINE ROUT: Urine Culture - COLB 05/04 1007 URINE ROUT: Urine Culture - COLB Orders Fingersticks (last 24 hrs): 195, 192, 177, 181, 155, 134 Radiology Findings: SERVICE DATE: 05/03/17-183 EXAM TYPE: RAD - XRY-PORTABLE CHEST XRAY EXAMINATION: CHEST 1 VIEW CLINICAL INFORMATION: Pneumonia. Fever. COMPARISON: None. TECHNIQUE: An AP view of the chest is provided. FINDINGS: The cardiac silhouette is at the upper limits of normal in size. The mediastinal and hilar contours are unremarkable. There are neither pleural effusions nor pneumothoraces. There are no consolidations. The osseous structures are unremarkable. IMPRESSION: No evidence for acute disease. SERVICE DATE: 05/04/17- EXAM TYPE: US - US-EXT BILAT VENOUS DOPPLER EXAMINATION: US TRIPLEX OF LOWER EXTREMITIES, BILATERAL CLINICAL INFORMATION: Suspected deep venous thrombosis. Swelling of the lower extremities, right greater than left. COMPARISON: No relevant prior imaging is available. TECHNIQUE: Color-flow triplex imaging with spectral analysis and compression Doppler were performed on the lower extremities. FINDINGS: The visualized common femoral vein, superficial femoral vein, profunda femoral vein, popliteal vein and midcalf peroneal and posterior tibial venous segments show no evidence of deep venous thrombosis. IMPRESSION: Normal triplex scan. No evidence of deep venous thrombosis within either of the lower extremities. SERVICE DATE: 05/04/17 EXAM TYPE: CAT - CT HEAD WO IV CONTRAST EXAMINATION: CT HEAD WITHOUT CONTRAST CLINICAL INFORMATION: Sudden onset confusion. Altered mental status. Evaluate for intracranial hemorrhage. COMPARISON: No relevant prior imaging available. TECHNIQUE: Contiguous axial imaging was performed from the skull base to vertex without intravenous administration of contrast. DLP: 1370.67 mGy-cm FINDINGS: Patient motion degrades image quality therefore the diagnostic accuracy of this examination is limited. There is no acute intracranial hemorrhage or abnormal extra-axial collection. No intracranial mass effect or midline shift. Lateral and third ventricles are proportionate to the subarachnoid spaces. No hydrocephalus. There are ill-defined foci of hypoattenuation within the periventricular white matter that most likely represent a chronic manifestation of small vessel ischemia. Grossly there is no evidence of acute territorial infarct. The calvarium and skull base are intact. Mastoid air cells and middle ear cavities are well aerated. Visualized paranasal sinuses are well-aerated. IMPRESSION: Patient motion degrades image quality therefore the diagnostic accuracy of this examination is limited. No acute intracranial hemorrhage. There are nonspecific changes within the perivenular white matter that most likely represent a chronic manifestation of small vessel ischemia. Grossly no evidence of acute territorial infarct. Assessment/Plan Assessment: In summary, this is a 74-year-old female with a past medical history of hyperlipidemia, morbid obesity, opioid abuse, hypothyroidism, IDDM (not on insulin any more b/c of recurrent episodes of hypoglycemia - taken of meds about a month ago) major depressive disorder, COPD dependent on 2 L of oxygen via nasal cannula, was SIB from [facility] after she was found to have sudden onset of lethargy, and acute change in mental status with hypoxia that was not responding to supplemental oxygen. Vitals at the time of admission blood pressure of 186/90, respiratory rate of 24 , pulse 88, afebrile saturating 96% on BiPAP. On physical exam she is lethargic, drowsy but arousable. HEENT revealed PERRLA, dry mucous membranes. Examination of the neck did not reveal elevated JVD or cervical lymphadenopathy. Respiratory exam pertinent for bilateral wheezes. Cardiovascular exam pertinent for normal S1, S2, muffled heart sounds. Abdominal exam is benign abdomen soft, nontender, nondistended, positive in all 4 quadrants. Examination of the lower extremities revealed that the right lower extremities greater than left lower extremity with some lesions on the left right lower extremity. There is 2+ bilateral edema. Labs were pertinent for leukocytosis with a white blood cell count of 13,000, normocytic anemia with an H&H of 10.7/33.7, normal MCV of 86.1 and a platelet count 237,000. Serum chemistries pertinent for sodium of 138, potassium of 5.2, bicarbonate of 34, anion gap of 11, BUN 13 with a creatinine of 0.9. Blood gas pertinent for respiratory acidosis with a pH of 7.31, PCO2 of 69 and a PO2 of 82. UA revealed trace MR proteinuria, positive for leukocyte esterase, 25-50 white blood cells and moderate amount of epithelial cells. U tox positive for urine opiates as well as benzos. ProBNP elevated at 732. First set of troponin negative at less than 0.01 Chest x-ray show neither pleural effusions or pneumothoraces, no consolidations. EKG showed normal sinus rhythm, normal axis, heart rate of 83, no ST-T changes. Echo done in January 2017 showed normal left ventricular ejection fraction of 65% with diastolic filling pattern In the ER she received Narcan 4 mg 3, Medrol 125 mg IV 1, treatment with albuterol and ipratropium. Assessment and plan #Acute hypoxemic, hypercarbic respiratory failure Most likely secondary to respiratory depression from pain meds. vs COPD exacerbation vs pulmonary embolism Improving, and on 5.0 liters of O2 via nasal cannula. LE dopplers ruled out DVT Urinary antigen for strep pneumo and legionella were negative. TRC/NEBS Dr. Ritter from Pulmonary following. F/U recs. Continue to hold all narcotics including Fentanyl patch, Tyelenol with Codiene. Checked CT UNDERCOVER AGENT, pharmacy [facility] called patient was dispensed Tyelnol with codiene for 7 days and Fentanyl patch for 30 days. #HTN Currently stable. Resumed ASA 81 mg daily, Labetolol [address] Continue to resume home meds depending on how her BPs trend. For now, holding Amlodipine 10mg daily and hydralazine 100mg TID - Vitals q shift # Normocytic anemia - Most likey 2/2 iron deficiency vs anemia of chronic disease. - F/U stool guaic. #Hypothyroidism TSH, FT4 WNL - Switch back to home dose of Levothyroxine 0.75mcg PO #Neuropathy - Holding Gabapentin 300MG in am and bedtime and 200mg in afternoon. #HLP - Holding Atorvasatin 40mg daily #Anxiety and insomnia - Holding Alprazolam 0.5mg BID PO - Resume Trazadone 25mg PO at bedtime - Continue to monitor for withdrawl symptoms. # Depression - Resuming Lexapro 20mg daily PO - Denies SI/HI - Psych on board fro depression, agitation. - Started on Haldol 2mg TID PRN - DVT prophylaxis - Hparin 5000IU TID SC - Diet - Resume diet today. On Consitent Carb 2 - Code Status - DNR/DNI Problem List: 1. Hypercapnic respiratory failure 2. Altered mental status Pain Ratin Pain Location: NA Pain Goal: Remain pain free Pain Plan: TYELNOL 650MG Q4 PRN PO Tomorrow's Labs & Rationales: Will order pending today's blood work Consulting Request: Consulting Specialty: Pulmonary Disease VITAL[facility]Y [facility]AGON[facility] 05/05/17 1052: Attending MD Review Statement Attending Statement Attending MD Statement: examined this patient, discuss w/resident/PA/ACCOUNTANT CONTROLLER, agreed w/resident/PA/ACCOUNTANT CONTROLLER, reviewed EMR data (avail), discussed with nursing, discussed with case mgmt, amended to note Attending Assessment/Plan: Patient seen and examined. She is much more alert this morning oriented 3. She has been on BiPAP therapy since yesterday. Conversing appropriately. Very jovial. She did require a dose of Haldol about 8 PM last night but has not required any medication since then. She complained about being on excessive medication since been admitted to the residential facility. She however stated that she believes the medications were necessary she is currently requesting for sleep aid. I did suggest melatonin but she states that this medication does not help her. The long-term she is on melatonin and trazodone. She denies having chronic pain. She reports occasional headaches and complains of headache this morning. She does not recall when she was last on the fentanyl patch. She states that it was too strong for her. She denies cough or shortness of breath. Denies chest pain. She is afebrile and hemodynamically stable. The BBC remains within normal limit this morning. Hemoglobin level is at baseline. On examination she is alert and oriented 3. Lungs are clear bilaterally. Heart sounds are regular. Abdomen is soft and nontender. She has extensive scars right lower extremity. Problems: 1. Acute hypercapnic respiratory failure; likely medication induced 2. Altered mental status; secondary to delirium. Patient also has underlying history of major depression. 3. Query pain syndrome. Patient is on fentanyl patch and Tylenol 3 from the long-term. She was not on this regimen when discharged from here in January. Plan: -Continue oxygen supplementation. Mobilize patient as tolerated. Bronchodilator therapy per TRC. -No need for antibiotic therapy. -Patient requested sleepy. Resume melatonin and trazodone. -Continue Lexapro for depression. Hold gabapentin for now. -Hold Xanax for now. -Anticipate discharge tomorrow if she remains hemodynamically stable with her improved mental status per
[2017-05-05 08:07] LABS: ABSOLUTE BASOPHIL COUNT 0 /CUMM (0.0-0.2); ABSOLUTE EOSINOPHIL COUNT 0 /CUMM (0.0-0.7); ABSOLUTE GRANULOCYTE CT 6.6 /CUMM (1.4-6.5); ABSOLUTE LYMPH COUNT 1.5 /CUMM (1.2-3.4); ABSOLUTE MONOCYTE COUNT 0.8 /CUMM (0.10-0.60); BASOPHIL % 0.2 % (0.0-2.0); EOSINOPHIL % 0 % (0-5); GRANULOCYTE % 73.7 % (42.2-75.2); HEMATOCRIT 29.1 % (37-47); MEAN CORPUSCULAR HGB 27.8 PG (27.0-31.0); MEAN CORPUSCULAR HGB CONC 32.6 G/DL (33.0-37.0); MEAN CORPUSCULAR VOLUME 85.3 FL (81.0-99.0); MEAN PLATELET VOLUME 9.4 FL (7.4-10.4); PLATELET COUNT 192 /CUMM (130-400); RED BLOOD CELL CT 3.42 /CUMM (4.20-5.40)
[2017-05-05 08:44] VITALS: BP 146/80
--- NOTE | 2017-05-05 13:50 | PN- Pulmonary ---
Subjective HPI/Critical Care Issues: Patient seen and examined at bedside. Is oriented to place, time and person, stable Apparently was agitated last evening, and recived Haldol, after which reportedly pleasant. Sitter at bedside. Review of Systems Constitutional: Denies: chills, fever, weakness. EENTM: Denies: visual changes. Cardiovascular: Denies: chest pain, palpitations. Respiratory: Denies: cough, short of breath, sputum production. Gastrointestinal: Denies: abdominal pain, constipation, diarrhea, nausea, vomiting. Genitourinary: Reports: no symptoms. Musculoskeletal: Reports: no symptoms. Neurological/Psychological: Denies: headache, numbness, tingling, tremors. Objective Current Medications: Current Medications Sig/[place] Start time Last Medication Dose Route Stop Time Status Admin Acetaminophen 650 MG Q4P PRN 05/04 0645 AC AK Albuterol Sulfate 3 ML EVERY 4 HRS/AWAKE 05/04 1200 AC 05/05 INH 1150 Aspirin Buffered 81 MG DAILY 05/05 1000 AC 05/05 PO 1005 Atorvastatin Calcium 40 MG 1700 05/05 1700 AC PO Cyanocobalamin 1,000 MCG DAILY 05/05 1000 AC 05/05 PO 1005 Dextrose/Sodium 1,000 ML Q8H 05/04 1500 DC 06 Chloride IV 0346 Escitalopram Oxalate 20 MG DAILY 05/05 1000 AC 05/05 PO 1005 Haloperidol 2 MG TID PRN 05/04 1815 AC 06/ PO 2002 Heparin Sodium 5,000 UNIT Q8 / 1400 AC 05/05 (Porcine) SC 0638 Hydralazine HCl 100 MG TID 05/05 1000 CAN PO Insulin Human Regular 4 UNITS .STK-MED ONE 05/05 0015 DC IV 05/05 0016 Insulin Human Regular 0 Q6 / 1200 AC 06/08 SC 1302 Ipratropium [place] 2.5 ML EVERY 4 HRS/AWAKE 05/04 1200 AC 05/05 INH 1150 Labetalol HCl 200 MG BID 05/05 1000 AC / PO 1005 Levothyroxine Sodium 0.075 MG DAILY AC 05/05 0758 AC 06/ PO 1005 Levothyroxine Sodium 37.5 MCG DAILY 05/04 1000 DC / IV 1003 Melatonin 5 MG AT BEDTIME 05/04 2200 AC 06/ PO 2231 Methylprednisolone 40 MG DAILY 05/05 1000 AC 05/05 IV 1005 Patient Medication 1 ED .STK-MED ONE 05/05 1313 DC Teaching ED 05/05 1314 Sodium Chloride 1,000 ML Q13H 05/04 0745 DC 05/04 IV 05/044 0805 Trazodone HCl 25 MG AT BEDTIME 05/05 2200 AC PO Vital Signs & I&O Last 24 Hrs of Vitals and I&O: Vital Signs Date Time Temp Pulse Resp B/P B/P Pulse O2 O2 Flow FiO2 Mean Ox Delivery Rate 05/05 1151 92 Nasal 5.0L Cannula 05/05 1005 146/80 05/05 0915 95 Nasal 6.0L Cannula 05/05 0844 98.8 108 20 146/80 95 Nasal 6.0L Cannula 05/05 0800 94 Nasal 5.0L Cannula 05/05 0042 108 96 05/05 0021 98.7 105 20 144/68 96 Nasal 5.0L Cannula 05/05 0000 Nasal 6.0L Cannula 05/04 2000 78 90 05/04 1834 73 93 05/04 1724 91 BIPAP 05/04 1611 99.3 71 20 118/68 92 BIPAP 05/04 1551 93 BIPAP 40% 05/04 1544 70 93 05/04 1450 90 Nasal 5.0L Cannula 05/04 1450 75 92 05/04 1437 90 Nasal 4.0L Cannula 05/04 1412 90 BIPAP 05/04 1354 99.6 75 18 128/70 89 Nasal 4.0L Cannula Intake & Output 05/05 1600 08 0800 08 0000 Intake Total 800 800 Output Total 1800 1000 Balance -1000 -200 Intake, IV 800 800 Intake, Oral 0 0 Number 1 Bowel Movements Output, Urine 1800 1000 Impression/Plan Impression/Plan Impression/Plan: Physical Exam General Appearance AAO x 3 Skin Temp/Moisture Exam: Warm/Dry Sepsis Skin Exam (color): Normal for Ethnicity HEENT Atraumatic, PERRLA, EOMI, dry mucous membranes Neck Supple, No JVD, No thryomegaly Cardiovascular Regular Rate, Normal S1, Normal S2, decrased brath sounds Lungs b/l wheezes Abdomen Normal Bowel Sounds, Soft, No Tenderness, umbilical protusion Extremities b/l lower extremity 2+ edema; has a scar on his LLE; LLE>>RLE Vascular Normal Pulses, Pulses Symmetrical cxr normal LE doppler normal IMPRESSION This is a lady with multiple medical issues which include significant COPD on 2 L of nasal cannula, hypertension, hyperlipidemia, anxiety, diabetes, recent UTI now comes in with altered mental status with * Improved Acute hypoxemic and hypercarbic respiratory failure most likely related to worsening chronic lung disease with end-stage COPD with COPDE, with effects from multiple sedative narcotic combo (on Fentanyl, trazadone, gabapentin, cetrizine, xanax) * Fever upon admission with no clinical pna but pt does get recurrent uti with multidrug resistant Ecoli prob esbl * Hypertension and diabetes, with uncontrolled htn which is concerning to the patient * Anxiety and depression with pain in the past * Previous lung nodules but patient had refused further workup before per patient but she does not want to go through to many testing in the past REC cont bipap at hs and prn only during the day IVF till she can take po Obtain urine culture again IV solumedrol 40 qd Nebs atc q6 hrs prn Change to po prednisone 30 and wean in few days Cont levoxyl Watch for withdrawal When she is able start low dose meds to avoid withdrawal Pt wishes to be dnr and dni
[2017-05-05 18:08] VITALS: BP 138/70
--- NOTE | 2017-05-05 22:21 | NUR ---
PT STATED "I AM GOING TO COMMITT SUICIDE" ASKED IF THERE WAS A PLAN, PATIENT SAID NO. RN INTEGRATED AND MD PERRY AWARE. MD UP TO ASSESS PATIENT. PATIENT CURRENTLY DENYING ANY THOUGHTS OF SELF HARM.
[2017-05-05 23:14] VITALS: BP 144/80
[2017-05-05 23:21] VITALS: BP 144/80
--- NOTE | 2017-05-06 07:02 | PN- Housestaff ---
COREY MORGAN 05/06/17 0702: Subjective Follow-up For: - AMS 2/2 hypercarbia? - Acute hypoxic and hypercarbic respiratory failure 2/2 opiod overdose vs COPD exacrbation - DM - Depression Complaints: no complaints Tele-Events Since Last Visit: SB-ST - 50-110's. No events Subjective: Patient seen and examined at bedside. She states that she had a bad night, where sh ewas not able to sleep properly. Apparently, she wanted to leave last night, and had expressed thatshe wanted to . However, she was evaluated by the night team, and was not found to have any SI/HI. Review of Systems Constitutional: Denies: chills, fever. EENTM: Denies: visual changes. Cardiovascular: Denies: chest pain, orthopena, palpitations. Respiratory: Denies: cough, short of breath, sputum production, wheezing. Gastrointestinal: Denies: abdominal pain, nausea, vomiting. Genitourinary: Reports: no symptoms. Musculoskeletal: Reports: no symptoms. Neurological/Psychological: Denies: headache, numbness, tingling, tremors. Objective Last 24 Hrs of Vital Signs/I&O Vital Signs Date Time Temp Pulse Resp B/P B/P Pulse O2 O2 Flow FiO2 Mean Ox Delivery Rate 05/06 0000 93 Nasal 5.0L Cannula 05/05 2321 98.4 68 20 144/80 93 Nasal 5.0L Cannula 05/05 2314 98.4 117 16 144/80 92 06/08 2131 110 140/80 /08 1808 112.0 52 16 138/70 94 /08 1600 92 Nasal 5.0L Cannula 05/05 1151 92 Nasal 5.0L Cannula 08 1005 146/80 /08 0915 95 Nasal 6.0L Cannula /08 0844 98.8 108 20 146/80 95 Nasal 6.0L Cannula Intake & Output 05/06 1600 05/06 0800 06 0000 Intake Total 120 120 Output Total 400 400 Balance -280 -280 Intake, Oral 120 120 Output, Urine 400 400 Physical Exam General Appearance: Alert, Oriented X3, Cooperative, No Acute Distress Skin Temp/Moisture Exam: Warm/Dry HEENT: Atraumatic, PERRLA, EOMI, Mucous Membr. moist/pink Neck: Supple, No JVD, No thryomegaly, +2 Carotid Pulse wo Bruit, No LAD Cardiovascular: Regular Rate, Normal S1, Normal S2, No Murmurs Lungs: Clear to Auscultation, Normal Air Movement Abdomen: Normal Bowel Sounds, Soft, No Tenderness Neurological: Normal Speech, Strength at 5/5 X4 Ext, Normal Tone, Sensation Intact, Cranial Nerves 3-12 NL, Reflexes 2+ Extremities: 2+ b/l LE edema Current Medications: Current Medications Sig/[place] Start time Last Medication Dose Route Stop Time Status Admin Acetaminophen 650 MG Q4P PRN 05/05 1645 AC 05/05 PO 2126 Acetaminophen 650 MG Q4P PRN 05/04 0645 DC OK Albuterol Sulfate 3 ML EVERY 4 HRS/AWAKE 05/04 1200 AC 05/05 INH 2009 Amlodipine Besylate 10 MG DAILY 05/06 1000 AC PO Aspirin Buffered 81 MG DAILY 05/05 1000 AC 05/05 PO 1005 Atorvastatin Calcium 40 MG 1700 05/05 1700 AC 05/05 PO 1637 Cyanocobalamin 1,000 MCG DAILY 05/05 1000 AC 05/05 PO 1005 Escitalopram Oxalate 20 MG DAILY 05/05 1000 AC 05/05 PO 1005 Haloperidol 2 MG TID PRN 05/05 2130 AC 05/05 PO 2125 Haloperidol 2 MG TID PRN 05/04 1815 DC 05/04 PO 2002 Heparin Sodium 5,000 UNIT Q8 05/04 1400 AC 05/06 (Porcine) SC 0525 Insulin Aspart 0 TIDAC 05/06 0800 AC SC Insulin Human Regular 6 UNITS .STK-MED ONE 05/05 1823 DC IV 05/05 1824 Insulin Human Regular 4 UNITS .STK-MED ONE 05/05 1300 DC IV 05/05 1301 Insulin Human Regular 0 Q6 05/04 1200 DC 05/05 SC 1824 Ipratropium [place] 2.5 ML EVERY 4 HRS/AWAKE 05/04 1200 AC 05/05 INH 2009 Labetalol HCl 200 MG BID 05/05 1000 AC 05/05 PO 2131 Levothyroxine Sodium 0.075 MG DAILY AC 05/05 0758 AC 05/06 PO 0525 Melatonin 5 MG AT BEDTIME 05/04 2200 AC 05/05 PO 2126 Methylprednisolone 40 MG DAILY 05/05 1000 DC 05/05 IV 1005 Patient Medication 1 ED .STK-MED ONE 05/05 1313 DC Teaching ED 05/05 1314 Prednisone 5 MG DAILY 05/12 1000 AC PO 05/13 1001 Prednisone 10 MG DAILY 05/10 1000 AC PO 05/11 1001 Prednisone 20 MG DAILY 05/08 1000 AC PO 05/09 1001 Prednisone 30 MG DAILY 05/06 1000 CAN PO 05/14 0959 Prednisone 30 MG DAILY 05/06 1000 AC PO 05/07 1001 Trazodone HCl 25 MG AT BEDTIME 05/05 2200 AC 05/05 PO 2126 Last 24 Hrs of Lab/[place] Results Last 24 Hrs of Labs/Mics: Laboratory Tests 05/06/17 0620: CBC w Diff Pending, WBC Pending, RBC Pending, Hgb Pending, Hct Pending, MCV Pending, MCH Pending, RDW Pending, Plt Count Pending, MPV Pending, PUBS MCHC Pending Orders Fingersticks (last 24 hrs): 104-215 Assessment/Plan Assessment: In summary, this is a 74-year-old female with a past medical history of hyperlipidemia, morbid obesity, opioid abuse, hypothyroidism, IDDM (not on insulin any more b/c of recurrent episodes of hypoglycemia - taken of meds about a month ago) major depressive disorder, COPD dependent on 2 L of oxygen via nasal cannula, was SIB from [facility] after she was found to have sudden onset of lethargy, and acute change in mental status with hypoxia that was not responding to supplemental oxygen. Vitals at the time of admission blood pressure of 186/90, respiratory rate of 24 , pulse 88, afebrile saturating 96% on BiPAP. On physical exam she is lethargic, drowsy but arousable. HEENT revealed PERRLA, dry mucous membranes. Examination of the neck did not reveal elevated JVD or cervical lymphadenopathy. Respiratory exam pertinent for bilateral wheezes. Cardiovascular exam pertinent for normal S1, S2, muffled heart sounds. Abdominal exam is benign abdomen soft, nontender, nondistended, positive in all 4 quadrants. Examination of the lower extremities revealed that the right lower extremities greater than left lower extremity with some lesions on the left right lower extremity. There is 2+ bilateral edema. Labs were pertinent for leukocytosis with a white blood cell count of 13,000, normocytic anemia with an H&H of 10.7/33.7, normal MCV of 86.1 and a platelet count 237,000. Serum chemistries pertinent for sodium of 138, potassium of 5.2, bicarbonate of 34, anion gap of 11, BUN 13 with a creatinine of 0.9. Blood gas pertinent for respiratory acidosis with a pH of 7.31, PCO2 of 69 and a PO2 of 82. UA revealed trace MR proteinuria, positive for leukocyte esterase, 25-50 white blood cells and moderate amount of epithelial cells. U tox positive for urine opiates as well as benzos. ProBNP elevated at 732. First set of troponin negative at less than 0.01 Chest x-ray show neither pleural effusions or pneumothoraces, no consolidations. EKG showed normal sinus rhythm, normal axis, heart rate of 83, no ST-T changes. Echo done in January 2017 showed normal left ventricular ejection fraction of 65% with diastolic filling pattern In the ER she received Narcan 4 mg 3, Medrol 125 mg IV 1, treatment with albuterol and ipratropium. Assessment and plan #Acute hypoxemic, hypercarbic respiratory failure Most likely secondary to respiratory depression from pain meds. vs COPD exacerbation and on 5.0 liters of O2 via nasal cannula. LE dopplers ruled out DVT Urinary antigen for strep pneumo and legionella were negative. TRC/NEBS Dr. Ritter from Pulmonary following. F/U recs. She would benefit from NIV at night. Continue to hold all narcotics including Fentanyl patch, Tyelenol with Codiene. Checked CT BUSINESS BANKING REPRESENTATIVE, [facility] called patient was dispensed Tyelnol with codiene for 7 days and Fentanyl patch for 30 days Continue to titrate O2 downto 2.0 liters and anticipate D/C to [facility] today. #HTN Ranging in e140's. Resumed ASA 81 mg daily, Labetolol 200 daily, hydralazine 100mg BID Continue to resume home meds depending on how her BPs trend. For now, holding Amlodipine 10mg daily and resume upon discharge - Vitals q shift # Normocytic anemia - Most likey 2/2 iron deficiency vs anemia of chronic disease. - F/U stool guaic. #Hypothyroidism TSH, FT4 WNL - Continue home dose of Levothyroxine 0.75mcg PO #Neuropathy - Holding Gabapentin 300MG in am and bedtime and 200mg in afternoon. #HLP - Continue Atorvasatin 40mg daily #Anxiety and insomnia - Holding Alprazolam 0.5mg BID PO, resume upon discharge - Continue Trazadone 25mg PO at bedtime - Continue to monitor for withdrawl symptoms. # Depression - Continue Lexapro 20mg daily PO - Denies SI/HI - Psych on board fro depression, agitation. - Started on Haldol 2mg TID PRN, whhic she has not required - DVT prophylaxis - Hparin 5000IU TID SC - Diet - Resume diet today. On Consitent Carb 2 - Code Status - DNR/DNI Problem List: 1. Hypercapnic respiratory failure Pain Ratin Pain Location: N/A Pain Goal: Remain pain free Pain Plan: tylenol Tomorrow's Labs & Rationales: N/A Consulting Request: Consulting Specialty: Pulmonary Disease Discharge Plan Discharge Disposition: STR/NH Stable for Discharge? Yes Anticipated Discharge (Day): today VITALIY ARAGON,MAURO 05/06/17 1148: Attending MD Review Statement Attending Statement Attending MD Statement: examined this patient, discuss w/resident/PA/BRAND ADVOCATE, agreed w/resident/PA/BRAND ADVOCATE, discussed with family, reviewed EMR data (avail), discussed with nursing, discussed with case mgmt, amended to note Attending Assessment/Plan: Patient seen and examined. Alert and oriented 3. Not in any acute distress. Overnight nursing staff reports that is occasionally confused. She required a dose of Haldol last night. Apparently after fully catheter was removed she got upset insisting that it was meant to be prominent anticipate good money for it. This [place] catheter was placed in the emergency room on admission. I did have an extensive conversation with her daughter this morning. She admits that had mother on occasion has periods of confusion. She reports that she gets calls frequently from her in the middle of the night for very bizarre reasons. She reports that following a recent admission at the hospital she got a call from the physicians caring for her inquiring whether the patient had "a mental problem". Nursing staff reports that patient have stated she went to sleep her wrist overnight. When evaluated by staff she denied this. She was followed up by the psychiatric service this morning. Currently has no evidence of suicidal ideation. It is possible that her bizarre behavior may be due to underlying psychiatric disorder such as depression. She does not have a formal diagnosis of dementia that may be sundowning as her bizarre behavior appear to occur predominantly late in the day. From a pulmonary standpoint she is stable. She has no evidence of the infectious process. She has been weaned down to 4 L of oxygen. She denies any respiratory complaints and lungs are clear bilaterally. With regards to pain she has been doing well of fentanyl and Tylenol 3 here. She has required only 2 doses of Tylenol orally during this hospitalization. Her daughter is quite surprised that his stating that the longterm patient demands for pain medication every 15 minutes. Patient is currently alert and oriented 3 and denies any pain. Have advised the daughter that pain medication should be given with extreme caution as this may have contributed to her delirium. Problems: 1. Acute hypercapnic respiratory failure likely medication induced 2. Secondary to above now resolved. 3. Query pain syndrome versus pain medication dependency; currently doing well off all pain medications. Plan: -Patient is medically stable to discharge to [facility] facility today. -Continue to taper oxygen as tolerated. -Taper off prednisone. - pulmonology follow-up as an outpatient. -Caution with pain medication at the [facility] facility. Recommend pain mgt consultation at the SNF. -Geriatric consultation as an outpatient
--- NOTE | 2017-05-06 08:11 | Discharge Summary ---
Visit Information Visit Dates Admission Date: 05/04/17 Discharge Date: 05/06/2017 Hospital Course Course Attending Physician: MAURO BURKS M.D Primary Care Physician: ROB HICKS MD Consulting Request: 1 Consulting Specialty: Pulmonary Disease Consulting Physician: Dr. Ritter Reason for Consult: Acute hypoxic and hypercarbic respiratory failure Consulting Request: 2 Consulting Specialty: Psychiatry Reason for Consult: Depression Hospital Course: 74-year-old female with a past medical history of hyperlipidemia, morbid obesity , opioid abuse, hypothyroidism, IDDM (not on insulin any more b/c of recurrent episodes of hypoglycemia - taken of meds about a month ago) major depressive disorder, COPD dependent on 2 L of oxygen via nasal cannula, was SIB from [facility] after she was found to have sudden onset of lethargy, and acute change in mental status with hypoxia that was not responding to supplemental oxygen. Vitals at the time of admission blood pressure of 186/90, respiratory rate of 24 , pulse 88, afebrile saturating 96% on BiPAP. On physical exam she is lethargic, drowsy but arousable. HEENT revealed PERRLA, dry mucous membranes. Examination of the neck did not reveal elevated JVD or cervical lymphadenopathy. Respiratory exam pertinent for bilateral wheezes. Cardiovascular exam pertinent for normal S1, S2, muffled heart sounds. Abdominal exam is benign abdomen soft, nontender, nondistended, positive in all 4 quadrants. Examination of the lower extremities revealed that the right lower extremities greater than left lower extremity with some lesions on the left right lower extremity. There is 2+ bilateral edema. Labs were pertinent for leukocytosis with a white blood cell count of 13,000, normocytic anemia with an H&H of 10.7/33.7, normal MCV of 86.1 and a platelet count 237,000. Serum chemistries pertinent for sodium of 138, potassium of 5.2, bicarbonate of 34, anion gap of 11, BUN 13 with a creatinine of 0.9. Blood gas pertinent for respiratory acidosis with a pH of 7.31, PCO2 of 69 and a PO2 of 82. UA revealed trace MR proteinuria, positive for leukocyte esterase, 25-50 white blood cells and moderate amount of epithelial cells. U tox positive for urine opiates as well as benzos. ProBNP elevated at 732. First set of troponin negative at less than 0.01 Chest x-ray show neither pleural effusions or pneumothoraces, no consolidations. EKG showed normal sinus rhythm, normal axis, heart rate of 83, no ST-T changes. Echo done in January 2017 showed normal left ventricular ejection fraction of 65% with diastolic filling pattern In the ER she received Narcan 4 mg 3, Medrol 125 mg IV 1, treatment with albuterol and ipratropium. She was admitted to Telemetry and the following problems were addressed: #Acute hypoxemic, hypercarbic respiratory failure This was thought to be most likely secondary to respiratory depression from pain meds. vs COPD exacerbation. She was on NIV and titated down to O2 via nasal cannula @ 5.0 liters. LE dopplers were done which ruled out DVT her urinary antigen for strep pneumo and legionella were negative. She was seen by Dr. Ritter from Pulmonary and she was staretd on IV solumedrol with trasnition to Prednisone. We continued to hold all narcotics including Fentanyl patch, Tyelenol with Codiene. Checked CT ANALYTICAL DATA SCIENTIST, pharmacy [facility] called patient was dispensed Tyelnol with codiene for 7 days and Fentanyl patch for 30 days. Contineu to taper off oxygen to 2.0 liters to maintain sats > 92%. She should F.U with advertising production manager for NIV at bedtime. -Caution with pain medication at the [facility] facility. Recommend pain mgt consultation at the SNF. #HTN She was continued on ASA 81 mg daily, Labetolol 200 daily, Hydralazine 100mg BID PO, Amlodipine 10mg daily. # Normocytic anemia - Most likey 2/2 iron deficiency vs anemia of chronic disease. #Hypothyroidism TSH, FT4 WNL. She was continued on home dose of Levothyroxine 0.75mcg PO #Neuropathy - She is to continue taking Gabapentin 300MG in am and bedtime and 200mg in afternoon. #HLP Seh was continued on Atorvasatin 40mg daily #Anxiety and insomnia - She is to be continued on Alprazolam 0.5mg BID PO and Trazadone 25mg PO at bedtime. Recommend Geritaric consult as outpatient. # Depression - She was continued on Lexapro 20mg daily PO. She denied SI/HI. Psych was on board fro depression, agitation. - Seh was started on Haldol 2mg TID PRN, which she barely required. Psych saw and cleared her from having any SI. - DVT prophylaxis - She was on Hparin 5000IU TID SC Allergies: Coded Allergies: Penicillins (UNKNOWN 05/04/17) Sulfa (Sulfonamide Antibiotics) (UNKNOWN 05/04/17) amoxicillin (UNKNOWN 05/04/17) crab (UNKNOWN 05/04/17) erythromycin base (UNKNOWN 05/04/17) potassium iodide (UNKNOWN 05/04/17) Significant Procedures: SERVICE DATE: 05/03/17-1833 EXAM TYPE: RAD - XRY-PORTABLE CHEST XRAY FINDINGS: The cardiac silhouette is at the upper limits of normal in size. The mediastinal and hilar contours are unremarkable. There are neither pleural effusions nor pneumothoraces. There are no consolidations. The osseous structures are unremarkable. IMPRESSION: No evidence for acute disease. SERVICE DATE: 05/04/17- EXAM TYPE: US - US-EXT BILAT VENOUS DOPPLER FINDINGS: The visualized common femoral vein, superficial femoral vein, profunda femoral vein, popliteal vein and midcalf peroneal and posterior tibial venous segments show no evidence of deep venous thrombosis. IMPRESSION: Normal triplex scan. No evidence of deep venous thrombosis within either of the lower extremities. SERVICE DATE: 05/04/17-114 EXAM TYPE: CAT - CT HEAD WO IV CONTRAST FINDINGS: Patient motion degrades image quality therefore the diagnostic accuracy of this examination is limited. There is no acute intracranial hemorrhage or abnormal extra-axial collection. No intracranial mass effect or midline shift. Lateral and third ventricles are proportionate to the subarachnoid spaces. No hydrocephalus. There are ill-defined foci of hypoattenuation within the periventricular white matter that most likely represent a chronic manifestation of small vessel ischemia. Grossly there is no evidence of acute territorial infarct. The calvarium and skull base are intact. Mastoid air cells and middle ear cavities are well aerated. Visualized paranasal sinuses are well-aerated. IMPRESSION: Patient motion degrades image quality therefore the diagnostic accuracy of this examination is limited. No acute intracranial hemorrhage. There are nonspecific changes within the perivenular white matter that most likely represent a chronic manifestation of small vessel ischemia. Grossly no evidence of acute territorial infarct. Pertinent Lab Results: Laboratory Tests 05/06 620 Hematology CBC w Diff NO MAN DIFF REQ WBC (4.8 - 10.8 /CUMM) 10.8 RBC (4.20 - 5.40 /CUMM) 3.60 L Hgb (12.0 - 16.0 G/DL) 9.9 L Hct (37 - 47 %) 30.5 L MCV (81.0 - 99.0 FL) 84.8 MCH (27.0 - 31.0 PG) 27.4 RDW (11.5 - 14.5 %) 15.2 H Plt Count (130 - 400 /CUMM) 223 MPV (7.4 - 10.4 FL) 9.2 Gran % (42.2 - 75.2 %) 65.1 Lymphocytes % (20.5 - 51.1 %) 26.9 Monocytes % (1.7 - 9.3 %) 7.8 Eosinophils % (0 - 5 %) 0 Basophils % (0.0 - 2.0 %) 0.2 Absolute Granulocytes (1.4 - 6.5 /CUMM) 7.0 H Absolute Lymphocytes (1.2 - 3.4 /CUMM) 2.9 Absolute Monocytes (0.10 - 0.60 /CUMM) 0.8 H Absolute Eosinophils (0.0 - 0.7 /CUMM) 0 Absolute Basophils (0.0 - 0.2 /CUMM) 0 PUBS MCHC (33.0 - 37.0 G/DL) 32.3 L Disposition Summary Disposition Principal Diagnosis: - Altered mental status 2/2 hypercarbia - Acute hypoxic and hypercarbic respiratory failure 2/2 opiod overdose vs COPD exacrbation Additional Diagnosis: - DM - Depression Discharge Disposition: SNF Discharge Instructions General Discharge Information Code Status: Do Not Resucitate/Intubat Patient's Diet: Consistent Carb 2 Patient's Activity: As tolerated Follow-Up Instructions/Appts: Please F/U with your primary care physician in one week. Please F/U with your Nutrition Associate for BiPAP at night in one week. Please F/U with your psychiatrist in one weeek. Please take Prednisone as directed below: 3 tablets on 05/07/17 2 tablets daily from 05/08/17 through 05/09/17 1 tablet daily from 05/10/17 through 05/11/17 Medications at Discharge Discharge Medications: Stop taking the following medications: Fentanyl (Fentanyl) 25 MCG/HOUR PATCH.TD72 On the skin Every 3 days Tylenol With Codeine (Tylenol With Codeine #3 Tablet) 300 MG-30 MG TABLET ORAL EVERY SIX HOURS NEEDED as needed for PAIN Continue taking these medications: Levothyroxine Sodium (Levothyroxine Sodium) 75 MCG TABLET 1 Tablet ORAL DAILY Comments: GIVEN 05/06/17 @ 0530 Montelukast Sodium (Montelukast Sodium) 10 MG TABLET 1 Tablet ORAL DAILY Comments: NOT GIVEN Hydralazine HCl (Hydralazine HCl) 100 MG TABLET 1 Tablet ORAL TWICE DAILY Qty = 90 Comments: GIVEN 05/06/17 @ 1050 Labetalol HCl (Labetalol HCl) 200 MG TABLET 1 Tablet ORAL TWICE DAILY Qty = 60 Comments: GIVEN 05/06/17 @ 1050 Aspirin (Ecotrin*) 81 MG TABLET.DR 1 Tablet ORAL DAILY Comments: GIVEN 05/06/17 @ 1050 Gabapentin (Neurontin) 100 MG CAPSULE 200 Milligram ORAL 1300 Qty = 90 Comments: NOT GIVEN Gabapentin (Gabapentin) 300 MG CAPSULE 1 Capsule ORAL TWICE DAILY Qty = 120 Comments: NOT GIVEN Naloxone HCl (Narcan) 4 MG/ACTUATION SPRAY 4 Milligram In the nose As Directed as needed for OPIOID INDUCED RESP. DEPRESSIO Comments: GIVEN 05/04/17 @ 1040 Atorvastatin Calcium (Lipitor) 40 MG TABLET 1 Tablet ORAL DAILY Comments: GIVEN 05/05/17 @ 1640 Amlodipine Besylate (Norvasc) 10 MG TABLET 1 Tablet ORAL DAILY Comments: NOT GIVEN Cyanocobalamin (Vitamin B-12) 1,000 MCG TABLET 1 Tablet ORAL DAILY Comments: GIVEN 05/06/17 @ 1050 Acetaminophen (Acephen) 650 MG SUPP.RECT 1 SUPPOSITORY RECTALLY Q4H as needed for PAIN/TEMP>101 Comments: GIVEN 05/05/17 @ 2130 Diclofenac Potassium (Cambia) 50 MG POWD.PACK 1 Packet ORAL TWICE DAILY as needed for MIGRAINES Comments: NOT GIVEN Alprazolam (Alprazolam) 0.5 MG TABLET 1 Tablet ORAL TWICE DAILY as needed for ANXIETY Comments: NOT GIVEN Ondansetron (Zofran Odt) 4 MG TAB.RAPDIS 1 Tablet SUBLINGUAL Q8H as needed for N/V Comments: NOT GIVEN Trazodone HCl (Trazodone HCl) 50 MG TABLET 0.5 Tablet ORAL TAKE AT BEDTIME as needed for INSOMNIA Comments: GIVEN 05/05/17 @ 2130 Glucagon,Human Recombinant (Glucagon Emergency Kit) 1 MG KIT 1 Milligram INTRAMUSC As Directed as needed for HYPOGLYCEMIA Comments: NOT GIVEN Magnesium Hydroxide (Milk Of Magnesia) 400 MG/5 ML ORAL.SUSP 30 Milliliters ORAL Every 3 days as needed for CONSTIPATION Comments: NOT GIVEN Bisacodyl (Dulcolax) 10 MG SUPP.RECT 1 Suppository RECTAL DAILY as needed for CONSTIPATION Comments: NOT GIVEN Na Phos,M-B/Na Phos,Di-Ba (Fleet Enema) 19 GRAM-7 GRAM/118 ML ENEMA 1 Enema RECTAL DAILY as needed for CONSTIPATION Comments: NOT GIVEN Sennosides (Senna) 8.6 MG TABLET 1 Tablet ORAL TWICE DAILY as needed for CONSTIPATION Comments: NOT GIVEN Menthol/Herbal Drugs (Cough Drops) 1 EACH LOZENGE 1 Lozenge ORAL Q2H as needed for COUGH/THROAT Comments: NOT GIVEN Ipratropium/Albuterol Sulfate (Iprat-Albut 0.5-3(2.5) MG/3 Ml) 0.5 MG-3 MG (2.5 MG BASE)/3 ML AMPUL.NEB 1 VIAL Inhale through mouth Q4H as needed for WHEEZING Comments: GIVEN 05/06/17 @ 0845 Sodium Chloride (Saline Nasal [place]) 0.65 % SPRAY 2 [place] Both sides of nose 4XDAILY as needed for DRYNESS Comments: NOT GIVEN Ipratropium [place] (Ipratropium [place]) 0.2 MG/ML (0.02 %) SOLUTION 1 Vial Inhale Solution 4 TIMES A DAY as needed for COPD Comments: GIVEN 05/06/17 @ 0845 Escitalopram Oxalate (Lexapro) 20 MG TABLET 1 Tablet ORAL DAILY Qty = 120 Comments: GIVEN 05/06/17 @ 1050 Cetirizine HCl (Zyrtec) 10 MG TABLET 1 Tablet ORAL DAILY Qty = 30 Comments: NOT GIVEN Fish Oil/Borage/Flax/Om3,6,9#1 ([place] 3-6-9 1,200 MG Softgel) 1,200 MG CAPSULE 1 Capsule ORAL DAILY Qty = 90 Comments: NOT GIVEN Start taking the following new medications: Prednisone (Prednisone) 10 MG TABLET 1 Tablet ORAL DAILY Qty = 7 No Refills Instructions: PLEASE TAKE THE TAPER IN THE DISCHARGE INSTRUCTION . Comments: GIVEN 05/06/17 @ 1050 Copies To: JOVANA ARAGON,ABDOUL Llamas; KURT ARAGON,ROB Attending MD Review Statement Documenting Attending: MAURO BURKS M.D Other Findings: Patient is medically stable to be discharged back to [facility] today.
[2017-05-06 08:19] LABS: ABSOLUTE BASOPHIL COUNT 0 /CUMM (0.0-0.2); ABSOLUTE EOSINOPHIL COUNT 0 /CUMM (0.0-0.7); ABSOLUTE LYMPH COUNT 2.9 /CUMM (1.2-3.4); ABSOLUTE MONOCYTE COUNT 0.8 /CUMM (0.10-0.60); BASOPHIL % 0.2 % (0.0-2.0); EOSINOPHIL % 0 % (0-5); GRANULOCYTE % 65.1 % (42.2-75.2); HEMATOCRIT 30.5 % (37-47); MEAN CORPUSCULAR HGB 27.4 PG (27.0-31.0); MEAN CORPUSCULAR HGB CONC 32.3 G/DL (33.0-37.0); MEAN CORPUSCULAR VOLUME 84.8 FL (81.0-99.0); MEAN PLATELET VOLUME 9.2 FL (7.4-10.4); PLATELET COUNT 223 /CUMM (130-400); RBC DISTRIBUTION WIDTH 15.2 % (11.5-14.5); WHITE BLOOD CELL COUNT 10.8 /CUMM (4.8-10.8)
--- NOTE | 2017-05-06 09:51 | Patient Discharge Instructions ---
Discharge Instructions General Discharge Information You were seen/treated for: - Altered mental status 2/2 hypercarbia - Acute hypoxic and hypercarbic respiratory failure 2/2 opiod overdose vs COPD exacrbation Special Instructions: Please F/U with your primary care physician in one week. Please F/U with your Brass Sorter for BiPAP at night in one week. Please F/U with your psychiatrist in one weeek. Please take Prednisone as directed below 3 tablets on 05/07/17 2 tablets daily from 05/08/17 through 05/09/17 1 tablet daily from 05/10/17 through 05/11/17 Diet Recommended Diet: Diabetic Activity Activity Self Limited: Yes Acute Coronary Syndrome Inclusion Criteria At DC or during hospital stay patient has or had the following: ACS DIAGNOSIS No Discharge Core Measures Meds if any: Prescribed or Continued at Discharge Meds if any: NOT Prescribed or Continued at Discharge Congestive Heart Failure Inclusion Criteria At DC or during hospital stay patient has or had the following: CHF DIAGNOSIS No Discharge Core Measures Meds if any: Prescribed or Continued at Discharge Meds if any: NOT Prescribed or Continued at Discharge Cerebrovascular accident Inclusion Criteria At DC or during hospital stay patient has or had the following: CVA/TIA Diagnosis No Discharge Core Measures Meds if any: Prescribed or Continued at Discharge Meds if any: NOT Prescribed or Continued at Discharge Venous thromboembolism Inclusion Criteria VTE Diagnosis No VTE Type NONE VTE Confirmed by (Test) NONE Discharge Core Measures - Per Current guidelines, there needs to be overlap - treatment for the first 5 days of Warfarin therapy. - If discharged on Warfarin prior to 5 days of - overlap therapy, the patient will need to be - assessed for post discharge needs including - *Post discharge parental anticoagulation - *Warfarin and/or parental anticoagulation education - *Follow up date to check INR post discharge At least 5 days overlap therapy as Inpatient No Meds if any: Prescribed or Continued at Discharge Note: Overlap Therapy is Warfarin and Anticoagulant Meds if any: NOT Prescribed or Continued at Discharge
[2017-05-06 10:00] VITALS: BP 140/60
--- NOTE | 2017-05-06 10:16 | PN- Psychiatry ---
Assessment/Plan Impression: Identifying Info: 76-year-old female brought in from assisted living facility for altered mental status and suspeced prescribed opiate OD. She has a hx of MDD. Patient mentation has cleared and she is now medically stable. Reconsult requested because patient stated she wanted to "slit her wrists," last night during care. SUBJECTIVE Patient reports "it was just in the heat of the momnent, I apologize." Denies any history of suicide attempt. Denies any family history of suicide attempt. Denies any self-harm behaviors at all in the past. Contracts for safety both in the hospital and after discharge and verbalizes understanding that if she does become suicidal she needs to seek help by calling 911. OBJECTIVE Mental Status Exam Presentation/Appearance: Cooperative with evaluation. Hospital garb. Sleeping in bed Orientation: Grossly oriented Sensorium: Somnolent but easily aroused. Eye contact: Appropriate Affect: Somewhat blunted Mood: "Fine" Depression: Denies Anxiety: Denies Thought Content: - Denies SI/HI, AH/VH, PI. States and also believes they will not kill themselves. - Denies Hopeless/Helpless Thoughts Thought Process: Linear Associations: Appropriate Speech: WNL Judgment: Intact Insight: Intact Cognition: Memory: Grossly intact Attention/Concentration: Grossly intact Fund of Knowledge: Adequate ASSESSMENT 76-year-old female with a history of MDD and suspected overuse of prescribed opiates presents with altered mental status that responded positively to Narcan. She was briefly delirious due to hypoxia and medication but this has resolved. She expressed suicidal ideation in a moment of frustration but patient had no intent or plan. She is not an active threat to self or others. Diagnosis Delirium mixed level of activity, resolved By history major depressive disorder Rule out opiate use disorder A total of 30 minutes was spent with the patient with more than 50% of the time spent in counseling and/or coordination of care. Suggestion: 1. Discontinue haloperidol on discharge. 2. Continue psychotropic meds as currently ordered. Thank you for including psychiatry in this case we'll continue to follow on an as-needed basis. Subjective Subjective: as above Objective Last 24 Hrs of Vital Signs/I&O Current Medications Sig/Madison Start time Last Medication Dose Route Stop Time Status Admin Acetaminophen 650 MG Q4P PRN 05/05 1645 AC 05/05 PO 2126 Acetaminophen 650 MG Q4P PRN 05/04 0645 DC NE Albuterol Sulfate 3 ML EVERY 4 HRS/AWAKE 05/04 1200 AC 05/06 INH 0844 Amlodipine Besylate 10 MG DAILY 05/06 1000 CAN PO Aspirin Buffered 81 MG DAILY 05/05 1000 AC 05/05 PO 1005 Atorvastatin Calcium 40 MG 1700 08 1700 AC 05/05 PO 1637 Cyanocobalamin 1,000 MCG DAILY 05/05 1000 AC 05/05 PO 1005 Escitalopram Oxalate 20 MG DAILY 05/05 1000 AC 05/05 PO 1005 Haloperidol 2 MG TID PRN 05/05 2130 AC 05/05 PO 2125 Haloperidol 2 MG TID PRN 05/04 1815 DC 06 PO 2002 Heparin Sodium 5,000 UNIT Q8 05/04 1400 AC 05/06 (Porcine) SC 0525 Hydralazine HCl 100 MG BID 05/06 1000 AC PO Insulin Aspart 0 TIDAC 05/06 0800 AC SC Insulin Human Regular 6 UNITS .STK-MED ONE 05/05 1823 DC IV 05/05 1824 Insulin Human Regular 4 UNITS .STK-MED ONE 05/05 1300 DC IV 05/05 1301 Insulin Human Regular 0 Q6 05/04 1200 DC 05/05 SC 1824 Ipratropium [place] 2.5 ML EVERY 4 HRS/AWAKE 05/04 1200 AC 05/06 INH 0844 Labetalol HCl 200 MG BID 05/05 1000 AC 05/05 PO 2131 Levothyroxine Sodium 0.075 MG DAILY AC 05/05 0758 AC 05/06 PO 0525 Melatonin 5 MG AT BEDTIME 05/04 2200 AC 05/05 PO 2126 Methylprednisolone 40 MG DAILY 05/05 1000 DC 05/05 IV 1005 Patient Medication 1 ED .STK-MED ONE 05/05 1313 DC Teaching ED 05/05 1314 Prednisone 5 MG DAILY 05/12 1000 AC PO 05/13 1001 Prednisone 10 MG DAILY 05/10 1000 AC PO 05/11 1001 Prednisone 20 MG DAILY 05/08 1000 AC PO 05/09 1001 Prednisone 30 MG DAILY 05/06 1000 CAN PO 05/14 0959 Prednisone 30 MG DAILY 05/06 1000 AC PO 05/07 1001 Trazodone HCl 25 MG AT BEDTIME 05/05 2200 AC 05/05 PO 2126 Laboratory Tests 05/06/17 0620: CBC w Diff NO MAN DIFF REQ, RBC 3.60 L, MCV 84.8, MCH 27.4, RDW 15.2 H, MPV 9.2, Gran % 65.1, Lymphocytes % 26.9, Monocytes % 7.8, Eosinophils % 0, Basophils % 0.2, Absolute Granulocytes 7.0 H, Absolute Lymphocytes 2.9, Absolute Monocytes 0.8 H, Absolute Eosinophils 0, Absolute Basophils 0, PUBS MCHC 32.3 L Vital Signs Date Time Temp Pulse Resp B/P B/P Pulse O2 O2 Flow FiO2 Mean Ox Delivery Rate 05/06 0858 95 Nasal 4.0L Cannula 05/06 0000 93 Nasal 5.0L Cannula 05/05 2321 98.4 68 20 144/80 93 Nasal 5.0L Cannula 05/05 2314 98.4 117 16 144/80 92 05/05 2131 110 140/80 05/05 1808 112.0 52 16 138/70 94 05/05 1600 92 Nasal 5.0L Cannula 05/05 1151 92 Nasal 5.0L Cannula Intake & Output 05/06 1600 05/06 0800 05/06 0000 Intake Total 120 120 Output Total 400 400 Balance -280 -280 Intake, Oral 120 120 Output, Urine 400 400
--- NOTE | 2017-05-06 10:40 | NUR ---
Physical therapy: Patient approached in AM for PT ethel. Patient refused at this time due to fatigue stating "there is no way I can get up with a walker right now, please come back later". Approached pt a second time and pt soundly sleeping. Will follow up later in PM as time permits. Thank you.
[2017-05-06] MEDS ORDERED: PREDNISONE10 M2 PO ×2 (12:19→12:20)
--- NOTE | 2017-05-06 13:51 | PN- Pulmonary ---
Subjective HPI/Critical Care Issues: doing well afebrile vss Objective Current Medications: Current Medications Sig/Madison Start time Last Medication Dose Route Stop Time Status Admin Acetaminophen 650 MG Q4P PRN 05/05 1645 AC 05/05 PO 2126 Acetaminophen 650 MG Q4P PRN 05/04 0645 DC NH Albuterol Sulfate 3 ML EVERY 4 HRS/AWAKE 05/04 1200 AC 05/06 INH 0844 Amlodipine Besylate 10 MG DAILY 05/06 1000 CAN PO Aspirin Buffered 81 MG DAILY 05/05 1000 AC 05/06 PO 1048 Atorvastatin Calcium 40 MG 1700 08 1700 AC 05/05 PO 1637 Cyanocobalamin 1,000 MCG DAILY 05/05 1000 AC 05/06 PO 1048 Escitalopram Oxalate 20 MG DAILY 05/05 1000 AC 05/06 PO 1049 Haloperidol 2 MG TID PRN 05/05 2130 AC 05/05 PO 2125 Haloperidol 2 MG TID PRN 05/04 1815 DC 05/04 PO 2002 Heparin Sodium 5,000 UNIT Q8 05/04 1400 AC 05/06 (Porcine) SC 0525 Hydralazine HCl 100 MG BID 05/06 1000 AC 05/06 PO 1048 Insulin Aspart 0 TIDAC 05/06 0800 AC SC Insulin Human Regular 6 UNITS .STK-MED ONE 05/05 1823 DC IV 05/05 1824 Insulin Human Regular 0 Q6 05/04 1200 DC 05/05 SC 1824 Ipratropium [place] 2.5 ML EVERY 4 HRS/AWAKE 05/04 1200 AC 05/06 INH 0844 Labetalol HCl 200 MG BID 05/05 1000 AC 05/06 PO 1048 Levothyroxine Sodium 0.075 MG DAILY AC 05/05 0758 AC 05/06 PO 0525 Melatonin 5 MG AT BEDTIME 05/04 2200 AC 05/05 PO 2126 Methylprednisolone 40 MG DAILY 05/05 1000 DC 05/05 IV 1005 Prednisone 5 MG DAILY 05/12 1000 AC PO 05/13 1001 Prednisone 10 MG DAILY 05/10 1000 AC PO 05/11 1001 Prednisone 20 MG DAILY 05/08 1000 AC PO 05/09 1001 Prednisone 30 MG DAILY 05/06 1000 CAN PO 05/14 0959 Prednisone 30 MG DAILY 05/06 1000 AC 05/06 PO 05/07 1001 1049 Trazodone HCl 25 MG AT BEDTIME 05/05 2200 AC 05/05 PO 2126 Vital Signs & I&O Last 24 Hrs of Vitals and I&O: Vital Signs Date Time Temp Pulse Resp B/P B/P Pulse O2 O2 Flow FiO2 Mean Ox Delivery Rate 05/06 1048 140/60 05/06 1048 140/60 05/06 1000 98.1 66 20 140/60 93 05/06 0858 95 Nasal 4.0L Cannula 05/06 0000 93 Nasal 5.0L Cannula 05/05 2321 98.4 68 20 144/80 93 Nasal 5.0L Cannula 05/05 2314 98.4 117 16 144/80 92 08 2131 110 140/80 05/05 1808 112.0 52 16 138/70 94 05/05 1600 92 Nasal 5.0L Cannula Intake & Output 05/06 1600 05/06 0800 05/06 0000 Intake Total 120 120 Output Total 400 400 Balance -280 -280 Intake, Oral 120 120 Output, Urine 400 400 Patient 250 lb Weight Impression/Plan Impression/Plan Impression/Plan: Physical Exam General Appearance AAO x 3 Skin Temp/Moisture Exam: Warm/Dry Sepsis Skin Exam (color): Normal for Ethnicity HEENT Atraumatic, PERRLA, EOMI, dry mucous membranes Neck Supple, No JVD, No thryomegaly Cardiovascular Regular Rate, Normal S1, Normal S2, decrased brath sounds Lungs b/l wheezes Abdomen Normal Bowel Sounds, Soft, No Tenderness, umbilical protusion Extremities b/l lower extremity 2+ edema; has a scar on his LLE; LLE>>RLE Vascular Normal Pulses, Pulses Symmetrical cxr normal LE doppler normal IMPRESSION This is a lady with multiple medical issues which include significant COPD on 2 L of nasal cannula, hypertension, hyperlipidemia, anxiety, diabetes, recent UTI now comes in with altered mental status with * Improved Acute hypoxemic and hypercarbic respiratory failure most likely related to worsening chronic lung disease with end-stage COPD with COPDE, with effects from multiple sedative narcotic combo (on Fentanyl, trazadone, gabapentin, cetrizine, xanax) * Fever upon admission with no clinical pna but pt does get recurrent uti with multidrug resistant Ecoli prob esbl * Hypertension and diabetes, with uncontrolled htn which is concerning to the patient * Anxiety and depression with pain in the past * Previous lung nodules but patient had refused further workup before per patient but she does not want to go through to many testing in the past REC pt wishes no bipap IVF till she can take po ok to dc soon Change to po prednisone 30 and wean in few days Cont levoxyl Watch for withdrawal When she is able start low dose meds to avoid withdrawal Pt wishes to be dnr and dni
[2017-05-06 15:01] VITALS: BP 140/60
== END 2017-05-06 17:40 | DRG 189 ==
LOC: ERH 18:06 → ERHI 20:39 → 1NO 05-04 05:21 → CANBEDREQ 05-04 06:25 → ERHI 05-04 07:06 → EDBEDREQ 05-04 10:19 → ENTRNSPT 05-04 13:12 → EDTRNSPTSTS 05-04 13:23 → 1NO 05-04 13:39 → CMPTRNSPT 05-04 13:58 → 1NO 05-04 15:06 → ENPENDDIS 05-06 12:35 → 1NO 05-06 17:40
PROVIDERS: Emergency Medicine; Internal Medicine Infectious Disease; ADMIT Emergency Medicine
DX: J96.02 Acute respiratory failure with hypercapnia (principal); J44.1 Chronic obstructive pulmonary disease with (acute) exacerbation; E66.01 Morbid (severe) obesity due to excess calories; E86.0 Dehydration; G62.9 Polyneuropathy, unspecified; E11.9 Type 2 diabetes mellitus without complications; F11.10 Opioid abuse, uncomplicated; I10 Essential (primary) hypertension; D50.9 Iron deficiency anemia, unspecified; J96.01 Acute respiratory failure with hypoxia; T40.4X5A Adverse effect of other synthetic narcotics, initial encounter; Z68.39 Body mass index [BMI] 39.0-39.9, adult; R41.0 Disorientation, unspecified; F32.9 Major depressive disorder, single episode, unspecified; E78.5 Hyperlipidemia, unspecified; E03.9 Hypothyroidism, unspecified; F41.9 Anxiety disorder, unspecified; G47.00 Insomnia, unspecified; F51.9 Sleep disorder not due to a substance or known physiological condition, unspecified; Z66 Do not resuscitate; Z79.84 Long term (current) use of oral hypoglycemic drugs
CPT/HCPCS: 1NSP; 36415; 80307; 81001; 82436; 87040; 87070; 87086; 87449; 87450; 93005; 93010; 93970; 96374; 96375; 96376; 99291; G0480; J0713; J1644; J1815; J2310; J2920; J2930; J3370; J7040; J7042; J7512

== ENCOUNTER 2018-07-10 17:22 | Emergency (ER) | payer OTHER, MEDICARE ==
[~2018-07-10 17:22] MED LIST changes: +ACEPHEN650 M1 PR; +ACETAMINOPHEN325 M2 PO; +ALL DAY ALLERGY10 MG PO; +ALPRAZOLAM0.5 M4 PO; +ASPIRIN EC81 M1 PO; +CAMBIA50 M1 PO; +COUGH DROPS1 EACH PO; +COUGH SYRU100 MG/5 M PO; +DOXYCYCLINE HY100 M2 PO; +DULCOLAX10 M1 RC; +FENTANYL1 EAC2 TOP; +FLEET ENEMA133 ML RC; +GABAPENTIN300 M2 PO; +GLUCAGON EMERGEN1 M1 IM; +IPRAT-ALBUT 0.5-3 ML INH; +LEXAPRO20 M1 PO; +LIPITOR40 M1 PO; +MILK OF MA400 MG/52 PO; +NARCAN4 MG NAS; +NEURONTIN100 M1 PO; +OMEGA 3-6-9 11200 MG PO; +PREDNISONE10 M2 PO; +SALINE NASAL SP30 ML NASB; +SENNA8.6 M3 PO; +TRAMADOL HCL50 M1 PO; +TRAZODONE HCL50 M1 PO; +TYLENOL WITH C1 EACH PO; +VITAMIN B-121000 MC3 PO; +VITAMIN B122500 MC2 PO; +ZOFRAN ODT4 M1 SL; +ZYRTEC10 M3 PO
--- NOTE | 2018-07-10 18:32 | ED PSYCHIATRIC COMPLAINT ---
History of Present Illness General Chief Complaint: Psychiatric Related Complaint Stated Complaint: BIBA +SI Source: patient Exam Limitations: no limitations Vital Signs & Intake/Output Vital Signs & Intake/Output Vital Signs Date Time Temp Pulse Resp B/P B/P Pulse O2 O2 Flow FiO2 Mean Ox Delivery Rate 07/11 0900 98.0 71 20 122/54 100 Nasal 4.0L Cannula 07/11 0852 98.8 65 18 138/67 07/11 0852 98.8 65 18 138/67 07/11 0851 98.8 65 18 138/67 07/11 0759 93 Nasal 4.0L Cannula 07/11 0648 98.8 65 18 138/67 98 Room Air 07/11 0142 98.0 67 18 130/68 97 Nasal 5.0L Cannula 07/10 2200 98.6 68 20 138/62 97 Nasal 4.0L Cannula 07/10 2154 98.6 68 20 138/62 07/10 2154 98.6 68 20 138/62 07/10 2006 97.7 69 18 168/78 96 Nasal 4.0L Cannula 07/10 1857 Nasal Cannula 07/10 1744 99.0 64 17 138/63 98 Nasal 3.0L Cannula ED Intake and Output 07/11 0000 07/10 1200 Intake Total 0 Output Total Balance 0 Intake, Oral 0 Allergies Coded Allergies: Penicillins (UNKNOWN 05/04/17) Sulfa (Sulfonamide Antibiotics) (UNKNOWN 05/04/17) amoxicillin (UNKNOWN 05/04/17) crab (UNKNOWN 05/04/17) erythromycin base (UNKNOWN 05/04/17) potassium iodide (UNKNOWN 05/04/17) Reconcile Medications Acetaminophen 325 MG TABLET 2 TAB PO Q4 HRS NEEDED PRN GENERAL DISCOMFORT (Reported) Alprazolam 0.5 MG TABLET 1 TAB PO BID PRN ANXIETY (Reported) Amlodipine Besylate (Norvasc) 10 MG TABLET 1 TAB PO DAILY BP (Reported) Aspirin (Ecotrin*) 81 MG TABLET.DR 1 TAB PO DAILY HEART/BLOOD (Reported) Atorvastatin Calcium (Lipitor) 40 MG TABLET 1 TAB PO DAILY CHOLESTEROL ( Reported) Bisacodyl (Dulcolax) 10 MG SUPP.RECT 1 SUP RC DAILY PRN CONSTIPATION ( Reported) Cetirizine HCl (Zyrtec) 10 MG TABLET 1 TAB PO DAILY ALLERGIES (Reported) Cyanocobalamin (Vitamin B-12) 1,000 MCG TABLET 1 TAB PO DAILY SUPPLEMENT ( Reported) Doxycycline Hyclate 100 MG CAPSULE 1 TAB PO BID LUNG INFECTION Escitalopram Oxalate (Lexapro) 20 MG TABLET 1 TAB PO DAILY DEPRESSION ( Reported) Eucalyptus/Menthol (Cough Drops) 1 EACH [place] 1 [place] PO Q2 HRS NEEDED PRN COUGH (Reported) Fish Oil/Borage/Flax/Om3,6,9#1 ([place] 3-6-9 1,200 MG Softgel) 1,200 MG CAPSULE 1 CAP PO DAILY CHOLESTROL (Reported) Gabapentin (Neurontin) 100 MG CAPSULE 200 MG PO 1300 NEUROPATHY (Reported) Gabapentin 300 MG CAPSULE 1 CAP PO BID NEUROPATHY (Reported) Glucagon,Human Recombinant (Glucagon Emergency Kit) 1 MG KIT 1 MG IM AD PRN HYPOGLYCEMIA (Reported) Hydralazine HCl 100 MG TABLET 1 TAB PO BID high blood pressure Ipratropium [place] 0.2 MG/ML (0.02 %) SOLUTION 1 Vial INH/ANTONINO 4 TIMES/DAY PRN COPD (Reported) Ipratropium/Albuterol Sulfate (Iprat-Albut 0.5-3(2.5) MG/3 Ml) 0.5 MG-3 MG (2.5 MG BASE)/3 ML AMPUL.NEB 1 VIAL INH Q4H PRN WHEEZING (Reported) Labetalol HCl 200 MG TABLET 1 TAB PO BID high blood pressure Levothyroxine Sodium 75 MCG TABLET 1 TAB PO DAILY HYPOTHYROID (Reported) Magnesium Hydroxide (Milk Of Magnesia) 400 MG/5 ML ORAL.SUSP 30 ML PO Q3D PRN CONSTIPATION (Reported) Meloxicam 15 MG TABLET 1 TAB PO DAILY PAIN (Reported) Montelukast Sodium 10 MG TABLET 1 TAB PO DAILY COUGH (Reported) Na Phos,M-B/Na Phos,Di-Ba (Fleet Enema) 19 GRAM-7 GRAM/118 ML ENEMA 1 E RC DAILY PRN CONSTIPATION (Reported) Naloxone HCl (Narcan) 4 MG/ACTUATION SPRAY 4 MG FLORINA AD PRN OPIOID INDUCED RESP. DEPRESSIO (Reported) Ondansetron (Zofran Odt) 4 MG TAB.RAPDIS 1 TAB SL Q8H PRN N/V (Reported) Sennosides (Senna) 8.6 MG TABLET 1 TAB PO BID PRN CONSTIPATION (Reported) Sodium Chloride (Saline Nasal [place]) 0.65 % SPRAY 2 SPRAY NASB 4XDAILY PRN DRYNESS (Reported) Tramadol HCl 50 MG TABLET 1 TAB PO TID PAIN (Reported) Trazodone HCl 50 MG TABLET 0.5 TAB PO QHS PRN INSOMNIA (Reported) Triage Note: [facility] AFTER MAKING SI STATEMENTS TO RIPENING ROOM ATTENDANT. PT STATES DEPRESSED FEELINGS RELATED TO FEELING PEPE AND LACK OF FAMILY SUPPORT. STATED TO RIPENING ROOM ATTENDANT SHE WAS WORRIED ABOUT ALL THE NEGATIVE THOUGHTS SHES BEEN HAVING RECENTLY. DENIES SPECIFIC PLAN TO HARM SELF BUT BELIEVES SHE MAY NEED TO START TAKING AN ANTIDEPRESSANT. 02 DEPENDENT ON 3L NC. DENIES MEDICAL COMPLAINTS. A/O X 4. Triage Nurses Notes Reviewed? yes Onset: Gradual Duration: day(s): Timing: recent history Severity: moderate HPI: 78yo female BIBA from assisted living for depression and suicidal ideation. Patient endorses recent intermittent depression and states that today she was talking to a social media sr strategy manager and said if things state the same way she wishes she weren't here. Patient states her daughter recently was visiting here in [place] and patient got upset the daughter did not spend much time with her. Patient states that her about one year ago and she is dreaming about him which makes her miss him and also causes depression. Patient feels lonely. She is not currently on any psychiatric medications. Patient denies suicidal plan or intent, she does not believe she would act on her suicidal thoughts. The patient denies HI, etoh use. (Lula Dotson) Past History Travel History Traveled to [place] past 21 day No Medical History Any Pertinent Medical History? see below for history Neurological: migraine EENT: NONE Cardiovascular: hypertension, hyperlipidemia Respiratory: COPD (on 2.0 liters of O2) Gastrointestinal: NONE Hepatic: NONE Renal: NONE Musculoskeletal: osteoarthritis, CHRONIC PAIN Psychiatric: OPIOID ABUSE Endocrine: diabetes Blood Disorders: NONE Cancer(s): NONE History of MRSA: No History of VRE: No History of CDIFF: No Surgical History Surgical History: RLE surgery for cancer Psychosocial History What is your primary language Vietnamese Tobacco Use: Quit >30 days ago ETOH Use: denies use Illicit Drug Use: denies illicit drug use Family History Family History, If Any: Relation not specified for: FH: diabetes mellitus Hx Contributory? No (Lula Dotson) Review of Systems Review of Systems Constitutional: Reports: no symptoms. EENTM: Reports: no symptoms. Respiratory: Reports: no symptoms. Cardiovascular: Reports: no symptoms. GI: Reports: no symptoms. Genitourinary: Reports: no symptoms. Musculoskeletal: Reports: no symptoms. Skin: Reports: no symptoms. Neurological/Psychological: Reports: see HPI. Hematologic/Endocrine: Reports: no symptoms. Immunologic/Allergic: Reports: no symptoms. All Other Systems: Reviewed and Negative (Krissy YOUNG,Lula Delgado) Physical Exam Physical Exam General Appearance: well developed/nourished, no apparent distress, alert, awake Head: atraumatic, normal appearance Eyes: Bilateral: normal appearance. Ears, Nose, Throat: hearing grossly normal Neck: normal inspection, supple, full range of motion Respiratory: normal breath sounds, no respiratory distress, lungs clear Cardiovascular: regular rate/rhythm Gastrointestinal: soft, non-tender Extremities: normal range of motion Neurological/Psychiatric: no motor/sensory deficits, awake, normal mood/affect, calm Appearance/Memory/Insight: appropriate appearance, appropriate insight Behavoir/Eye Contact/Speech: cooperative, normal speech, good eye contact Thoughts/Hallucinations: normal thought pattern, no apparent hallucination Skin: intact, normal color, warm/dry SAD PERSONS SAD PERSONS Response Value Age <19 or >45 years? yes 1 Depression/Hopelessness? yes 2 Single//? yes 1 Social Support? has no support 1 Total 5 SAD PERSONS Done? yes (Lula Dotson) Progress Differential Diagnosis: dementia, drug overdose, depression, suicidal ideation Plan of Care: Orders Procedure Date/time Status Regular Diet 07/11 B Active Straight Cath 07/10 1936 Active Continuous Observation Monitor 07/10 1852 Active ETHANOL 07/10 1852 Complete COMPREHENSIVE METABOLIC PANEL 07/10 185 Complete CBC WITHOUT DIFFERENTIAL 07/10 1852 Complete ED CRISIS PSYCH CONSULT 07/10 185 Active URINE DRUG SCREEN FOR ER ONLY 07/10 175 Complete URINALYSIS 07/10 175 Complete Current Medications Sig/Madison Start time Last Medication Dose Stop Time Status Admin Amlodipine Besylate 10 MG DAILY 07/11 0900 UNVr 07/11 (Norvasc) 0852 Aspirin Buffered 81 MG DAILY 07/11 09 UNVr 07/11 (Ecotrin) 0852 Escitalopram Oxalate 20 MG 0807/11 0800 UNVr 07/11 (Lexapro) 0851 Metformin HCl 500 MG 0800,1700 07/11 0800 UNVr 07/11 (Glucophage) 0851 Levothyroxine Sodium 0.088 MG DAILY AC 07/11 0700 UNVr 07/11 (Synthroid) 0629 Lorazepam 1 MG Q4P PRN 07/11 0130 UNVr (Ativan) Acetaminophen 650 MG Q4P PRN 07/100 UNVr 07/11 (Tylenol) 0629 Gabapentin 300 MG BID 07/10 2100 UNVr 07/11 (Neurontin) 0852 Hydralazine HCl 100 MG BID 07/10 2100 UNVr 07/11 (Apresoline) 0851 Ibuprofen 600 MG TID 07/10 2100 UNVr (Motrin) Labetalol HCl 200 MG BID 07/10 2100 UNVr 07/11 (Trandate-Normodyne 0852 200MG Tab) Senna 187 MG AT BEDTIME 07/10 2100 UNVr 07/10 (Senokot) 215 Tramadol HCl 50 MG TID 07/10 2100 UNVr 07/11 (Ultram) 0851 Laboratory Tests 07/10/180: Urine Opiates Screen < 100, Methadone Screen 71, Barbiturate Screen < 60, Ur Phencyclidine Scrn < 6.00, Amphetamines Screen 188, U Benzodiazepines Scrn > 800 H, Urine Cocaine Screen < 50, Urine Cannabis Screen < 5.00, Urine Color YEL, Urine Clarity HAZY H, Urine pH 6.0, Ur Specific [place] 1.025, Urine Protein NEG, Urine Ketones NEG, Urine Nitrite POS H, Urine Bilirubin NEG, Urine Urobilinogen 0.2, Ur Leukocyte Esterase MOD H, Ur Microscopic SEDIMENT EXAMINED , Urine RBC FEW H, Urine WBC 25-50 H, Ur Epithelial Cells MOD H, Urine Bacteria MANY H, Urine Hemoglobin NEG, Urine Glucose NEG 07/10/18 1905: Anion Gap 6, Estimated GFR 48 L, BUN/Creatinine Ratio 16.4, Glucose 126 H, Calcium 8.6, Total Bilirubin < 0.1 L, AST 10 L, ALT 17, Alkaline Phosphatase 49, Total Protein 6.0 L, Albumin 3.4 L, Globulin 2.6, Albumin/Globulin Ratio 1.3, CBC w Diff NO MAN DIFF REQ, RBC 3.40 L, MCV 87.6, MCH 27.3, MCHC 31.2 L, RDW 16.3 H, MPV 7.9, Gran % 76.7 H, Lymphocytes % 14.4 L, Monocytes % 6.1, Eosinophils % 2.6, Basophils % 0.2, Absolute Granulocytes 6.5, Absolute Lymphocytes 1.2, Absolute Monocytes 0.5, Absolute Eosinophils 0.2, Absolute Basophils 0, Serum Alcohol < 10.0 Chemistry panel and urine drug screen are pending. The patient was signed out to Dr. Yates pending labs and crisis evaluation and disposition. Hand-Off Endorsed To: Chi Yates MD Endorsed Time: 1999 Pending: consult (crisis), labs (Lula Dotson) Comments: Patient has been seen and evaluated by pre billing clinician. Patient is stable for discharge back to her nursing facility. (Heri Lee MD) Departure Departure Condition: Stable Clinical Impression Primary Impression: Depression Qualifiers: Depression Type: unspecified Qualified Code: F32.9 - Major depressive disorder, single episode, unspecified Secondary Impressions: Suicidal ideation Referrals: Ivonne Christian MD (PCP/Family) Departure Forms: Customer Survey General Discharge Information (Lula Dotson) Departure Comments pt signed out to dr. lee, 07/11/18, 7am. PA/STORE SPECIALIST Co-Sign Statement Statement: ED Attending supervision documentation- [] I saw and evaluated the patient. I have also reviewed all the pertinent lab results and diagnostic results. I agree with the findings and the plan of care as documented in the PA's/STORE SPECIALIST's documentation. [x] I have reviewed the ED Record and agree with the PA's/STORE SPECIALIST's documentation. [] Additions or exceptions (if any) to the PAs/STORE SPECIALIST's note and plan are summarized below: [] (Chi Yates MD) Departure Disposition: ACUTE REHAB FACILITY (Jesus ARAGON,Heri Sampson)
[2018-07-10 19:20] LABS: ABSOLUTE BASOPHIL COUNT 0 /CUMM (0.0-0.2); ABSOLUTE EOSINOPHIL COUNT 0.2 /CUMM (0.0-0.7); ABSOLUTE GRANULOCYTE CT 6.5 /CUMM (1.4-6.5); ABSOLUTE LYMPH COUNT 1.2 /CUMM (1.2-3.4); ABSOLUTE MONOCYTE COUNT 0.5 /CUMM (0.10-0.60); BASOPHIL % 0.2 % (0.0-2.0); EOSINOPHIL % 2.6 % (0-5); GRANULOCYTE % 76.7 % (42.2-75.2); HEMATOCRIT 29.7 % (37-47); MEAN CORPUSCULAR HGB 27.3 PG (27.0-31.0); MEAN CORPUSCULAR HGB CONC 31.2 G/DL (33.0-37.0); MEAN CORPUSCULAR VOLUME 87.6 FL (81.0-99.0); MEAN PLATELET VOLUME 7.9 FL (7.4-10.4); PLATELET COUNT 231 /CUMM (130-400); RBC DISTRIBUTION WIDTH 16.3 % (11.5-14.5); WHITE BLOOD CELL COUNT 8.4 /CUMM (4.8-10.8)
[2018-07-11 09:00] VITALS: BP 122/54
--- NOTE | 2018-07-11 13:02 | ED PSYCH CRISIS CONSULTATION ---
Crisis Consult Basic Assessment Date of Consult: 07/11/18 Insurance Authorization: Insurance #1: Insurance name: MEDICARE A Phone number: Policy number: [id number] Group number: Authorization number: ED Provider: Patient's ED Provider: Lula Dotson Primary Care Physician: Patient's PCP: Ivonne Christian MD PCP's Current Psychiatrist: [facility] Chief Complaint: Psychiatric Related Complaint Patient's Quote: "im ready to go home I made a stupid comment" Present Illness: 78 year old female BIBA for +SI comments "my is sometimes I wish I was ". Pt currently lives in [facility]. Pt reports passing away "a little over a year ago". Pt reports feeling sad beacuse her daughter came to visit and "didnt stay long enough so now I miss her". Pt reports no longer having thoughts of SI/HI or AVH. Pt reports a slightly decreased appetite and sleeping "about the same as usual" Pt has no prior psychiatric admissions and no history of SA. Pt denies and current psychiatric medication but is "on a whole lot of regular meds". Pt jabari nay history of trauma and states "i feel very happy im ready to leave". This sports book writer spoke with Pt's Deputy Jailer Zoë at [facility] and was informed that Pt has never made comments like this before, pt was to be evaluated by psychiatrist at [facility] but was not able to be seen. Psychiatrist at [facility] informed staff to send PT to [place] to be evaluated. Pt is to return to [facility] and recieve psyc services through the [facility] along with returning to groups and daily rec activities. Patient's Address: [place] [address] Other Phone Number: Allergies - Coded Allergies: Penicillins (UNKNOWN 05/04/17) Sulfa (Sulfonamide Antibiotics) (UNKNOWN 05/04/17) amoxicillin (UNKNOWN 05/04/17) crab (UNKNOWN 05/04/17) erythromycin base (UNKNOWN 05/04/17) potassium iodide (UNKNOWN 05/04/17) Current Medications - Scheduled Medications Amlodipine Besylate (Norvasc) 10 MG TABLET 1 TAB PO DAILY BP (Reported) Entered as Reported by Carmen Rouse on 05/03/171910 Aspirin (Ecotrin*) 81 MG TABLET.DR 1 TAB PO DAILY HEART/BLOOD (Reported) Entered as Reported by Carmen Rouse on 05/03/171906 Atorvastatin Calcium (Lipitor) 40 MG TABLET 1 TAB PO DAILY CHOLESTEROL ( Reported) Entered as Reported by Carmen Rouse on 05/03/171910 Cetirizine HCl (Zyrtec) 10 MG TABLET 1 TAB PO DAILY ALLERGIES #30 (Reported) Entered as Reported by Lori Perez on 05/04/17 06 Cyanocobalamin (Vitamin B-12) 1,000 MCG TABLET 1 TAB PO DAILY SUPPLEMENT ( Reported) Entered as Reported by Carmen Rouse on 05/03/171912 Doxycycline Hyclate 100 MG CAPSULE 1 TAB PO BID LUNG INFECTION #5 TAB Prescribed by Gwen Langston MDm on 09/26/17 Escitalopram Oxalate (Lexapro) 20 MG TABLET 1 TAB PO DAILY DEPRESSION #120 ( Reported) Entered as Reported by Lori Perez on 05/04/17 0608 Fish Oil/Borage/Flax/Om3,6,9#1 ([place] 3-6-9 1,200 MG Softgel) 1,200 MG CAPSULE 1 CAP PO DAILY CHOLESTROL #90 (Reported) Entered as Reported by Lori Perez on 05/04/17 0611 Gabapentin (Neurontin) 100 MG CAPSULE 200 MG PO 1300 NEUROPATHY #90 (Reported ) Entered as Reported by Carmen Rouse on 05/03/171908 Gabapentin 300 MG CAPSULE 1 CAP PO BID NEUROPATHY #120 (Reported) Entered as Reported by Carmen Rouse on 05/03/171908 Hydralazine HCl 100 MG TABLET 1 TAB PO BID high blood pressure #90 TAB Prescribed by Luis Robertson on 02/15/17 Labetalol HCl 200 MG TABLET 1 TAB PO BID high blood pressure #60 TAB Prescribed by Luis Robertson on 02/15/17 Levothyroxine Sodium 75 MCG TABLET 1 TAB PO DAILY HYPOTHYROID (Reported) Entered as Reported by Danielle Laws MD on 02/08/171640 Meloxicam 15 MG TABLET 1 TAB PO DAILY PAIN #30 (Reported) Entered as Reported by Winston Francis on 09/22/17750 Montelukast Sodium 10 MG TABLET 1 TAB PO DAILY COUGH (Reported) Entered as Reported by Danielle Laws MD on 02/08/171643 Tramadol HCl 50 MG TABLET 1 TAB PO TID PAIN #90 (Reported) Entered as Reported by Winston Francis on 09/22/17750 Scheduled PRN Medications Acetaminophen 325 MG TABLET 2 TAB PO Q4 HRS NEEDED PRN GENERAL DISCOMFORT (Reported) Entered as Reported by Winston Francis on 09/22/17752 Alprazolam 0.5 MG TABLET 1 TAB PO BID PRN ANXIETY (Reported) Entered as Reported by Carmen Rouse on 05/03/171914 Bisacodyl (Dulcolax) 10 MG SUPP.RECT 1 SUP RC DAILY PRN CONSTIPATION ( Reported) Entered as Reported by Carmen Rouse on 05/03/171917 Eucalyptus/Menthol (Cough Drops) 1 EACH LOZENGE 1 MARYLIN PO Q2 HRS NEEDED PRN COUGH (Reported) Entered as Reported by Carmen Rouse on 05/03/171919 Glucagon,Human Recombinant (Glucagon Emergency Kit) 1 MG KIT 1 MG IM AD PRN HYPOGLYCEMIA (Reported) Entered as Reported by Carmen Rouse on 05/03/171916 Ipratropium [place] 0.2 MG/ML (0.02 %) SOLUTION 1 Vial INH/ANTONINO 4 TIMES/DAY PRN COPD (Reported) Entered as Reported by Carmen Rouse on 05/03/171923 Ipratropium/Albuterol Sulfate (Iprat-Albut 0.5-3(2.5) MG/3 Ml) 0.5 MG-3 MG (2.5 MG BASE)/3 ML AMPUL.NEB 1 VIAL INH Q4H PRN WHEEZING (Reported) Entered as Reported by Carmen Rouse on 05/03/171920 Magnesium Hydroxide (Milk Of Magnesia) 400 MG/5 ML ORAL.SUSP 30 ML PO Q3D PRN CONSTIPATION (Reported) Entered as Reported by Carmen Rouse on 05/03/171917 Na Phos,M-B/Na Phos,Di-Ba (Fleet Enema) 19 GRAM-7 GRAM/118 ML ENEMA 1 E RC DAILY PRN CONSTIPATION (Reported) Entered as Reported by Carmen Rouse on 05/03/171918 Naloxone HCl (Narcan) 4 MG/ACTUATION SPRAY 4 MG FLORINA AD PRN OPIOID INDUCED RESP. DEPRESSIO (Reported) Entered as Reported by Carmen Rouse on 05/03/171909 Ondansetron (Zofran Odt) 4 MG TAB.RAPDIS 1 TAB SL Q8H PRN N/V (Reported) Entered as Reported by Carmen Rouse on 05/03/171915 Sennosides (Senna) 8.6 MG TABLET 1 TAB PO BID PRN CONSTIPATION (Reported) Entered as Reported by Carmen Rouse on 05/03/171918 Sodium Chloride (Saline Nasal [place]) 0.65 % SPRAY 2 SPRAY NASB 4XDAILY PRN DRYNESS (Reported) Entered as Reported by Carmen Rouse on 05/03/171920 Trazodone HCl 50 MG TABLET 0.5 TAB PO QHS PRN INSOMNIA (Reported) Entered as Reported by Carmen Rouse on 05/03/171915 Laboratory Results: Laboratory Tests 07/10/181919: Urine Opiates Screen < 100, Methadone Screen 71, Barbiturate Screen < 60, Ur Phencyclidine Scrn < 6.00, Amphetamines Screen 188, U Benzodiazepines Scrn > 800 H, Urine Cocaine Screen < 50, Urine Cannabis Screen < 5.00, Urine Color YEL, Urine Clarity HAZY H, Urine pH 6.0, Ur Specific [place] 1.025, Urine Protein NEG, Urine Ketones NEG, Urine Nitrite POS H, Urine Bilirubin NEG, Urine Urobilinogen 0.2, Ur Leukocyte Esterase MOD H, Ur Microscopic SEDIMENT EXAMINED , Urine RBC FEW H, Urine WBC 25-50 H, Ur Epithelial Cells MOD H, Urine Bacteria MANY H, Urine Hemoglobin NEG, Urine Glucose NEG 07/10/181904: Anion Gap 6, Estimated GFR 48 L, BUN/Creatinine Ratio 16.4, Glucose 126 H, Calcium 8.6, Total Bilirubin < 0.1 L, AST 10 L, ALT 17, Alkaline Phosphatase 49, Total Protein 6.0 L, Albumin 3.4 L, Globulin 2.6, Albumin/Globulin Ratio 1.3, CBC w Diff NO MAN DIFF REQ, RBC 3.40 L, MCV 87.6, MCH 27.3, MCHC 31.2 L, RDW 16.3 H, MPV 7.9, Gran % 76.7 H, Lymphocytes % 14.4 L, Monocytes % 6.1, Eosinophils % 2.6, Basophils % 0.2, Absolute Granulocytes 6.5, Absolute Lymphocytes 1.2, Absolute Monocytes 0.5, Absolute Eosinophils 0.2, Absolute Basophils 0, Serum Alcohol < 10.0 Past History Past Medical History Neurological: migraine EENT: NONE Cardiovascular: hypertension, hyperlipidemia Respiratory: COPD (on 2.0 liters of O2) Gastrointestinal: NONE Hepatic: NONE Renal: NONE Musculoskeletal: osteoarthritis, CHRONIC PAIN Psychiatric: OPIOID ABUSE Endocrine: diabetes Blood Disorders: NONE Cancer(s): NONE Past Surgical History Surgical History: RLE surgery for cancer Psychosocial History Strengths/Capabilities: Pt is highly educated and has support of [facility] and staff from [facility] Physical Limitations (Interventions): Pt is on portable o2 and has limited mobility Psychiatric Treatment History Psych Treatment Psychiatric Treatment Yes Inpatient Treatment No Outpatient Treatment No Location of Treatment [facility] Psych[facility] Reason for Treatment Pt has been recieving treatment for depression Diagnosis by History: F 32.9 Unspecified Depression Substance Use/Abuse History Drug Use/Abuse Substances Used/Abused No Substance Abuse Treatment Substance Abuse Treatment Past Substance Abuse [place] No Current Mental Status Mental Status Orientation: Person, Place, Situation Affect: WNL Speech: WNL Neuro-vegetative: Pt reports slight decrease in sleep/appetite Appearance Appearance- Dress/Hygiene: Pt is dressed in hospital scrubs and appears to be attending to ADL's Behaviors Thought Process: WNL Thought Content: WNL Memory: WNL Insight: WNL SI/HI Risk Assessment Past Suicidal Ideation/Attempts Yes ("it wouldnt be so bad to ") Current Suicidal Ideation/Att No Past Homicidal Ideation/Att: No Current Homicidal Ideation/Attempts No Degree of Intent: Made comment "it wouldnt be so bad to just " Risk Factors: age (under 24/over 65), lack of outcome concern, limited support Lethality Ratin PTSD Checklist PTSD Done? patient declined ED Management Sitter: Yes Restraints: No DSM5/PS Stressors/Medical Prob Diagnosis' (DSM 5, Stressors, Medical): F 39 Unspecified mood disorder Current GAF: 45 Departure Disposition Psych Medical Clearance Date: 07/11/18 Medically Cleared at: 1100 Time Started: 1100 Time Ended: 1130 Psychiatrist Consulted: Oliver Date Disposition Established: 07/11/18 Time Disposition Established: 1200 Plan for Disposition - Modality: Return to [facility] will also recieve psyc services Facility: [facility] Follow-up Appt Date: 07/11/18 Follow-Up Appt Time: 0000 ("upon return to [facility]") Contact: Zoë ROBLEDO Rationale for Disposition: [facility] to rec[facility]c services within [facility] Referrals Ivonne Christian MD (PCP/Family)
== END 2018-07-11 12:44 ==
LOC: ERH 17:22
PROVIDERS: Physician Assistant
DX: F32.9 Major depressive disorder, single episode, unspecified (principal); R45.851 Suicidal ideations; Z87.891 Personal history of nicotine dependence
CPT/HCPCS: 1263; 80307; 81001; G0463; G0480; J3101